=== PATIENT | female | born 1995 | race Caucasian/White ===

== ENCOUNTER 2017-04-11 23:52 | Emergency (ER) | payer OTHER, MEDICAID, SELFPAY ==
[2017-04-11 23:52] VITALS: BP 136/96; PULSE 129; RESP 20; TEMP 37; O2SAT 100; BMI 19.1
--- NOTE | 2017-04-12 00:03 | RAD_ITS ---
STUDY: X-RAY CHEST REASON FOR EXAM: Female, 22 years old. Cough for one and half weeks. TECHNIQUE: Single AP portable view of the chest. COMPARISON: 03/22/2016. FINDINGS: The lungs are somewhat hyperinflated. No focal infiltrate is seen. There is no demonstrated pleural abnormality. Normal size heart. Normal mediastinum and natonio. Normal visualized pulmonary arteries. Normal visualized aortic arch and descending thoracic aorta. There is mild dextroscoliosis which could be positional. Normal visualized ribs, clavicles, and shoulders. There is no demonstrated abnormality of the visualized soft tissue structures of the upper abdomen. RAD/Chest 1 View (Portable) IMPRESSION: No active pulmonary disease. Electronically Signed: Michele Montejo MD at 1:01 EST Tel , Service support ,
[2017-04-12] MEDS: DiphenhydrAMINE 50 MG/ML Syringe 12.5 MG IV (00:17)
[2017-04-12] MEDS: MethylPREDNISolone 125 MG/2 ML Vial 80 MG IV (00:17)
--- NOTE | 2017-04-12 01:51 | ED.DCSUM_ITS ---
- ER Visit Summary Date of Service: 04/12/17 Chief Complaint: Lip swelling History of Present Illness: The patient is a 22 F with lower lip swelling that has occurred over the past 3 hours. She was recently started on Tessalon Perles as well as amoxicillin for cough and congestion. She has reportedly taken amoxicillin in the past that difficulty. Father states he also put Orajel on her lower lip tonight for what was assumed to be a canker sore. She denies rash or itching. She denies any difficulty breathing or swallowing. Past history significant for asthma, cerebral palsy, and ADHD. Physical Examination: Initial vital signs are significant for heart rate of 129 , otherwise normal. Her pulse ox is 100% on room air. Patient sitting upright in bed no acute distress. Head neck examination does reveal left lower lip edema. There is no tongue edema and posterior pharynx is normal. Heart is tachycardic and regular. Lung sounds are clear with good air movement. Abdomen is soft nontender. Skin examination reveals no rash or lesions. Test Results: Portable chest was obtained for her recent cough and congestion. There is no evidence of focal infiltrate. Emergency Department Course and Treatment: Patient was treated with Benadryl, Solu-Medrol, and Pepcid. She is rechecked multiple times over the next 2 hours. Lip swelling is improved and she has not developed any tongue edema. At this time patient will stop antibiotics as I do not feel that it is needed. This is consistent with a viral illness. I am concerned she may have had a reaction to the topical Orajel as the swelling was only in the location where this was applied. Father also believes she may have bitten her lip causing swelling. We will closely observe her over the next several days to watch for any worsening. Treatment Plan: [] Disposition: Discharge Impression: Lower lip edema, improved This note was generated with xiao qu wu [employer] dictation software. It may contain incorrect words, spelling, and punctuation that were not noted in review of the chart prior to signing ED Disposition - Plan for ED Patient: Disposition: Home or Assisted Living Chief Complaint: Allergic Reaction Instructions: ED Allergic Reaction Local Other, ED URI Viral Referrals: Tamanna Alvarez MD [Primary Care Provider] - 1-2 Days if not improving
[2017-04-12 02:07] VITALS: PULSE 102; RESP 17; O2SAT 96
--- NOTE | 2017-04-12 02:08 | ED.RN ---
pt and father given written and verbal discharge instructions. pt to stop her antibiotic, pt is to follow up with primary dr. pt father verbalizes understanding of d/c instructions. pt iv d/c and site covered with 2x2 gauze dressing. pt ambulatory home with father.
== END 2017-04-12 02:00 | disposition home or self-care (01) ==
PROVIDERS: Emergency Provider Emergency Medicine; Family Provider Pediatrics; PCP Pediatrics
DX: R60.9 Edema, unspecified (principal); J45.909 Unspecified asthma, uncomplicated; G80.9 Cerebral palsy, unspecified; F90.9 Attention-deficit hyperactivity disorder, unspecified type; R05 Cough
CPT/HCPCS: 71045; 96374; 96375; 99284; A4216; J3490

== ENCOUNTER → 2017-09-18 17:14 | Outpatient (CLI) | payer OTHER, MEDICAID, SELFPAY ==
--- NOTE | 2017-09-18 17:16 | RAD_ITS ---
STUDY: X-RAY CHEST REASON FOR EXAM: Female, 22 years old. Cough TECHNIQUE: PA and lateral COMPARISON: April 12 2017 FINDINGS: The lungs are clear and expanded. There is no demonstrated pleural abnormality. Normal size heart. Normal mediastinum and antonio. Normal visualized pulmonary arteries. Normal visualized aortic arch and descending thoracic aorta. Minor dextroscoliosis of the dorsal spine.. Normal visualized ribs, clavicles, and shoulders. There is no demonstrated abnormality of the visualized soft tissue structures of the upper abdomen. No significant change since prior exam RAD/Chest PA and Lateral IMPRESSION: No acute cardiopulmonary pathology Electronically Signed: Greg Valero MD at 18:00 EDT , Service support ,
== END ==
PROVIDERS: Family Provider Pediatrics; PCP Pediatrics; Visit Provider Pediatrics
DX: R61 Generalized hyperhidrosis (principal)
CPT/HCPCS: 71046

== ENCOUNTER 2018-04-12 21:05 | Emergency (ER) | payer OTHER, MEDICARE, MEDICAID, SELFPAY ==
[2018-04-12 21:06] VITALS: BP 117/72; PULSE 150; RESP 15; TEMP 37.3; BMI 18.9
--- NOTE | 2018-04-12 21:30 | CT_ITS ---
STUDY: CT ABDOMEN AND PELVIS WITH CONTRAST REASON FOR EXAM: Female, 23 years old. Abdomen pain. Nausea and vomiting. RADIATION DOSAGE (If Supplied By Facility): CTDIvol = ( 7.97 ) mGy, DLP = ( 282.29 ) mGycm TECHNIQUE: Transaxial images were obtained from the dome of the diaphragm to the symphysis pubis without oral contrast. Isovue 300 100 IV/Oral was administered. Sagittal and coronal images were reconstructed. Individualized dose optimization techniques were used for this CT. COMPARISON: None. FINDINGS: Ill-defined patchy airspace opacities are noted in the right lower lobe, right middle lobe and left lower lobe suggesting bilateral pneumonia. The visualized portions of the heart are within normal limits. Normal liver. Normal gallbladder and extrahepatic biliary system. Normal spleen. Normal pancreas. Normal bilateral adrenal glands. Normal right kidney. Normal left kidney. Normal visualized stomach. Normal small intestine. Normal colon. The appendix is visualized and appears normal. Normal abdominal aorta. Normal inferior vena cava. Normal retroperitoneum. Normal urinary bladder. Normal abdominal wall. Normal osseous structures. CT/Abdomen/Pelvis WITH Contrast IMPRESSION: Bilateral pneumonia in the lung bases. Electronically Signed: Serafin Givens, at 0:16 EST Tel , Service support ,
[2018-04-12 21:51] LABS: Red Blood Cells-Urine 0 SEEN /hpf (0-5); White Blood Cells 0 SEEN /hpf (0-5)
[2018-04-12] MEDS: 0.9% Normal Saline 1,000 ML 1000 ML IV (21:52)
[2018-04-12 21:53] LABS: Color, Urine Yellow (Yellow); Glucose, Dipstick Normal (Normal); Ketone-Dipstick 15 mg/dl (Negative); Leukocyte Esterase-Dipstick 25 /ul (Negative); Nitrite-Dipstick Positive (Negative); Occult Blood-Urine 10 /ul (Negative); Protein-Dipstick 30 mg/dl (Negative); Urine Clarity Clear (Clear); Urine Urobilinogen 4 mg/dl (Normal)
[2018-04-12] MEDS: proMETHazine 25 MG/ML Syringe 12.5 MG IV (21:53)
[2018-04-12] MEDS: Morphine 2 MG/ML Syringe IV (21:53)
[2018-04-12 21:54] LABS: Urine Bilirubin Dipstick 1 mg/dL (Negative)
[2018-04-12 21:56] VITALS: PULSE 143; RESP 20; O2SAT 94
[2018-04-12 22:04] LABS: Bacteria RARE /hpf (None Seen); Mucous, Urine 1+ /hpf (<or=2+)
[2018-04-12 22:05] LABS: Squamous Epithelial Cells - UA 0-5 SEEN /hpf (5-10)
[2018-04-12 22:08] LABS: Absolute Lymphocyte Count 1.22 X10^3/ul (0.83-4.51); Absolute Neutrophil Count 12.5 X10^3/uL (2.0-7.7); Basophil# 0.01 X10^3/uL; Basophil% 0.1 % (0-1); Eosinophil# 0.04 X10^3/uL; Eosinophils% 0.3 % (0-5); Hematocrit 43.4 % (37-47); Hemoglobin 14.2 g/dl (12.0-15.0); Lymphocyte # 1.22 X10^3/ul (4.0); Lymphocyte % 8.3 % (19-41); Mean Corp Hgb Conc 32.7 g/gl (32-36); Mean Corpuscular Hgb 28.1 pg (27.0-32.0); Mean Corpuscular Volume 85.9 fL (81-99); Mean Platelet Vol. 9.2 fl (6.2-12.0); Monocyte# 0.95 X10^3/uL; Monocyte% 6.4 % (0-10); Neutrophil # 12.49 X10^3/uL (2.7-7.7); Neutrophil % 84.8 % (47-70); POSITIVE COUNT NO; POSITIVE DIFFERENTIAL NO; POSITIVE MORPHOLOGY NO; Platelet Count 348 K/mm3 (150-450); RBC Distribution Width CV 13.1 % (11.6-14.6); RBC Distribution Width SD 41.2 fl (35.1-43.9); Red Blood Count 5.05 M/mm3 (4.2-5.4); White Blood Count 14.7 K/mm3 (4.4-11.0)
[2018-04-12 22:21] LABS: ALB/GLOB Ratio 0.8 RATIO (0.9-2.4); AST(SGOT) 19 U/L (15-37); Alanine Aminotransfer ALT/SGPT 24 U/L (13-56); Albumin, Serum 3.4 g/dL (3.2-5.0); Alkaline Phosphatase 91 U/L (45-117); Anion Gap 13 (5-15); BUN 16 mg/dL (7-18); BUN/Creat Ratio 16.8 RATIO (10-20); Calcium,Total 8.4 mg/dL (8.5-10.1); Chloride 105 mmol/L (98-107); Creatinine, Serum 0.95 mg/dL (0.55-1.02); EST Glomerular Filtration Rate 78 mL/min (>60); Est Glom Filt Rate - Afr Amer 94 mL/min (>60); Estimated Creatinine Clearance 64.52 ml/min; Globulin 4.3 g/dL (2.2-4.2); Glucose 166 mg/dL (74-106); Potassium 3.5 mmol/L (3.5-5.1); Protein, Total 7.7 g/dL (6.4-8.2); Sodium Level 139 mmol/L (136-145)
[2018-04-12 22:25] LABS: Pregnancy, Serum, hCG Quali. NEGATIVE Negative (0-9 Nonpreg)
[2018-04-12 22:46] VITALS: PULSE 113; RESP 18; O2SAT 95
--- NOTE | 2018-04-12 23:43 | ED.VISSUMM ---
- ER Visit Summary Date of Service: 04/12/18 Chief Complaint: [Abdominal pain and vomiting.] History of Present Illness: The patient is a 23 F [presents to the emergency department with complaint of nausea and vomiting and abdominal pain since yesterday. Patient had one episode of diarrhea tonight. Mom states that she initially vomited for about 6 hours when the illness first started and then she stopped vomiting throughout the day but started vomiting and tonight. 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 Patient has been complaining of abdominal pain. She has not had any dysuria. Patient has urinated twice today. Patient also has had a cough and a runny nose for about a week.] Physical Examination: [HEENT-PERRLA, EOMI. Cranial nerves II through XII grossly intact. TMs clear. Mucous membranes dry. No adenopathy. Cardiovascular-regular and tachycardic, no murmurs auscultated Lungs-clear to auscultation, chest wall stable without crepitus or subcu emphysema Abdomen-normoactive bowel sounds, soft. Patient does have tenderness palpation over right lower quadrant with some guarding. There is no rebound, rigidity, or perineal signs. Extremities-intact ?4, normal range of motion, normal pulses, atraumatic] Test Results: [CBC with differential obtained showed a white count of 14.7, hemoglobin 14, hematocrit 43, placed 348. Chemistries unremarkable. Glucose was 166. LFTs were unremarkable. Urinalysis was unremarkable. HCG was negative. CT scan of the abdomen pelvis with IV and p.o. contrast ordered] Emergency Department Course and Treatment: [Was medicated with morphine and Zofran and ordered 2 L of normal saline.] Treatment Plan: [Care of patient turned over to evening physician awaiting CT results and final disposition] Disposition: [Pending] Impression: [Abdominal pain Gastroenteritis] This note was generated with [employer] dictation software. It may contain incorrect words, spelling, and punctuation that were not noted in review of the chart prior to signing ED Disposition - Plan for ED Patient: Referrals: Tamanna Alvarez MD [Primary Care Provider] -
--- NOTE | 2018-04-12 23:46 | ED.DCSUM_ITS ---
- ER Visit Summary Date of Service: 04/12/18 Chief Complaint: [Abdominal pain and vomiting.] History of Present Illness: The patient is a 23 F [presents to the emergency department with complaint of nausea and vomiting and abdominal pain since yesterday. Patient had one episode of diarrhea tonight. Mom states that she initially vomited for about 6 hours when the illness first started and then she stopped vomiting throughout the day but started vomiting and tonight. 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 Patient has been complaining of abdominal pain. She has not had any dysuria. Patient has urinated twice today. Patient also has had a cough and a runny nose for about a week.] Physical Examination: [HEENT-PERRLA, EOMI. Cranial nerves II through XII gross ly intact. TMs clear. Mucous membranes dry. No adenopathy. Cardiovascular-regular and tachycardic, no murmurs auscultated Lungs-clear to auscultation, chest wall stable without crepitus or subcu emphysema Abdomen-normoactive bowel sounds, soft. Patient does have tenderness palpation over right lower quadrant with some guarding. There is no rebound, rigidity, or perineal signs. Extremities-intact ?4, normal range of motion, normal pulses, atraumatic] Test Results: [CBC with differential obtained showed a white count of 14.7, hemoglobin 14, hematocrit 43, placed 348. Chemistries unremarkable. Glucose was 166. LFTs were unremarkable. Urinalysis was unremarkable. HCG was negative. CT scan of the abdomen pelvis with IV and p.o. contrast ordered] Emergency Department Course and Treatment: [Was medicated with morphine and Zofran and ordered 2 L of normal saline.] Treatment Plan: [Care of patient turned over to evening physician awaiting CT results and final disposition] Disposition: [Pending] Impression: [Abdominal pain Gastroenteritis] This note was generated with [employer] dictation software. It may contain incorrect words, spelling, and punctuation that were not noted in review of the chart prior to signing ED Disposition - Plan for ED Patient: Referrals: Tamanna Alvarez MD [Primary Care Provider] -
[2018-04-12] MEDS: 0.9% Normal Saline 1,000 ML 999 ML IV (23:49)
--- NOTE | 2018-04-13 00:27 | ED.DCSUM_ITS ---
- ER Visit Summary Date of Service: 04/13/18 Chief Complaint: [] History of Present Illness: The patient is a 23 F [] Physical Examination: [] Test Results: [] Emergency Department Course and Treatment: [] Treatment Plan: [] Disposition: [] Impression: [] This note was generated with [employer] dictation software. It may contain incorrect words, spelling, and punctuation that were not noted in review of the chart prior to signing ED Disposition - Plan for ED Patient: Instructions: ED Nausea Vomiting Prescriptions: Ondansetron [Zofran Odt] 4 mg PO Q8H PRN PRN #10 tab PRN Reason: Nausea Amox/Clavulanate Tablet [Augmentin Tablet] 875 mg PO Q12H #20 tab Referrals: Tamanna Alvarez MD [Primary Care Provider] -
[2018-04-13] MEDS: Ondansetron ODT 4 MG Tablet PO (00:36)
[2018-04-13] MEDS: Amox/Clavulanate 875 MG Tablet PO (00:36)
[2018-04-13 00:39] VITALS: BP 113/74; PULSE 125; RESP 20
== END 2018-04-13 00:40 | disposition home or self-care (01) ==
LOC: ED 22:08
PROVIDERS: Emergency Provider Emergency Medicine; Family Provider Pediatrics; PCP Pediatrics
DX: K52.9 Noninfective gastroenteritis and colitis, unspecified (principal); K21.9 Gastro-esophageal reflux disease without esophagitis; G80.9 Cerebral palsy, unspecified
CPT/HCPCS: 74177; 80053; 81001; 84703; 85025; 96361; 96374; 96375; 99285; J7030; Q9967; A4216

== ENCOUNTER → 2018-06-23 16:00 | Outpatient (CLI) | payer OTHER, MEDICARE, MEDICAID, SELFPAY ==
--- NOTE | 2018-06-23 16:11 | RAD_ITS ---
STUDY: X-RAY CHEST REASON FOR EXAM: Female, 23 years old. History of pneumonia. TECHNIQUE: PA and lateral views of the chest. COMPARISON: Comparison is made with prior study September 18, 2017. FINDINGS: The lungs are clear and expanded. There is no demonstrated pleural abnormality. Normal size heart. Normal mediastinum and antonio. Normal visualized pulmonary arteries. Normal visualized aortic arch and descending thoracic aorta. Normal visualized thoracic spine. Normal visualized ribs, clavicles, and shoulders. There is no demonstrated abnormality of the visualized soft tissue structures of the upper abdomen. RAD/Chest PA and Lateral IMPRESSION: Normal x-ray examination of the chest. Electronically Signed: Dewayne Maria, at 12:57 EDT , Service support ,
== END ==
PROVIDERS: Family Provider Pediatrics; PCP Pediatrics
DX: J18.1 Lobar pneumonia, unspecified organism (principal)
CPT/HCPCS: 71046

== ENCOUNTER → 2019-02-06 13:50 | Outpatient (CLI) | payer OTHER, MEDICARE, MEDICAID, SELFPAY ==
[2019-02-06 13:47] VITALS: BMI 18.9
--- NOTE | 2019-02-06 13:52 | RAD_ITS ---
STUDY: X-RAY CHEST REASON FOR EXAM: Female, 24 years old. Cough TECHNIQUE: Frontal and lateral views of the chest COMPARISON: 06/23/2018 FINDINGS: The lungs are clear. There are no pleural effusions. There is no pneumothorax. The heart is normal in size. The visualized osseous structures are within normal limits. RAD/Chest PA and Lateral IMPRESSION: No acute thoracic pathology. Electronically Signed: Prosper Kurtz, at 14:25 EST Tel , Service support ,
== END ==
PROVIDERS: Family Provider Pediatrics; PCP Pediatrics; Referring Provider Physician Assistant Surgical; Visit Provider Physician Assistant Surgical
DX: R05 Cough (principal)
CPT/HCPCS: 71046

== ENCOUNTER 2019-03-31 18:54 | Emergency (ER) | payer OTHER, MEDICARE, MEDICAID, SELFPAY ==
[2019-02-06 13:47] VITALS: BMI 18.9
[2019-03-31 18:56] VITALS: BP 121/83; PULSE 82; RESP 16; TEMP 37; O2SAT 98; BMI 19.5
--- NOTE | 2019-03-31 19:40 | CT_ITS ---
STUDY: CT ABDOMEN AND PELVIS WITH CONTRAST REASON FOR EXAM: Female, 24 years old. RT SIDED ABD PAIN. Hx of asthma. No prev abdominal surgeries RADIATION DOSAGE (If Supplied By Facility): CTDIvol = ( 9.28 ) mGy, DLP = ( 255.68 ) mGycm TECHNIQUE: Transaxial images were obtained from the dome of the diaphragm to the symphysis pubis with oral contrast. Oral and amp; IV Gastrografin and amp; 75mL Isovue-300 was administered. Sagittal and coronal images were reconstructed. Individualized dose optimization techniques were used for this CT. COMPARISON: April 12, 2018 FINDINGS: The visualized lung bases are unremarkable. The visualized portions of the heart are within normal limits. Normal liver. Normal gallbladder and extrahepatic biliary system. Normal spleen. Normal pancreas. Normal bilateral adrenal glands. Normal right kidney. Normal left kidney. Normal visualized stomach. Normal small intestine. Normal colon. The appendix is visualized and appears normal. Normal abdominal aorta. Normal inferior vena cava. Normal retroperitoneum. Normal urinary bladder. Normal abdominal wall. Normal osseous structures. CT/Abdomen/Pelvis WITH Contrast IMPRESSION: No evidence of appendicitis, acute intestinal pathology, or acute obstructive uropathy. Electronically Signed: Bobo Almonte MD at 21:44 EST Tel , Service support ,
[2019-03-31 20:06] LABS: Absolute Lymphocyte Count 3.99 X10^3/uL (0.83-4.51); Absolute Neutrophil Count 5.6 X10^3/uL (2.0-7.7); Basophil# 0.04 X10^3/uL; Basophil% 0.4 % (0-1); Eosinophil# 0.05 X10^3/uL; Eosinophils% 0.5 % (0-5); Hematocrit 39.5 % (37-47); Hemoglobin 12.7 g/dL (12.0-15.0); Lymphocyte # 3.99 X10^3/ul (4.0); Lymphocyte % 38.1 % (19-41); Mean Corp Hgb Conc 32.2 g/dL (32-36); Mean Corpuscular Hgb 27.4 pg (27.0-32.0); Mean Corpuscular Volume 85.1 fL (81-99); Mean Platelet Vol. 9.4 fl (6.2-12.0); Monocyte# 0.83 X10^3/uL; Monocyte% 7.9 % (0-10); NRBC Flagged by Analyzer 0 % (0-5); Neutrophil # 5.55 X10^3/uL (2.7-7.7); Platelet Count 372 K/mm3 (150-450); RBC Distribution Width CV 13.4 % (11.6-14.6); RBC Distribution Width SD 41.5 fl (35.1-43.9); Red Blood Count 4.64 M/mm3 (4.2-5.4); White Blood Count 10.5 K/mm3 (4.4-11.0)
[2019-03-31 20:15] LABS: Internal QC Validated? YES +Cl - CLEAR BKGD; Pregnancy, Serum, hCG Quali. NEGATIVE Negative
[2019-03-31 20:22] LABS: ALB/GLOB Ratio 0.9 RATIO (0.9-2.4); AST(SGOT) 13 U/L (15-37); Alanine Aminotransfer ALT/SGPT 22 U/L (13-56); Albumin, Serum 3.6 g/dL (3.2-5.0); Alkaline Phosphatase 116 U/L (45-117); Anion Gap 5 (5-15); BUN 12 mg/dL (7-18); Calcium,Total 9.3 mg/dL (8.5-10.1); Chloride 107 mmol/L (98-107); Creatinine, Serum 0.86 mg/dL (0.55-1.02); EST Glomerular Filtration Rate 87 mL/min (>60); Est Glom Filt Rate - Afr Amer 105 mL/min (>60); Estimated Creatinine Clearance 72.85 ml/min; Globulin 4.1 g/dL (2.2-4.2); Glucose 89 mg/dL (74-106); Potassium 3.8 mmol/L (3.5-5.1); Protein, Total 7.7 g/dL (6.4-8.2); Sodium Level 139 mmol/L (136-145)
[2019-03-31] MEDS: 0.9% Normal Saline 1,000 ML 125 ML IV (20:25)
[2019-03-31] MEDS: Ondansetron 4 MG/2 ML Vial IV (20:26)
[2019-03-31] MEDS: Ketorolac 30 MG/ML Syringe IV (20:26)
[2019-03-31 20:42] LABS: Bacteria 0 SEEN /hpf (None Seen); Mucous, Urine 0 SEEN /hpf (<or=2+)
[2019-03-31 20:52] LABS: Color, Urine Yellow (Yellow); Glucose, Dipstick Normal (Normal); Ketone-Dipstick Negative (Negative); Leukocyte Esterase-Dipstick 25 /ul (Negative); Nitrite-Dipstick Negative (Negative); Occult Blood-Urine Negative /ul (Negative); Protein-Dipstick Negative (Negative); Urine Bilirubin Dipstick Negative (Negative); Urine Clarity Sl. Cloudy (Clear); Urine Urobilinogen Normal (Normal)
[2019-03-31 21:04] LABS: Red Blood Cells-Urine 0-5 SEEN /hpf (0-5); Squamous Epithelial Cells - UA 0-5 SEEN /hpf (5-10); White Blood Cells 0-5 SEEN /hpf (0-5)
[2019-03-31] MEDS: Dicyclomine 20 MG/2 ML Vial 10 MG IM (22:09)
--- NOTE | 2019-03-31 22:12 | ED.VISSUMM ---
- ER Visit Summary Date of Service: 03/31/19 Chief Complaint: [Abdominal pain] History of Present Illness: The patient is a 24 F [presents to the emergency department with complaint of abdominal pain that is been intermittent since February. Patient has had some chronic constipation issues and oftentimes has to use laxatives to be able to have bowel movements. She is had no fever or vomiting. Last BM was 2 days ago. Patient does have history of asthma. No abdominal surgeries. Patient has not had any urinary symptoms. Last menstrual period was about 6 weeks ago. Patient is on an oral contraceptive.] Physical Examination: [HEENT-PERRLA, EOMI. Cranial nerves II through XII grossly intact. TMs clear. Mucous membranes moist. No adenopathy. Cardiovascular-regular rate and rhythm without murmur or ectopy Lungs-clear to auscultation, chest wall stable without crepitus or subcu emphysema Abdomen-normoactive bowel sounds, soft. Patient has tenderness diffusely about the right side of the abdomen. There is guarding. There is no rebound, rigidity, or perineal signs. Extremities-intact ?4, normal range of motion, normal pulses, atraumatic] Test Results: [CBC with differential obtained showed a white count of 10.5. Chemistries unremarkable. LFTs were unremarkable. Urinalysis was normal. hCG was negative.] CT scan of the abdomen pelvis showed nothing acute and showed a normal appendix. Emergency Department Course and Treatment: [Patient initially was medicated morphine and Zofran. She continued to complain of discomfort and was given Bentyl 20 mg IM.] Treatment Plan: [Follow-up with primary care physician in 3 to 5 days] Disposition: [Discharged home in stable condition] Impression: [Abdominal pain-etiology uncertain] This note was generated with [employer] software. It may contain incorrect words, spelling, and punctuation that were not noted in review of the chart prior to signing ED Disposition - Plan for ED Patient: Referrals: Tamanna Alvarez MD [Primary Care Provider] -
--- NOTE | 2019-03-31 22:15 | ED.DEP ---
ED Disposition - Plan for ED Patient: Instructions: ABDOMINAL PAIN, Unknown Cause, (Female) Prescriptions: Dicyclomine HCl [Bentyl] 20 mg PO TIDAC #20 cap Prescription Printed Referrals: Tamanna Alvarez MD [Primary Care Provider] - 3-5 Days
[2019-03-31 22:20] VITALS: BP 101/56; PULSE 77; RESP 16; RESP 18; O2SAT 97
--- NOTE | 2019-03-31 22:22 | ED.RN ---
REVIEWED D/C INSTRUCTIONS, FOLLOW UP CARE, PRESCRIPTION, AND S/S THAT WOULD WARRANT A RETURN TO THE ED WITH PT'S MOTHER. MOTHER VERBALIZED AN UNDERSTANDING AND DENIES FURTHER QUESTIONS FOR THIS RN. PT SKIN P/W/D, RESP EVEN AND UNLABORED, PT BEHAVIOR AGE APPROPRIATE, NO DISTRESS NOTED. PT AMBULATED OUT OF ED, GAIT STEADY.
== END 2019-03-31 22:23 | disposition home or self-care (01) ==
LOC: ED 19:36
PROVIDERS: Emergency Provider Emergency Medicine; PCP Pediatrics
DX: R10.11 Right upper quadrant pain (principal); R10.31 Right lower quadrant pain; K59.09 Other constipation; J45.909 Unspecified asthma, uncomplicated
CPT/HCPCS: 74177; 80053; 81001; 84703; 85025; 96361; 96372; 96374; 96375; 99283; J7030; Q9967; A4216; J2405

== ENCOUNTER → 2019-07-17 13:19 | Outpatient (CLI) | payer OTHER, MEDICARE, MEDICAID, SELFPAY ==
--- NOTE | 2019-07-17 13:26 | CT_ITS ---
STUDY: CT ABDOMEN AND PELVIS WITH CONTRAST REASON FOR EXAM: Female, 24 years old. R SIDE ABD PAIN STARTED LAST NIGHT. VOMITING. G-TUBE REMOVED 2 YRS AGO, FUNDOPLYCATION RADIATION DOSAGE (If Supplied By Facility): CTDIvol = ( 7.64 ) mGy, DLP = ( 255.66 ) mGycm TECHNIQUE: Transaxial images were obtained from the dome of the diaphragm to the symphysis pubis with oral contrast. Oral and amp;amp; IV Gastrografin and amp;amp; 100mL Isovue-300 was administered. Sagittal and coronal images were reconstructed. Individualized dose optimization techniques were used for this CT. COMPARISON: 03/31/2019 FINDINGS: Patchy alveolar densities in the lung bases consistent with pneumonia or atelectasis. The visualized portions of the heart are within normal limits. Normal liver. Normal gallbladder and extrahepatic biliary system. Normal spleen. Normal pancreas. Normal bilateral adrenal glands. Normal right kidney. Normal left kidney. Normal visualized stomach. Normal small intestine. Normal colon. The appendix is visualized and appears normal. Normal abdominal aorta. Normal inferior vena cava. Normal retroperitoneum. Normal urinary bladder. Normal abdominal wall. Normal osseous structures. CT/Abdomen/Pelvis WITH Contrast IMPRESSION: Normal enhanced CT of the abdomen and pelvis. Bibasilar atelectasis or pneumonia. Electronically Signed: Keon Amezcua MD at 16:23 EDT Tel , Service support ,
== END ==
PROVIDERS: PCP Pediatrics; Referring Provider Pediatrics; Visit Provider Pediatrics
DX: R10.9 Unspecified abdominal pain (principal); R11.10 Vomiting, unspecified
CPT/HCPCS: 74177; Q9967

== ENCOUNTER → 2020-01-01 13:10 | Outpatient (CLI) | payer OTHER, MEDICARE, MEDICAID, SELFPAY ==
--- NOTE | 2020-01-01 14:00 | RAD_ITS ---
STUDY: X-RAY CHEST REASON FOR EXAM: Female, 24 years old. RECURRENT PNEUMONIA -- HK OF SCARRING ON LUNGS TECHNIQUE: PA and lateral views of the chest. COMPARISON: Comparison is made with prior study dated 02/06/2019. FINDINGS: Hyperinflation. Scattered calcified granulomas. The lungs are clear. There is no demonstrated pleural abnormality. Normal size heart. Normal mediastinum and antonio. Normal visualized pulmonary arteries. Normal visualized aortic arch and descending thoracic aorta. Normal visualized thoracic spine. Normal visualized ribs, clavicles, and shoulders. There is no demonstrated abnormality of the visualized soft tissue structures of the upper abdomen. RAD/Chest PA and Lateral IMPRESSION: Hyperinflation. No acute abnormality is seen. Electronically Signed: Dewayne Maria, at 15:21 EST , Service support ,
== END ==
PROVIDERS: PCP Pediatrics
DX: J18.9 Pneumonia, unspecified organism (principal)
CPT/HCPCS: 71046

== ENCOUNTER → 2020-09-30 13:43 | Outpatient (CLI) | payer OTHER, MEDICARE, MEDICAID, SELFPAY | PROVIDERS: Visit Provider Family Medicine | DX: R09.89 Other specified symptoms and signs involving the circulatory and respiratory systems (principal) | CPT/HCPCS: 87635; U0005; U0003 ==

== ENCOUNTER → 2020-10-03 16:37 | Outpatient (CLI) | payer OTHER, MEDICARE, MEDICAID, SELFPAY ==
--- NOTE | 2020-10-03 16:41 | RAD_ITS ---
STUDY: X-RAY CHEST REASON FOR EXAM: Female, 25 years old. COUGH TECHNIQUE: PA and lateral views of the chest. COMPARISON: 01/01/2020 FINDINGS: The lungs are clear and expanded. There is no demonstrated pleural abnormality. Normal size heart. Normal mediastinum and antonio. Normal visualized pulmonary arteries. Normal visualized aortic arch and descending thoracic aorta. Normal visualized thoracic spine. Normal visualized ribs, clavicles, and shoulders. There is no demonstrated abnormality of the visualized soft tissue structures of the upper abdomen. RAD/Chest PA and Lateral IMPRESSION: Normal x-ray examination of the chest. Electronically Signed: Keon Amezcua MD at 9:29 EDT Tel , Service support ,
== END ==
PROVIDERS: PCP Family Medicine; Referring Provider Family Medicine; Visit Provider Family Medicine
DX: R05 Cough (principal)
CPT/HCPCS: 71046

== ENCOUNTER → 2020-11-22 16:32 | Outpatient (CLI) | payer OTHER, MEDICARE, MEDICAID, SELFPAY ==
--- NOTE | 2020-11-22 16:35 | RAD_ITS ---
EXAM: XR ABDOMEN, 1 VIEW CLINICAL INDICATION: constipation TECHNIQUE: Frontal supine view of the abdomen/pelvis. This report was created using [employer] report generation technology. COMPARISON: None. FINDINGS: LOWER THORAX: No acute pathology. GASTROINTESTINAL TRACT: Stool throughout the colon. Non-obstructive. No bowel or stomach distention. ORGANS: Unremarkable as visualized. No organomegaly. No abnormal calcifications. BONES/JOINTS: Mild scoliosis of the lumbar spine. SOFT TISSUES: No acute pathology. RAD/Abdomen Single View IMPRESSION: Stool throughout the colon. Electronically Signed: Kevon Draper MD at 16:50 EDT , Service support ,
== END ==
PROVIDERS: PCP Family Medicine; Referring Provider Internal Medicine Gastroenterology; Visit Provider Internal Medicine Gastroenterology
DX: K59.00 Constipation, unspecified (principal)
CPT/HCPCS: 74018

== ENCOUNTER → 2020-11-23 14:48 | Outpatient (CLI) | payer OTHER, MEDICARE, MEDICAID, SELFPAY ==
--- NOTE | 2020-11-23 14:51 | CT_ITS ---
STUDY: CT ABDOMEN AND PELVIS WITH CONTRAST REASON FOR EXAM: Female, 25 years old. Constipation, suspected bowel obstruction, abd paisn RADIATION DOSAGE (If Supplied By Facility): CTDIvol = ( 5.62 ) mGy, DLP = ( 235.82 ) mGycm TECHNIQUE: Transaxial images were obtained from the dome of the diaphragm to the symphysis pubis without oral contrast. IV 60ML ISOVUE 300 was administered. Sagittal and coronal images were reconstructed. Individualized dose optimization techniques were used for this CT. COMPARISON: Comparison is made with prior study dated 07/17/2019. FINDINGS: The visualized lung bases are unremarkable. The visualized portions of the heart are within normal limits. Normal liver. Normal gallbladder and extrahepatic biliary system. Normal spleen. Normal pancreas. Normal bilateral adrenal glands. Normal right kidney. Normal left kidney. There is a small hiatal hernia. Normal small intestine. Large amount of fecal material is seen in the colon. The appendix is visualized and appears normal. Normal abdominal aorta. Normal inferior vena cava. Normal retroperitoneum. Normal urinary bladder. Normal abdominal wall. Mild dextroscoliosis. CT/Abdomen/Pelvis W IV Cont ONLY IMPRESSION: Large amount of fecal material is seen in the colon. Electronically Signed: Dewayne Maria MD at 15:28 EDT , Service support ,
== END ==
PROVIDERS: PCP Family Medicine; Referring Provider Internal Medicine Gastroenterology; Visit Provider Internal Medicine Gastroenterology
DX: K59.00 Constipation, unspecified (principal)
CPT/HCPCS: 74177; Q9967

== ENCOUNTER → 2020-11-25 16:13 | Outpatient (CLI) | payer OTHER, MEDICARE, MEDICAID, SELFPAY ==
--- NOTE | 2020-11-25 16:16 | US_ITS ---
STUDY: ABDOMINAL ULTRASOUND REASON FOR EXAM: Female, 25 years old. Right upper quadrant pain TECHNIQUE: Transabdominal ultrasound was performed with real-time and static stewart scale imaging. TECHNICAL QUALITY: Adequate. COMPARISON: None. FINDINGS: Liver: The liver measures 14.1 cm. There is normal echogenicity of the liver. The bile ducts are within normal limits. There is hepatic color flow. The direction of portal flow is hepatopetal. There is no demonstrated mass lesion. Portal vein measurement: Gallbladder: Normal distended gallbladder. The gallbladder wall measures 2 mm. There is a negative sonographic Frausto''s sign. There is no pericholecystic fluid. There are no gallstones. Common Bile Duct (C.B.D.): The common bile duct measures 4 mm. Pancreas: Normal size of the head, body and tail of the pancreas. There is normal echogenicity of the pancreas. There is no demonstrated pancreatic mass or cyst. Spleen: Normal size of the spleen. The spleen measures 9 cm. Right Kidney: Normal size of the right kidney. The right kidney measures 8.6 x 3.8 x 3.0 cm. Normal renal cortex. The right cortex measures 0.7 cm. There is no demonstrated renal mass or cyst. There is no right hydronephrosis. Left Kidney: Normal size of the left kidney. The left kidney measures 7.9 x 4.1 x 4.5 cm. Normal renal cortex. The left cortex measures 1.9 cm. There is no demonstrated renal mass or cyst. There is no left hydronephrosis. Aorta: 1.4 I.V.C.: The IVC is patent. There is no ascites. US/Abdomen Complete IMPRESSION: Normal abdominal ultrasound examination. Electronically Signed: Miguel Rubio MD at 20:54 EDT Tel , Service support ,
== END ==
PROVIDERS: PCP Family Medicine; Referring Provider Internal Medicine Gastroenterology; Visit Provider Internal Medicine Gastroenterology
DX: K81.9 Cholecystitis, unspecified (principal)
CPT/HCPCS: 76700

== ENCOUNTER 2021-04-25 15:55 | Outpatient (CLI) | payer OTHER, MEDICARE, MEDICAID, SELFPAY ==
[2021-04-25 17:58] LABS: Absolute Lymphocyte Count 2.98 X10^3/uL (0.83-4.51); Absolute Neutrophil Count 5.3 X10^3/uL (2.0-7.7); Basophil# 0.04 X10^3/uL; Basophil% 0.4 % (0-1); Eosinophil# 0.07 X10^3/uL; Eosinophils% 0.8 % (0-5); Hematocrit 42.4 % (37-47); Hemoglobin 13.4 g/dL (12.0-15.0); Lymphocyte # 2.98 X10^3/ul (0.83-4.51); Lymphocyte % 33.1 % (19-41); Mean Corp Hgb Conc 31.6 g/dL (32-36); Mean Corpuscular Hgb 26.9 pg (27.0-32.0); Mean Corpuscular Volume 85.1 fL (81-99); Mean Platelet Vol. 9.9 fl (6.2-12.0); Monocyte% 6.7 % (0-10); NRBC Flagged by Analyzer 0 % (0-5); Neutrophil # 5.29 X10^3/uL (2.7-7.7); Neutrophil % 58.8 % (47-70); Platelet Count 468 K/mm3 (150-450); RBC Distribution Width CV 14.3 % (11.6-14.6); RBC Distribution Width SD 44.1 fl (35.1-43.9); Red Blood Count 4.98 M/mm3 (4.2-5.4)
[2021-04-25 18:11] LABS: Vitamin B12 265 pg/mL (211-911); Vitamin D,25 Hydroxy 17.6 ng/mL
[2021-04-25 18:23] LABS: ALB/GLOB Ratio 0.9 RATIO (0.9-2.4); AST(SGOT) 19 U/L (15-37); Alanine Aminotransfer ALT/SGPT 27 U/L (13-56); Albumin, Serum 3.9 g/dL (3.2-5.0); Alkaline Phosphatase 111 U/L (45-117); Anion Gap 6 (5-15); BUN 11 mg/dL (7-18); BUN/Creat Ratio 11.6 RATIO (10-20); Calcium,Total 9.8 mg/dL (8.5-10.1); Chloride 106 mmol/L (98-107); Creatinine, Serum 0.95 mg/dL (0.55-1.02); EST Glomerular Filtration Rate 76 mL/min (>60); Est Glom Filt Rate - Afr Amer 92 mL/min (>60); Globulin 4.3 g/dL (2.2-4.2); Glucose 111 mg/dL (74-106); Iron 147 ug/dL (50-170); Protein, Total 8.2 g/dL (6.4-8.2); Sodium Level 137 mmol/L (136-145); Thyroid Stim Hormone (TSH) 2.98 uIU/mL (0.358-3.74)
[2021-05-11 23:01] LABS: Vitamin B1, Thiamine 134.8 nmol/L (66.5-200.0)
== END 2021-04-25 23:59 | disposition home or self-care (01) ==
LOC: MTLAB 15:57
PROVIDERS: PCP Family Medicine; Referring Provider Family Medicine; Visit Provider Family Medicine
DX: K21.9 Gastro-esophageal reflux disease without esophagitis (principal); F98.8 Other specified behavioral and emotional disorders with onset usually occurring in childhood and adolescence
CPT/HCPCS: 36415; 80053; 82306; 82607; 83540; 84425; 84443; 85025

== ENCOUNTER → 2021-07-04 | Outpatient (CLI) | payer OTHER, MEDICARE, MEDICAID, SELFPAY | END | disposition home or self-care (01) | PROVIDERS: PCP Family Medicine; Visit Provider Family Medicine | DX: J06.9 Acute upper respiratory infection, unspecified (principal) | CPT/HCPCS: 87635; U0003; U0005 ==

== ENCOUNTER → 2021-11-29 | Outpatient (CLI) | payer OTHER, MEDICARE, MEDICAID, SELFPAY ==
--- NOTE | 2021-11-29 10:50 | RAD_ITS ---
EXAM: XR THORACIC SPINE, 2 VIEWS CLINICAL INDICATION: BACK PAIN TECHNIQUE: Frontal and lateral views of the thoracic spine. This report was created using [employer] report generation technology. COMPARISON: None. FINDINGS: VERTEBRAE: Normal vertebral body heights, endplates and alignment. Preserved vertebral body height. No fracture. No spondylolisthesis. Preservation of the normal thoracic kyphosis. No significant facet arthropathy. DISC SPACES: Normal disc space heights. 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 RAD/Thoracic Spine 2 Views IMPRESSION: Normal thoracic spine radiographs. Electronically Signed: Charles Adams MD at 15:26 EDT ,
== END | disposition home or self-care (01) ==
PROVIDERS: PCP Family Medicine; Referring Provider Family Medicine; Visit Provider Family Medicine
DX: M54.6 Pain in thoracic spine (principal)
CPT/HCPCS: 72070

== ENCOUNTER 2021-12-22 15:30 | Outpatient (RCR) | payer OTHER, MEDICARE, MEDICAID, SELFPAY ==
--- NOTE | 2021-12-08 16:23 | HP.PTEVAL_ITS ---
Patient's Visit Information ROCHELLE TRINH is a 26 year old F referred to Physical Therapy by Dr. Mike Roy MD with a diagnosis of MID BACK PAIN. Date of Evaluation: 12/08/21 Physical Therapist: Adarsh Beckham, PT, Cert MDT, OCS - Visit Plan Frequency: 1-2x /Week Duration: 4 Weeks Plan: PT INTERVETIONS THORACIC ROM ,POSTURAL EX'S ,STRENGTHENING AND GYM PROGRAM WITH ASSIST BY FAMILY - Subjective This 26 y/o female presents to physical therapy with mid back pain. Patient has mid back pain many years and ~ about 1week ago was c/o more pain. Seen DR Roy did x-rays -. Patient thought more postural related and weakness of core. Patient has been intermittent Today in general not c/o pain today. Mother states aggravating factors lifting ,bending slouching playing video games . Alleviating ibuprofen ,heat .Patient other bought new mattress. Patient normally doesn't sleep well. Denies paresthesia/tingling arms legs. Patient has not been very active throughout Covid . Bowel/bladder -. Coughing/sneezing -. Patient fell last week has h/o subluxing patella. Patient symptoms affects QOL. Patient goes to self reliance. Patient has diplegia CP ,MOD cognition delay. SOCIAL: lives with mother - Objective POSTURE: mild forward posture rounded shoulders ,slight scoliosis. PALPATION: tender thoracic paraspinals. NEURO: denies paresthesia/tingling. AROM: BUE WFL. MMT: grossly 4-/5,shoulders 3+/5. THORACIC ROM: flexion min loss ,extension mod severe pain at ER ,rotation min/mod loss. CERVICAL ROM: WFL all planes pf motion - Special Tests C/S Radiculapathy - Left Upper limb tension test: Negative C/S Radiculapathy - Right Upper limb tension test: Negative C/S Radiculapathy - Left Spurlings: Negative C/S Radiculapathy - Right Spurlings: Negative C/S Radiculapathy - Left Cervical distraction: Negative C/S Radiculapathy - Right Cervical distraction: Negative C/S Radiculapathy - Left Relief test: Negative - Balance/Special Test Scores Oswestry Low Back Score: 23 - Goals Goal 1:: Patient to be I with posture for ADLs for function. Goal Time Frame: 4-6 Weeks Goal 2:: Patient to demonstrate 40% to improve function Goal Time Frame: 4-6 Weeks Goal 3:: Patient to I with HEP and gym program Goal Time Frame: 4-6 Weeks Goal 4:: Patient to improve thoracic ROM for functional activities Goal Time Frame: 4-6 Weeks - Rehabilitation Potential Physical Therapy Diagnosis: This thoracic pain due to postural deficits with decrease posture and weakness thus benefit from skilled PT Rehabilitation Potential: Fair - Anticipated Interventions Patient/Client Instruction: Educate patient on: Condition, Plan of Care For the Purpose of:: To decrease pain, To increase ROM, To improve muscle performance and motor function, To improve ability to perform ADL's, To increase tolerance to activity/condition/position, To improve ability of physical actions for home/community/work/leisure, To improve health of tissue, To decrease soft tissue restriction, To increase flexibility/ROM, To improve tolerance to ADL's Therapeutic Exercise to Include: Strength training, Postural training, Flexibilty training, Active ROM, Dynamic Lumbar Stabilization For the Purpose of:: To decrease pain, To increase ROM, To improve muscle performance and motor function, To improve ability to perform ADL's, To increase tolerance to activity/condition/position, To improve ability of physical actions for home/community/work/leisure, To improve health of tissue, To decrease soft tissue restriction, To increase flexibility/ROM, To improve tolerance to ADL's Thank you for the opportunity to evaluate your patient. For Medicare and Medicare HMO plans, please review the plan of care and approve it. It will need to be FAXED BACK to us at [phone] for Medicare purposes. For Medicare only, by signing this I certify the plan of care. Please let me know if there are questions or concerns regarding this plan of care. Physician Signature: Date:
--- NOTE | 2021-12-22 16:15 | HP.PTDCSUM ---
It has been my pleasure to treat ROCHELLE TRINH referred by Dr. Mike Roy MD, with the diagnosis of MID BACK PAIN for a total of 3 visit(s). Discharge Date: 12/22/21 Please see the following information for a summary of their discharge status. Subjective: Doing good Objective/Function: MMT: 4/5. GAIT RECIPROCAL. LUMBAR ROM: WFL Goal 1:: Patient to be I with posture for ADLs for function. Goal Progress: Goal Met Goal 2:: Patient to demonstrate 40% to improve function Goal Progress: Goal Met Goal 3:: Patient to I with HEP and gym program Goal Progress: Goal Met Goal 4:: Patient to improve thoracic ROM for functional activities Goal Progress: Goal Met Goal Progress: Goal Met Plan: D/C TO GYM If there are questions or concerns regarding this patient's physical therapy, please feel free to call me at [phone]. Thank you for the referral of this patient. Sincerely, Adarsh Beckham, PT, Cert MDT, OCS Balance/Gait/Functional tests - Balance/Special Test Scores Oswestry Low Back Score: 0
== END 2021-12-22 19:00 | disposition home or self-care (01) ==
LOC: PT 15:30
PROVIDERS: PCP Family Medicine; Referring Provider Family Medicine; Visit Provider Family Medicine
DX: M54.9 Dorsalgia, unspecified (principal)
CPT/HCPCS: 97110; 97162

== ENCOUNTER → 2022-01-02 | Outpatient (CLI) | payer OTHER, MEDICARE, MEDICAID, SELFPAY ==
--- NOTE | 2022-01-02 16:31 | RAD_ITS ---
INDICATION: TOE INJURY EXAMINATION/TECHNIQUE: X-RAY - RIGHT FOOT XR Toes Min 2 Views 5 VIEWS COMPARISON: None. FINDINGS: Limited field of view isolating second through fourth toes. SOFT TISSUES: No soft tissue swelling or gas. No radiopaque foreign body. BONES/JOINTS: No acute fracture. Flexion deformity seen in the third through fifth toes, most notably involving the third toe at the proximal interphalangeal joint. Preservation of the joint space and no degenerative bony proliferative changes. No sclerotic or destructive changes observed. RAD/Toe(s) Min 2 Views IMPRESSION: Flexion deformities as above with no fracture, degenerative joint changes or abnormal soft tissue changes. Electronically Signed: Paco Jacinto DO at 20:14 EST ,
== END | disposition home or self-care (01) ==
LOC: MTRAD 16:30
PROVIDERS: PCP Family Medicine; Referring Provider Family Medicine; Visit Provider Family Medicine
DX: S99.921A Unspecified injury of right foot, initial encounter (principal)
CPT/HCPCS: 73660

== ENCOUNTER → 2022-02-15 | Outpatient (CLI) | payer OTHER, MEDICARE, MEDICAID, SELFPAY ==
[2022-02-15 17:42] LABS: Absolute Lymphocyte Count 3.14 X10^3/uL (0.83-4.51); Absolute Neutrophil Count 4.7 X10^3/uL (2.0-7.7); Basophil# 0.03 X10^3/uL; Basophil% 0.4 % (0-1); Eosinophil# 0.06 X10^3/uL; Eosinophils% 0.7 % (0-5); Lymphocyte # 3.14 X10^3/ul (0.83-4.51); Lymphocyte % 36.9 % (19-41); Mean Corp Hgb Conc 31.8 g/dL (32-36); Mean Corpuscular Hgb 28.2 pg (27.0-32.0); Mean Corpuscular Volume 88.5 fL (81-99); Mean Platelet Vol. 9.7 fl (6.2-12.0); Monocyte# 0.59 X10^3/uL; Monocyte% 6.9 % (0-10); NRBC Flagged by Analyzer 0 % (0-5); Neutrophil # 4.68 X10^3/uL (2.7-7.7); Neutrophil % 54.9 % (47-70); Platelet Count 505 K/mm3 (150-450); RBC Distribution Width CV 12.9 % (11.6-14.6); RBC Distribution Width SD 41.4 fl (35.1-43.9); Red Blood Count 4.97 M/mm3 (4.2-5.4); White Blood Count 8.5 K/mm3 (4.4-11.0)
[2022-02-15 17:47] LABS: D-Dimer Quantitative (DVT/PE) 0.34 FEU/ug/m (0.27-0.49)
[2022-02-15 18:18] LABS: ALB/GLOB Ratio 0.9 RATIO (0.9-2.4); AST(SGOT) 16 U/L (15-37); Alanine Aminotransfer ALT/SGPT 24 U/L (13-56); Albumin, Serum 3.7 g/dL (3.2-5.0); Alkaline Phosphatase 84 U/L (45-117); Anion Gap 8 (5-15); BUN 16 mg/dL (7-18); BUN/Creat Ratio 15.7 RATIO (10-20); Calcium,Total 9.6 mg/dL (8.5-10.1); Chloride 108 mmol/L (98-107); Creatinine, Serum 1.02 mg/dL (0.55-1.02); EST Glomerular Filtration Rate 70 mL/min (>60); Est Glom Filt Rate - Afr Amer 84 mL/min (>60); Globulin 3.9 g/dL (2.2-4.2); Glucose 101 mg/dL (74-106); Potassium 4.9 mmol/L (3.5-5.1); Protein, Total 7.6 g/dL (6.4-8.2); Sodium Level 141 mmol/L (136-145); Thyroid Stim Hormone (TSH) 2.33 uIU/mL (0.358-3.74)
== END | disposition home or self-care (01) ==
PROVIDERS: PCP Family Medicine; Referring Provider Family Medicine; Visit Provider Nurse Practitioner Family
DX: R00.0 Tachycardia, unspecified (principal)
CPT/HCPCS: 36415; 80053; 83735; 84443; 85025; 85379

== ENCOUNTER → 2022-02-19 | Outpatient (CLI) | payer OTHER, MEDICARE, MEDICAID, SELFPAY ==
--- NOTE | 2022-02-19 14:11 | RAD_ITS ---
STUDY: X-RAY CHEST REASON FOR EXAM: Female, 27 years old. TACHYCARDIA TECHNIQUE: PA and lateral views of the chest. COMPARISON: 10/03/2020 FINDINGS: The lungs are clear and expanded. There is no demonstrated pleural abnormality. Normal size heart. Normal mediastinum and antonio. Normal visualized pulmonary arteries. Normal visualized aortic arch and descending thoracic aorta. Normal visualized thoracic spine. Normal visualized ribs, clavicles, and shoulders. There is no demonstrated abnormality of the visualized soft tissue structures of the upper abdomen. RAD/Chest PA and Lateral IMPRESSION: Normal x-ray examination of the chest. Electronically Signed: Dima Thakur MD at 14:21 EST ,
== END | disposition home or self-care (01) ==
PROVIDERS: PCP Family Medicine; Referring Provider Family Medicine; Visit Provider Family Medicine
DX: R00.0 Tachycardia, unspecified (principal)
CPT/HCPCS: 71046

== ENCOUNTER → 2022-08-16 | Outpatient (CLI) | payer MEDICARE, MEDICAID, SELFPAY ==
[2022-08-16 18:13] LABS: Vitamin B12 563 pg/mL (211-911)
== END | disposition home or self-care (01) ==
PROVIDERS: PCP Family Medicine; Visit Provider Family Medicine
DX: E55.9 Vitamin D deficiency, unspecified (principal); E53.8 Deficiency of other specified B group vitamins
CPT/HCPCS: 36415; 82306; 82607

== ENCOUNTER 2023-04-09 15:09 | Outpatient (CLI) | payer MEDICARE, MEDICAID, SELFPAY ==
[2023-04-09 18:07] LABS: Absolute Lymphocyte Count 3.04 X10^3/uL (0.83-4.51); Absolute Neutrophil Count 7.3 X10^3/uL (2.0-7.7); Basophil# 0.06 X10^3/uL; Basophil% 0.5 % (0-1); Eosinophil# 0.11 X10^3/uL; Hemoglobin 14.3 g/dL (12.0-15.0); Lymphocyte # 3.04 X10^3/ul (0.83-4.51); Mean Corp Hgb Conc 31.1 g/dL (32-36); Mean Corpuscular Hgb 27.3 pg (27.0-32.0); Mean Corpuscular Volume 87.8 fL (81-99); Mean Platelet Vol. 10.3 fl (6.2-12.0); Monocyte# 0.75 X10^3/uL; Monocyte% 6.6 % (0-10); NRBC Flagged by Analyzer 0 % (0-5); Neutrophil # 7.29 X10^3/uL (2.7-7.7); Neutrophil % 64.6 % (47-70); Platelet Count 468 K/mm3 (150-450); RBC Distribution Width CV 13.1 % (11.6-14.6); RBC Distribution Width SD 41.7 fl (35.1-43.9); Red Blood Count 5.24 M/mm3 (4.2-5.4); White Blood Count 11.3 K/mm3 (4.4-11.0)
[2023-04-09 18:26] LABS: Vitamin B12 505 pg/mL (211-911); Vitamin D,25 Hydroxy 43.8 ng/mL
[2023-04-09 18:27] LABS: Erythrocyte Sedimentation Rate 35 mm/hr (0-30)
[2023-04-09 18:45] LABS: ALB/GLOB Ratio 0.8 RATIO (0.9-2.4); AST(SGOT) 16 U/L (15-37); Alanine Aminotransfer ALT/SGPT 24 U/L (13-56); Albumin, Serum 3.9 g/dL (3.2-5.0); Alkaline Phosphatase 95 U/L (45-117); Anion Gap 10 (5-15); BUN 14 mg/dL (7-18); BUN/Creat Ratio 13.7 RATIO (10-20); Chloride 108 mmol/L (98-107); Creatinine, Serum 1.02 mg/dL (0.55-1.02); EST Glomerular Filtration Rate 69 mL/min (>60); Est Glom Filt Rate - Afr Amer 83 mL/min (>60); Ferritin 26 ng/mL (8-252); Globulin 4.6 g/dL (2.2-4.2); Glucose 86 mg/dL (74-106); Iron 84 ug/dL (50-170); Potassium 3.5 mmol/L (3.5-5.1); Protein, Total 8.5 g/dL (6.4-8.2); Rheumatoid Factor < 10.0 IU/mL (<15); Sodium Level 139 mmol/L (136-145)
[2023-04-12 16:09] LABS: PROEL- A/G Ratio 1.1 (0.7-1.7); PROEL- Albumin 4.2 g/dL (2.9-4.4); PROEL- Alpha-1 Globulin 0.3 g/dL (0.0-0.4); PROEL- Alpha-2 Globulin 1.2 g/dL (0.4-1.0); PROEL- Beta Globulin 1.5 g/dL (0.7-1.3); PROEL- Gamma Globulin 0.9 g/dL (0.4-1.8); PROEL- Globulin, Total 3.9 g/dL (2.2-3.9); PROEL- TOTAL PROTEIN 8.1 g/dL (6.0-8.5); PROEL-M-Spike Not Observed g/dL (Not Observed)
[2023-04-15 12:08] LABS: ANTINUCLEAR ANTIBODIES DIRECT Negative (Negative)
== END 2023-04-09 23:59 | disposition home or self-care (01) ==
LOC: MTLAB 15:11
PROVIDERS: PCP Family Medicine; Referring Provider Family Medicine; Visit Provider Family Medicine
DX: R21 Rash and other nonspecific skin eruption (principal); R53.83 Other fatigue; R77.1 Abnormality of globulin
CPT/HCPCS: 36415; 80053; 82306; 82607; 82728; 83540; 84165; 85025; 85652; 86038; 86140; 86431

== ENCOUNTER → 2023-04-15 | Outpatient (CLI) | payer MEDICARE, MEDICAID, SELFPAY ==
--- NOTE | 2023-04-15 16:06 | RAD_ITS ---
STUDY: X-RAY - ABDOMEN/PELVIS REASON FOR EXAM: Female, 28 years old. SITZ day 3 TECHNIQUE: Single AP view of the abdomen / pelvis. COMPARISON: None. FINDINGS: 23 Sitzmarks markers are noted all but one of which are noted in the left colon. There is increased stool in the left: There is increased gas in the right colon. There is an unremarkable bowel gas pattern. The visualized liver, spleen and kidneys are grossly normal in size and morphology. Normal soft tissue structures. Normal visualized osseous structures. RAD/Abdomen Single View IMPRESSION: Increased stool in sits markers as above Electronically Signed: Guillermo Stockton MD at 17:08 EST ,
--- OUTSIDE RECORDS SUMMARY | 2023-04-15 19:36 | XMS RPT_ITS | CCD ---
Author Name Unknown Address [address] [place] [address] Organization [facility] Care Team Providers Care Pants Presser Name Role Phone Tamanna York Primary Care [facility] er VASQUEZ HOBSON Referring VASQUEZ Medina Primary Care UnavailLATONYA Dunaway Attending LATONYA Cruz Attending VASQUEZ Medina Primary Care Unavailabl e REFERRED, SELF Referring Unavailable JOSSELYN PUGH Attending Unavailable TAMANNA YORK Primary Care Liza vailable Allergies Allergy Classification Reported Allergen(s) Allergy Type Date of Onset Reaction(s) Facility (6 sources) Benzocaine; Translations: [BENZOCAINE] Drug Allergy 04-15-2017 [facility] Work Phone: (5 sources) cefTRIAXone; Translations: [CEFTRIAXONE SODIUM] Drug Allergy 04-11-2017 [facility] Work Phone: (1 source) Allantoin; Translations: [ALLANTOIN] Drug Allergy 03-31-2019 [facility] Repository (1 source) Benzalkonium; Translations: [BENZALKONIUM] Drug Allergy 03-31-2019 [facility] Repository (1 source) carbamide peroxide; Translations: [CARBAMIDE PEROXIDE] Drug Allergy 03-31-2019 [facility] Repository (1 source) cefTRIAXone; Translations: [CEFTRIAXONE] Drug Allergy [facility] Repository (1 source) Methylphenidate; Translations: [METHYLPHENIDATE HCL] Drug Allergy 07-18-2011 [facility] Repository (1 source) Zinc; Translations: [ZINC] Drug Allergy 03-31-2019 [facility] Repository Medications Completed/Discontinued Medications Medication Drug Class(es) Dates Sig (Normalized) Sig (Original) albuterol 0.83 mg/ml inhalation solution (8 sources) beta2-Adrenergic Agonist Start: 07-31-2019 albuterol (PROVENTIL) 2.5 mg /3 mL (0.083 %) nebulizer solution USE 3ML (2.5MG) BY NEBULIZER EVERY FOUR HOURS NEEDED FOR ASTHMA TREATMENT PLAN 0 07/31/2019 Active Problems Problem Classification Problem Date Documented Da te Episodic/Chronic Contraceptive and procreative management (2 sources) Patient encounter status; Translations: [Encounter for other general counseling and advice on contraception] Onset: 12-25-2022 12-25-2022 Episodic Developmental disorders (6 sources) Intellectual disability; Translations: [Unspecified intellectual disabilities] Onset: 11-01-2021 11-01-2021 Chronic Other female genital disorders (1 source) Suppression of menstruation; Translations: [Other specified conditions associated with female genital organs and menstrual cycle] 12-25-2022 Episodic Other female genital disorders (1 source) Other specified conditions associated with female genital organs and menstrual cycle; Translations: [Menstrual suppression] Onset: 12-25-2022 Episodic Results Test Name Value Interpretation Reference Range Facil ity Vital Signs Date Time Vital Sign Value Performing Clinician Faci lity 12-25-2022 15:33-0500 Body weight 52.16 kg Josselyn Pugh APRN.CNM Work Phone: [facility] 12-25-2022 15:33-0500 Diastolic blood pressure 66 mm[Hg] Josselyn Pugh APRN.CNM Work Phone: [facility] 12-25-2022 15:33-0500 Systolic blood pressure 100 mm[Hg] Josselyn Pugh APRN.CNM Work Phone: [facility] Encounters Encounter Date Encounter Type Care Provider Facility Start: 12-28-2022 Refill Josselyn Pugh APRN.CNM Work Phone: OB/Gynecology Plan of Treatment Date Care Activity Detail Author Start: 07-16-2027 Urine microalbumin profile DTaP,Tdap,Td Vaccine (8 - Td or Tdap) [facility] Start: 02-11-2022 DEPRESSION ASSESSMENT DEPRESSION ASS ESSMENT [facility] Start: 11-06-2021 COVID-19 VACCINE (5 - Booster for Moderna series) COVID-19 VACCINE (5 - Booster for Moderna series) [facility] Start: 10-12-2021 Influenza vaccination INFLUENZA (#1) [facility] Start: 02-11-2021 DEPRESSION ASSESSMENT DEPRESSION ASS ESSMENT [facility] Start: 01-09-2017 PAP TESTING PAP TESTING [facility] Start: 01-09-2015 Urine microalbumin profile DTAP,TDAP,TD (1 - Tdap) [facility] Start: 01-09-2014 HEPATITIS C SCREENING HEPATITIS C SC REENING [facility] Start: 01-09-2014 HIV SCREENING HIV SCREENING [facility] Start: 01-09-2010 PEDS TO ADULT TRANSI TION ANNUAL ASSESSMENT PEDS TO ADULT TRANSITION ANNUAL ASSESSMENT [facility] Start: 2008 PEDS TO ADULT TRANSI TION INITIAL DISCUSSION PEDS TO ADULT TRANSITION INITIAL DISCUSSION [facility] Start: 01-09-2007 HPV VACCINE (1 - 2-d ose series) HPV VACCINE (1 - 2-dose series) [facility] Start: 1996 HEPATITIS B (1 of 3 - 3-dose series) HEPATITIS B (1 of 3 - 3-dose series) [facility] NEXPLANON INSERTION NEXPLANON IN SERTION Procedures Routine control counseling Ordered: 12/25/2022 [facility] Work Phone: Payers Date Payer Category Payer Medicare [id number] 2021 Unknown [id number] 2018 Medicare MEDICARE MEDICAR E A AND B [id number] 2018-Present [phone] [address] [address] [place] [address] Medicare [id number] 2017 Medicaid MEDICAID [facility] MEDICAID [id number] 2017-Present [phone] [address] [place] [address] Medicaid [id number] 2017 Medicaid [id number] 1953 Unknown [id number] 1953 Unknown [id number] Medicare [id number] Unknown [id number] Social History Date Type Detail Facility Start: 11-01-2021 Tobacco smoking stat us NJIS Never smoked tobacco [facility] Start: 11-01-2021 Tobacco use and exposure Smoke less tobacco non-user [facility] Start: 11-01-2021 End: 12-25-2022 Alcohol intake Lifetime non-drinker (finding) [facility] Start: 10-02-2019 History SDOH Alcohol Frequency 1 [facility] Start: 1995 Sex Assigned At Not on file [facility] Start: 10-02-2019 End: 12-18-2022 History of Social function [facility] Work Phone: Start: 10-02-2019 End: 12-18-2022 Alcohol Use Disorder Identification Test - Consumption [AUDIT-C] [facility] Work Phone: How often to you hav e a drink containing alcohol? Never [facility] Work Phone: Average Number of Drinks Not on file [facility] Note 12-28-2022 Telephone Encounter - Azul Eaton RN - 12/28/2022 10:00 AM EST Note Date & Type Note Facility 12-28-2022 Miscellaneous Notes Formattin g of this note is different from the original. Patient's mother called and stated they decided not to proceed with with Nexplanon and want to stay on current OCP. She is going to try the 12 week cycle with it instead of 8 weeks like they have been. Requesting refill. No need to call her back. Requested Prescriptions Pending Prescriptions Disp Refills L-Norgest and E Estradiol-E Estrad (DAYSEE) 0.15 mg-30 mcg (84)/10 mcg (7) 91 tablet 3 Sig: Take 1 tablet by mouth once daily. Azul Eaton RN documented in this encounter [facility] Progress note 12-25-2022 Note Date & Type Note Facility 12-25-2022 Note HNO ID: [id number] Author: Josselyn Pugh APRN.BRYANT Service: ? Author Type: Drug Abuse Social Worker Type: Progress Notes Filed: 12/25/2022 4:34 PM Note Text: Tereza is a 27 year old who presents for an annual gynecologic exam. Presents today with mother. Menses: 8 weeks on, 5 days off of OCP for continuous cycle. Pain with menses. Obsessive over bleeding at times. Contraception: combined hormonal contraceptives. No warning signs. Gets headache with menses but not usually any other time. 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 [employer] History Comments: Sexual Activity: Never; No partner data on record; not asked Contraception: No contraception data on record PAST MEDICAL HISTORY Diagnosis Date Acne ADHD Bronchopulmonary dysplasia Chronic GERD Severe Gerd Irregular menses Mentally challenged Migraine Pulmonary hypertension (HCC) PAST SURGICAL HISTORY Procedure Laterality Date ENDOSCOPY UPPER-EGD/M24 With Biopsy EYE SURGERY HX Bilateral Age 5 F INSERTION/CHANGE TUBE GASTROSTOMY 1996 F REMOVAL GASTROSTOMY TUBE 07/22/2017 TONSILLECTOMY AND ADENOIDECTOMY Age 7 FAMILY HISTORY Problem Relation Age of Onset Breast Cancer Paternal Grandmother Diabetes Mother Type 2 Diabetes Maternal Grandmother Type 2 No Known Problems Father SOCIAL HISTORY Social History Tobacco Use Smoking status: Never Smokeless tobacco: Never Vaping Use Vaping Use: Never used Substance Use Topics Alcohol use: Never Drug use: Never REVIEW OF SYSTEMS Abdomen: No abdominal pain, nausea, vomiting, diarrhea, or constipation. No bloating, early satiety, indigestion, or increased flatulence. Bladder: No dysuria, gross hematuria, urinary frequency, urinary urgency, or incontinence. Breast: No breast lumps, nipple d/c, overlying skin changes, redness or skin retraction. Allergies and current medication updated:Yes EXAM: BP 100/66 Wt 115 lb (52.2kg) LMP 12/22/2022 GENERAL: pleasant, female in no apparent distress HEENT: Normocephalic, atraumatic, mucus membranes moist, and no lesions NECK: Supple and full range of motion DERMATOLOGY: Normal and without lesions BREAST: Deferred, patient declines CHEST: Clear to auscultation, Normal inspiratory effort, Regular rate and rhythm, and No murmurs, clicks, rubs or gallops ABDOMEN: soft, non-tender, and no masses PELVIC: deferred BIMANUAL: deferred RECTOVAGINAL: deferred. NEURO: alert and oriented x3,exam grossly non-focal EXTREMITIES: normal ASSESSMENT/PLAN: 1. Encounter for gynecological examination (general) (routine) with abnormal findings - ICD9: V72.31, ICD10: Z01.411 (primary diagnosis) - Completed pelvic and breast exam - Encouraged monthly BSE - Follow up for annual exam in one year. 2. control counseling - ICD9: V25.09, ICD10: Z30.09 - NEXPLANON INSERTION 3. Menstrual suppression - ICD9: 626.8, ICD10: N94.89 4. Intellectual disability - ICD9: 319, ICD10: F7 1) Health maintenance: Pap smear not completed due to patient's intellectual disability. Here with mother. Patient not able to tolerate pelvic exam. She declines at this time and will defer to future visit. Patient is currently not sexually active. 2) Contraception: Nexplanon. Contraceptive options reviewed and information provided. Discussed could try Nexplanon and see if this helps with oligo or amenorrhea but not a guarantee. Option for OR for IUD insertion and pap smear, declines at this time. Would like to proceed with Nexplanon placement. R/b/a and insertion discussed, handout given. 3) STD screening: Declined STD check. 4) Follow up one year or sooner as needed Josselyn Pugh APRN.CNM [facility] History of Present illness Narrative 12-25-2022 Josselyn Pugh APRN.CNM - 12/25/2022 3:26 PM EST Note Date & Type Note Facility 12-25-2022 History of Presen t illness Narrative Tereza is a 27 year old who presents for an annual gynecologic exam. Presents today with mother. Menses: 8 weeks on, 5 days off of OCP for continuous cycle. Pain with menses. Obsessive over bleeding at times. Contraception: combined hormonal contraceptives. No warning signs. Gets headache with menses but not usually any other time. 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 [employer] History Comments: Sexual Activity: Never; No partner data on record; not asked Contraception: No contraception data on record PAST MEDICAL HISTORY Diagnosis Date Acne ADHD Bronchopulmonary dysplasia Chronic GERD Severe Gerd Irregular menses Mentally challenged Migraine Pulmonary hypertension (HCC) PAST SURGICAL HISTORY Procedure Laterality Date ENDOSCOPY UPPER-EGD/M24 With Biopsy EYE SURGERY HX Bilateral Age 5 F INSERTION/CHANGE TUBE GASTROSTOMY 1996 F REMOVAL GASTROSTOMY TUBE 07/22/2017 TONSILLECTOMY & ADENOIDECTOMY <AGE 13 Age 7 FAMILY HISTORY Problem Relation Age of Onset Breast Cancer Paternal Grandmother Diabetes Mother Type 2 Diabetes Maternal Grandmother Type 2 No Known Problems Father SOCIAL HISTORY Social History Tobacco Use Smoking status: Never Smokeless tobacco: Never Vaping Use Vaping Use: Never used Substance Use Topics Alcohol use: Never Drug use: Never REVIEW OF SYSTEMS Abdomen: No abdominal pain, nausea, vomiting, diarrhea, or constipation. No bloating, early satiety, indigestion, or increased flatulence. Bladder: No dysuria, gross hematuria, urinary frequency, urinary urgency, or incontinence. Breast: No breast lumps, nipple d/c, overlying skin changes, redness or skin retraction. Allergies and current medication updated:Yes EXAM: BP 100/66 Wt 115 lb (52.2kg) LMP 12/22/2022 GENERAL: pleasant, female in no apparent distress HEENT: Normocephalic, atraumatic, mucus membranes moist, and no lesions NECK: Supple and full range of motion DERMATOLOGY: Normal and without lesions BREAST: Deferred, patient declines CHEST: Clear to auscultation, Normal inspiratory effort, Regular rate and rhythm, and No murmurs, clicks, rubs or gallops ABDOMEN: soft, non-tender, and no masses PELVIC: deferred BIMANUAL: deferred RECTOVAGINAL: deferred. NEURO: alert and oriented x3,exam grossly non-focal EXTREMITIES: normal ASSESSMENT/PLAN: 1. Encounter for gynecological examination (general) (routine) with abnormal findings - ICD9: V72.31, ICD10: Z01.411 (primary diagnosis) - Completed pelvic and breast exam - Encouraged monthly BSE - Follow up for annual exam in one year. 2. control counseling - ICD9: V25.09, ICD10: Z30.09 - NEXPLANON INSERTION 3. Menstrual suppression - ICD9: 626.8, ICD10: N94.89 4. Intellectual disability - ICD9: 319, ICD10: F7 1) Health maintenance: Pap smear not completed due to patient's intellectual disability. Here with mother. Patient not able to tolerate pelvic exam. She declines at this time and will defer to future visit. Patient is currently not sexually active. 2) Contraception: Nexplanon. Contraceptive options reviewed and information provided. Discussed could try Nexplanon and see if this helps with oligo or amenorrhea but not a guarantee. Option for OR for IUD insertion and pap smear, declines at this time. Would like to proceed with Nexplanon placement. R/b/a and insertion discussed, handout given. 3) STD screening: Declined STD check. 4) Follow up one year or sooner as needed Josselyn Pugh APRN.CNM documented in this encounter [facility] Note 03-09-2022 Telephone Encounter - Ila Fischer LPN - 03/09/2022 8:41 AM ESTTelephone Encounter - Ila Fischer LPN - 03/08/2022 3:09 PM EST Note Date & Type Note Facility 03-09-2022 Miscellaneous Notes Formattin g of this note might be different from the original. Received approval for medication. Pt notified and will check with pharmacy later today. Ila Fischer LPN' Form completed and faxed to pt's insurance. Will await further instructions from insurance. Ila Fischer LPN Paper PA completed and placed on providers desk for signature. Ila Fischer LPN Received notice from pt's insurance provider stating that her Rx for Daysee is no longer on the list of covered medications. I contacted pt's pharmacy carrier as there were no alternatives listed. PA form to be faxed to office to be completed. Ila Fischer LPN documented in this encounter [facility] Note 01-22-2022 Telephone Encounter - Adeola Browning RN - 01/22/2022 10:30 AM EST Note Date & Type Note Facility 01-22-2022 Miscellaneous Notes Formattin g of this note is different from the original. Requested Prescriptions Pending Prescriptions Disp Refills DAYSEE 0.15 mg-30 mcg (84)/10 mcg (7) [Pharmacy Med Name: Daysee 0.15-0.03 &0.0MG TABS] 91 tablet 3 Sig: TAKE 1 TABLET BY MOUTH DAILY Last annual exam: 11/01/21 Please approve the above prescription(s) to electronically send to pharmacy. Adeola Browning RN documented [facility] Date & Type Note Facility documented in this encounter [facility] Reason for referral (narrative) Outpatient Procedure (Routine) - Pending Review Note Date & Type Note Facility Referral ID Status Reason Start Date Expiration Date Visits Requested Visits Authorized [id number] Pending Review Auto-Generat ed Referral 3 12/25/2023 1 1 [facility] Summary Purpose Family History No Family History Records FoundNo Family History Records Found Advance Directives No Advanced Directives Records FoundNo Advanced Directives Records Found Additional Source Comments Source Comments (unrecognize d section and content) In the event this informatio n is protected by the Federal Confidentiality of Alcohol and Drug Abuse Patient Records regulations: The Federal rules restrict any use of the information to criminally investigate or prosecute any alcohol or drug abuse patient.[facility] the event this information is protected by the Federal Confidentiality of Alcohol and Drug Abuse Patient Records regulations: The Federal rules restrict any use of the information to criminally investigate or prosecute any alcohol or drug abuse patient.[facility] the event this information is protected by the Federal Confidentiality of Alcohol and Drug Abuse Patient Records regulations: The Federal rules restrict any use of the information to criminally investigate or prosecute any alcohol or drug abuse patient.[facility] the event this information is protected by the Federal Confidentiality of Alcohol and Drug Abuse Patient Records regulations: The Federal rules restrict any use of the information to criminally investigate or prosecute any alcohol or drug abuse patient.[facility] Reason for Visit (unrecogniz ed section and content) Reason Comments Medication Problem Reason Comments Yearly Exam Care Teams (unrecognized sec tion and content) Pants Presser Relationship Specialty Start Date End Date Tamanna York PCP - General Pediatrics 03/02/15 Pants Presser Relationship Specialty Start Date End Date Tamanna York PCP - General Pediatrics 03/02/15 Pants Presser Relationship Specialty Start Date End Date Tamanna York PCP - General Pediatrics 03/02/15 INFORMATION SOURCE (unrecogn ized section and content) DATE CREATED AUTHOR AUTHOR'S ORGANIZ ATION 12/31/2022 [facility] FOR RECORDS PERTAINING TO PATIENTS WHO ARE OR HAVE BEEN ENROLLED IN A CHEMICAL DEPENDENCY/SUBSTANCEABUSE PROGRAM, SOME INFORMATION MAY BE OMITTED. This clinical summary was aggregated from multiple sources. Caution should be exercised in using it in the provision of clinical care. This summary normalizes information from multiple sources, and as a consequence, information in this document may materially change the coding, format and clinical context of patient data. In addition, data may be omitted in some cases. CLINICAL DECISIONS SHOULD BE BASED ON THE PRIMARY CLINICAL RECORDS. [facility] [email or web address] [facility]. provides no warranty or guarantee of the accuracy or completeness of information in this document.
== END | disposition home or self-care (01) ==
LOC: RAD 15:48
PROVIDERS: PCP Family Medicine; Referring Provider Internal Medicine Gastroenterology; Visit Provider Internal Medicine Gastroenterology
DX: K58.1 Irritable bowel syndrome with constipation (principal)
CPT/HCPCS: 74018

== ENCOUNTER → 2023-04-17 | Outpatient (CLI) | payer MEDICARE, MEDICAID, SELFPAY ==
--- NOTE | 2023-04-17 14:25 | RAD_ITS ---
INDICATION: SITZ day 5 EXAMINATION/TECHNIQUE: X-RAY - XR Abdomen 1 View COMPARISON: Abdominal x-ray 04/15/2023. FINDINGS: 23 Sitzmarks markers noted, most of which are in the descending colon to rectum, more distal compared to the prior, with a single marker likely in the mid transverse colon. The bowel gas pattern is nonobstructive. Prominent segment of bowel in the right lower abdomen again noted which may be redundant sigmoid colon or transverse colon. Mild amount of stool decreased compared to prior. RAD/Abdomen Single View IMPRESSION: Sitz markers predominantly in the left colon to the rectum. Electronically Signed: Cari Tejeda MD at 8:10 EST ,
--- OUTSIDE RECORDS SUMMARY | 2023-04-17 19:18 | XMS RPT_ITS | CCD ---
Author Name Unknown Address [address] [place] [address] Organization [facility] Care Team Providers Care Research Tech Name Role Phone Tamanna York Primary Care [facility] er VASQUEZ HOBSON Referring VASQUEZ Medina Primary Care UnavailLATONYA Dunaway Attending LATONYA Cruz Attending VASQUEZ Medina Primary Care Unavailabl e REFERRED, SELF Referring Unavailable JOSSELYN PUGH Attending Unavailable TAMANNA YORK Primary Care Liza vailable Allergies Allergy Classification Reported Allergen(s) Allergy Type Date of Onset Reaction(s) Facility (6 sources) Benzocaine; Translations: [BENZOCAINE] Drug Allergy 04-15-2017 [facility] Work Phone: (5 sources) cefTRIAXone; Translations: [CEFTRIAXONE SODIUM] Drug Allergy 04-11-2017 [facility] Work Phone: (1 source) Allantoin; Translations: [ALLANTOIN] Drug Allergy 03-31-2019 [facility] Repository (1 source) Benzalkonium; Translations: [BENZALKONIUM] Drug Allergy 03-31-2019 [facility] Repository (1 source) carbamide peroxide; Translations: [CARBAMIDE PEROXIDE] Drug Allergy 03-31-2019 [facility] Repository (1 source) cefTRIAXone; Translations: [CEFTRIAXONE] Drug Allergy [facility] Repository (1 source) Methylphenidate; Translations: [METHYLPHENIDATE HCL] Drug Allergy 07-18-2011 [facility] Repository (1 source) Zinc; Translations: [ZINC] Drug Allergy 03-31-2019 [facility] Repository Medications Completed/Discontinued Medications Medication Drug Class(es) [...] lity 12-25-2022 15:33-0500 Body weight 52.16 kg Josselny Pugh APRN.CNM Work Phone: [facility] 12-25-2022 15:33-0500 Diastolic blood pressure 66 mm[Hg] Josselyn Pugh APRN.CNM Work Phone: [facility] 12-25-2022 15:33-0500 Systolic blood pressure 100 mm[Hg] Josselyn Pugh APRN.CNM Work Phone: [facility] Encounters Encounter Date Encounter Type Care Provider Facility Start: 12-28-2022 Refill Josselyn Pugh APRN.CNM Work Phone: OB/Gynecology Plan of Treatment Date Care Activity Detail Author Start: 07-16-2027 Urine microalbumin profile DTaP,Tdap,Td Vaccine (8 - Td or Tdap) [facility] Start: 02-11-2022 DEPRESSION ASSESSMENT DEPRESSION ASS ESSMENT [facility] Start: 11-06-2021 COVID-19 VACCINE (5 - Booster for Moderna series) COVID-19 VACCINE (5 - Booster for Moderna series) [facility] Start: 10-12-2021 Influenza vaccination INFLUENZA (#1) [facility] Start: 02-11-2021 DEPRESSION ASSESSMENT DEPRESSION ASS ESSMENT [facility] Start: 01-09-2017 PAP TESTING PAP TESTING [facility] Start: 01-09-2015 Urine microalbumin profile DTAP,TDAP,TD (1 - Tdap) [facility] Start: 01-09-2014 HEPATITIS C SCREENING HEPATITIS C SC REENING [facility] Start: 01-09-2014 HIV SCREENING HIV SCREENING [facility] Start: 01-09-2010 PEDS TO ADULT TRANSI TION ANNUAL ASSESSMENT PEDS TO ADULT TRANSITION ANNUAL ASSESSMENT [facility] Start: 2008 PEDS TO ADULT TRANSI TION INITIAL DISCUSSION PEDS TO ADULT TRANSITION INITIAL DISCUSSION [facility] Start: 01-09-2007 HPV VACCINE (1 - 2-d ose series) HPV VACCINE (1 - 2-dose series) [facility] Start: 1996 HEPATITIS B (1 of 3 - 3-dose series) HEPATITIS B (1 of 3 - 3-dose series) [facility] NEXPLANON INSERTION NEXPLANON IN SERTION Procedures Routine control counseling Ordered: 12/25/2022 [facility] Work Phone: Payers Date Payer Category Payer Medicare [id number] 2021 Unknown [id number] 2018 Medicare MEDICARE MEDICAR E A AND B [id number] 2018-Present [phone] [address] [address] [place] [address] Medicare [id number] 2017 Medicaid MEDICAID [facility] MEDICAID [id number] 2017-Present [phone] [address] [place] [address] Medicaid [id number] 2017 Medicaid [id number] 1954 Unknown [id number] 1953 Unknown [id number] Medicare [id number] Unknown [id number] Social History Date Type Detail Facility Start: 11-01-2021 Tobacco smoking stat us TNIS Never smoked tobacco [facility] Start: 11-01-2021 Tobacco use and exposure Smoke less tobacco non-user [facility] Start: 11-01-2021 End: 12-25-2022 Alcohol intake Lifetime non-drinker (finding) [facility] Start: 10-02-2019 History SDOH Alcohol Frequency 1 [facility] Start: 1995 Sex Assigned At Not on file [facility] Start: 10-02-2019 End: 12-18-2022 History of Social function [facility] Work Phone: Start: 10-02-2019 End: 12-18-2022 Alcohol Use Disorder Identification Test - Consumption [AUDIT-C] [facility] Work Phone: How often to you hav e a drink containing alcohol? Never [facility] Work Phone: Average Number of Drinks Not on file [facility] Note 12-28-2022 Telephone Encounter - Azul [...] Azul Eaton RN documented in this encounter [facility] Progress note 12-25-2022 Note Date & Type Note Facility 12-25-2022 Note HNO ID: [id number] Author: Josselyn Pugh APRN.BRYANT Service: ? Author Type: Head Of Business Development Type: Progress Notes Filed: 12/25/2022 4:34 PM [...] IAB0 Ectopic0 Multiple0 Live Births0 Director Of Kids History LMP: 12/22/2022 (Exact Date), Having periods Age at Menarche: Age at First : Age at Menopause: Director Of Kids History Comments: Sexual Activity: Never; No partner [...] or sooner as needed Josselyn Pugh APRN.CNM [facility] History of Present illness Narrative 12-25-2022 [...] IAB0 Ectopic0 Multiple0 Live Births0 Director Of Kids History LMP: 12/22/2022 (Exact Date), Having periods Age at Menarche: Age at First : Age at Menopause: Director Of Kids History Comments: Sexual Activity: Never; No partner [...] Josselyn Pugh APRN.CNM documented in this encounter [facility] Note 03-09-2022 Telephone Encounter - Ila [...] Ila Fischer LPN documented in this encounter [facility] Note 01-22-2022 Telephone Encounter - Adeola [...] Adeola Browning RN [facility] Note Date & Type Note Facility documented in this encounter [facility] Reason for referral (narrative) Outpatient Procedure (Routine) - Pending Review Note Date & Type Note Facility Referral ID Status Reason Start Date Expiration Date Visits Requested Visits Authorized [id number] Pending Review Auto-Generat ed Referral 3 12/25/2023 1 1 [facility] Summary Purpose Family History No Family [...] or prosecute any alcohol or drug abuse patient.[facility] the event this information is protected by the Federal Confidentiality of Alcohol and Drug Abuse Patient Records regulations: The Federal rules restrict any use of the information to criminally investigate or prosecute any alcohol or drug abuse patient.[facility] the event this information is protected by the Federal Confidentiality of Alcohol and Drug Abuse Patient Records regulations: The Federal rules restrict any use of the information to criminally investigate or prosecute any alcohol or drug abuse patient.[facility] the event this information is protected by the Federal Confidentiality of Alcohol and Drug Abuse Patient Records regulations: The Federal rules restrict any use of the information to criminally investigate or prosecute any alcohol or drug abuse patient.[facility] Reason for Visit (unrecogniz ed section and content) Reason Comments Medication Problem Reason Comments Yearly Exam Care Teams (unrecognized sec tion and content) Research Tech Relationship Specialty Start Date End Date Tamanna York PCP - General Pediatrics 03/02/15 Research Tech Relationship Specialty Start Date End Date Tamanna York PCP - General Pediatrics 03/02/15 Research Tech Relationship Specialty Start Date End Date Tamanna York PCP - General Pediatrics 03/02/15 INFORMATION SOURCE (unrecogn ized section and content) DATE CREATED AUTHOR AUTHOR'S ORGANIZ ATION 12/31/2022 [facility] FOR RECORDS PERTAINING TO PATIENTS WHO [...] BE BASED ON THE PRIMARY CLINICAL RECORDS. [facility]. provides no warranty or guarantee of the accuracy or completeness of information in this document.
== END | disposition home or self-care (01) ==
LOC: RAD 14:17
PROVIDERS: PCP Family Medicine; Referring Provider Internal Medicine Gastroenterology; Visit Provider Internal Medicine Gastroenterology
DX: K59.00 Constipation, unspecified (principal)
CPT/HCPCS: 74018

== ENCOUNTER → 2023-04-23 | Outpatient (CLI) | payer MEDICARE, MEDICAID, SELFPAY ==
--- NOTE | 2023-04-23 11:36 | NM_ITS ---
CLINICAL: 28-year-old female with history of clinical gastroparesis. SEMI-SOLID PHASE 99m Tc SULFUR COLLOID GASTRIC EMPTYING STUDY COMPARISON: None available FINDINGS: The patient was administered 1.1 mCi of 99m Tc sulfur colloid mixed with oatmeal and consumed per os. Image acquisitions in the anterior -posterior projections were obtained for 60 minutes. There is prompt visualization of the stomach. There is no gastroesophageal reflux identified. First order kinetics are maintained throughout the duration of the acquisitions. The T ? linear fit was calculated to be 172.32 minutes, (Normal: 12-56 minutes). NM/Gastric Emptying Study IMPRESSION: 1. ABNORMAL 99m Tc sulfur colloid semi-solid phase (oatmeal) gastric emptying imaging examination. A. There is delayed semi-solid phase gastric emptying compared to normal controls with maintained first order kinetics throughout all components of the examination. (Edin et al, J Nucl Med Tech 38: 186, 2010). Electronically Signed: Keon Bryant DO at 8:57 EDT ,
--- OUTSIDE RECORDS SUMMARY | 2023-04-24 00:37 | XMS RPT_ITS | CCD ---
Author Name Unknown Address [address] [place] [address] Organization [facility] Care Team Providers Care Slot Supervisor Name Role Phone Tamanna York Primary Care [facility] er VASQUEZ HOBSON Referring VASQUEZ Medina Primary Care UnavailLATONYA Dunaway Attending LATONYA Cruz Attending VASQUEZ Medina Primary Care Unavailabl e REFERRED, SELF Referring Unavailable JOSSELYN PUGH Attending Unavailable TAMANNA YORK Primary Care Liza vailable Allergies Allergy Classification Reported Allergen(s) Allergy Type Date of Onset Reaction(s) Facility (6 sources) Benzocaine; Translations: [BENZOCAINE] Drug Allergy 04-15-2017 [facility] Work Phone: (5 sources) cefTRIAXone; Translations: [CEFTRIAXONE SODIUM] Drug Allergy 04-11-2017 [facility] Work Phone: (1 source) Allantoin; Translations: [ALLANTOIN] Drug Allergy 03-31-2019 [facility] Repository (1 source) Benzalkonium; Translations: [BENZALKONIUM] Drug Allergy 03-31-2019 [facility] Repository (1 source) carbamide peroxide; Translations: [CARBAMIDE PEROXIDE] Drug Allergy 03-31-2019 [facility] Repository (1 source) cefTRIAXone; Translations: [CEFTRIAXONE] Drug Allergy [facility] Repository (1 source) Methylphenidate; Translations: [METHYLPHENIDATE HCL] Drug Allergy 07-18-2011 [facility] Repository (1 source) Zinc; Translations: [ZINC] Drug Allergy 03-31-2019 [facility] Repository Medications Completed/Discontinued Medications Medication Drug Class(es) [...] 52.16 kg Josselyn Pugh APRN.CNM Work Phone: [facility] 12-25-2022 15:33-0500 Diastolic blood pressure 66 mm[Hg] Josselyn Pugh APRN.CNM Work Phone: [facility] 12-25-2022 15:33-0500 Systolic blood pressure 100 mm[Hg] Josselyn Pugh APRN.CNM Work Phone: [facility] Encounters Encounter Date Encounter Type Care Provider Facility Start: 12-28-2022 Refill Josselyn Pugh APRN.CNM Work Phone: OB/Gynecology Plan of Treatment Date Care Activity Detail Author Start: 07-16-2027 Urine microalbumin profile DTaP,Tdap,Td Vaccine (8 - Td or Tdap) [facility] Start: 02-11-2022 DEPRESSION ASSESSMENT DEPRESSION ASS ESSMENT [facility] Start: 11-06-2021 COVID-19 VACCINE (5 - Booster for Moderna series) COVID-19 VACCINE (5 - Booster for Moderna series) [facility] Start: 10-12-2021 Influenza vaccination INFLUENZA (#1) [facility] Start: 02-11-2021 DEPRESSION ASSESSMENT DEPRESSION ASS ESSMENT [facility] Start: 01-09-2017 PAP TESTING PAP TESTING [facility] Start: 01-09-2015 Urine microalbumin profile DTAP,TDAP,TD (1 - Tdap) [facility] Start: 01-09-2014 HEPATITIS C SCREENING HEPATITIS C SC REENING [facility] Start: 01-09-2014 HIV SCREENING HIV SCREENING [facility] Start: 01-09-2010 PEDS TO ADULT TRANSI TION ANNUAL ASSESSMENT PEDS TO ADULT TRANSITION ANNUAL ASSESSMENT [facility] Start: 2008 PEDS TO ADULT TRANSI TION INITIAL DISCUSSION PEDS TO ADULT TRANSITION INITIAL DISCUSSION [facility] Start: 01-09-2007 HPV VACCINE (1 - 2-d ose series) HPV VACCINE (1 - 2-dose series) [facility] Start: 1996 HEPATITIS B (1 of 3 - 3-dose series) HEPATITIS B (1 of 3 - 3-dose series) [facility] NEXPLANON INSERTION NEXPLANON IN SERTION Procedures Routine control counseling Ordered: 12/25/2022 [facility] Work Phone: Payers Date Payer Category Payer Medicare [id number] 2021 Unknown [id number] 2018 Medicare MEDICARE MEDICAR E A AND B [id number] 2018-Present [phone] [address] [address] [place] [address] Medicare [id number] [facility] MEDICAID [id number] 2017-Present [phone] [address] [place] [address] Medicaid [id number] 2017 Medicaid [id number] 1953 Unknown [id number] 1954 Unknown [id number] Medicare [id number] Unknown [id number] Social History Date Type Detail Facility Start: 11-01-2021 Tobacco smoking stat us MIIS Never smoked tobacco [facility] Start: 11-01-2021 Tobacco use and exposure Smoke less tobacco non-user [facility] Start: 11-01-2021 End: 12-25-2022 Alcohol intake Lifetime non-drinker (finding) [facility] Start: 10-02-2019 History SDOH Alcohol Frequency 1 [facility] Start: 1995 Sex Assigned At Not on file [facility] Start: 10-02-2019 End: 12-18-2022 History of Social function [facility] Work Phone: Start: 10-02-2019 End: 12-18-2022 Alcohol Use Disorder Identification Test - Consumption [AUDIT-C] [facility] Work Phone: How often to you hav e a drink containing alcohol? Never [facility] Work Phone: Average Number of Drinks Not on file [facility] Note 12-28-2022 Telephone Encounter - Azul [...] Azul Eaton RN documented in this encounter [facility] Progress note 12-25-2022 Note Date & Type Note Facility 12-25-2022 Note HNO ID: [id number] Author: Josselyn Pugh APRN.BRYANT Service: ? Author Type: Strategy Planning Consultant Type: Progress Notes Filed: 12/25/2022 4:34 PM [...] L0 SAB0 IAB0 Ectopic0 Multiple0 Live Births0 Transactional Paralegal History LMP: 12/22/2022 (Exact Date), Having periods Age at Menarche: Age at First : Age at Menopause: Transactional Paralegal History Comments: Sexual Activity: Never; No partner [...] or sooner as needed Josselyn Pugh APRN.CNM [facility] History of Present illness Narrative 12-25-2022 Josselyn [...] L0 SAB0 IAB0 Ectopic0 Multiple0 Live Births0 Transactional Paralegal History LMP: 12/22/2022 (Exact Date), Having periods Age at Menarche: Age at First : Age at Menopause: Transactional Paralegal History Comments: Sexual Activity: Never; No partner [...] Josselyn Pugh APRN.CNM documented in this encounter [facility] Note 03-09-2022 Telephone Encounter - Ila [...] Ila Fischer LPN documented in this encounter [facility] Note 01-22-2022 Telephone Encounter - Adeola [...] Adeola Browning RN [facility] Note Date & Type Note Facility documented in this encounter [facility] Reason for referral (narrative) Outpatient Procedure (Routine) - Pending Review Note Date & Type Note Facility Referral ID Status Reason Start Date Expiration Date Visits Requested Visits Authorized [id number] Pending Review Auto-Generat ed Referral 3 12/25/2023 1 1 [facility] Summary Purpose Family History No Family [...] or prosecute any alcohol or drug abuse patient.[facility] the event this information is protected by the Federal Confidentiality of Alcohol and Drug Abuse Patient Records regulations: The Federal rules restrict any use of the information to criminally investigate or prosecute any alcohol or drug abuse patient.[facility] the event this information is protected by the Federal Confidentiality of Alcohol and Drug Abuse Patient Records regulations: The Federal rules restrict any use of the information to criminally investigate or prosecute any alcohol or drug abuse patient.[facility] the event this information is protected by the Federal Confidentiality of Alcohol and Drug Abuse Patient Records regulations: The Federal rules restrict any use of the information to criminally investigate or prosecute any alcohol or drug abuse patient.[facility] Reason for Visit (unrecogniz ed section and content) Reason Comments Medication Problem Reason Comments Yearly Exam Care Teams (unrecognized sec tion and content) Slot Supervisor Relationship Specialty Start Date End Date Tamanna York PCP - General Pediatrics 03/02/15 Slot Supervisor Relationship Specialty Start Date End Date Tamanna York PCP - General Pediatrics 03/02/15 Slot Supervisor Relationship Specialty Start Date End Date Tamanna York PCP - General Pediatrics 03/02/15 INFORMATION SOURCE (unrecogn ized section and content) DATE CREATED AUTHOR AUTHOR'S ORGANIZ ATION 12/31/2022 [facility] FOR RECORDS PERTAINING TO PATIENTS WHO ARE [...] BE BASED ON THE PRIMARY CLINICAL RECORDS. [facility]. provides no warranty or guarantee of the accuracy or completeness of information in this document.
== END | disposition home or self-care (01) ==
LOC: NM 11:36
PROVIDERS: PCP Family Medicine; Referring Provider Internal Medicine Gastroenterology; Visit Provider Internal Medicine Gastroenterology
DX: K59.00 Constipation, unspecified (principal)
CPT/HCPCS: 78264; A9541

== ENCOUNTER → 2023-05-14 | Outpatient (CLI) | payer MEDICARE, MEDICAID, SELFPAY ==
--- NOTE | 2023-05-14 09:26 | NM_ITS ---
CLINICAL: 28-year-old female with history of clinical gastroparesis. SOLID PHASE 99m Tc SULFUR COLLOID GASTRIC EMPTYING STUDY COMPARISON: Semisolid gastric emptying examination dated 04/23/2023 FINDINGS: The patient was administered 1.2 mCi of 99m Tc sulfur colloid mixed with egg and consumed per os. Image acquisitions in the anterior-posterior projections were obtained for 238 minutes following meal consumption. There is prompt visualization of the stomach. There is no gastroesophageal reflux identified. First order kinetics are maintained throughout the duration of the acquisitions. The T ? linear fit was calculated to be 108.69 minutes, (Normal 65-110 minutes). 92 % emptying and 8.0 % retention are defined at 4 hours post meal ingestion. NM/Gastric Emptying Study - 4 HR IMPRESSION: 1. NORMAL 99m Tc sulfur colloid solid phase gastric emptying imaging examination. A. There is normal solid phase gastric emptying compared to normal controls with maintained first order kinetics throughout all components of the examination. (Nii et al, Gastroenterology 77: 75, 1979 Candace et al, Semin Nucl Med 12: 116, 1981 Good et al, SNM Procedure Guidelines Adult Solid Meal Gastric Emptying Study 3.0 [email or web address]). B. Less than 10% retention of the initial gastric contents at 4 hours post dose is consistent with normal solid phase gastric emptying which correlates with the results of the T ? emptying calculation. (Ana et al, J Nucl Med 48: 568, 2007). C. Compared to the semisolid phase emptying study dated 04/23/2023, there is current normal solid phase gastric emptying as defined above. Electronically Signed: Keon Bryant DO at 22:57 EDT ,
== END | disposition home or self-care (01) ==
LOC: NM 09:24
PROVIDERS: PCP Family Medicine; Referring Provider Internal Medicine Gastroenterology; Visit Provider Internal Medicine Gastroenterology
DX: K31.84 Gastroparesis (principal)
CPT/HCPCS: 78264; A9541

== ENCOUNTER → 2024-04-14 | Outpatient (CLI) | payer MEDICARE, MEDICAID, SELFPAY ==
[2024-04-14 14:53] LABS: Erythrocyte Sedimentation Rate 7 mm/hr (0-30)
[2024-04-14 19:26] LABS: ALB/GLOB Ratio 1.2 RATIO (0.9-2.4); AST(SGOT) 19 U/L (<=31); Alanine Aminotransfer ALT/SGPT 23 U/L (<=34); Albumin, Serum 4.3 g/dL (3.5-5.0); Alkaline Phosphatase 106 U/L (35-104); Anion Gap 15 (5-15); BUN 12 mg/dL (4-19); BUN/Creat Ratio 12.9 RATIO (10-20); Calcium,Total 10.3 mg/dL (7.6-11.0); Carbon Dioxide 22.5 mmol/L (21.0-32.0); Chloride 102 mmol/L (98-108); Creatinine, Serum 0.93 mg/dL (0.70-1.20); EST Glomerular Filtration Rate 86 (>60); Globulin 3.7 g/dL (2.2-4.2); Glucose 110 mg/dL (70-99); Potassium 5.5 mmol/L (3.3-5.1); Sodium Level 139 mmol/L (133-145); Total Bilirubin 0.62 mg/dL (0.00-1.30)
[2024-04-14 21:36] LABS: Amylase 70 U/L (28-100); Lipase 35 U/L (13-75)
== END | disposition home or self-care (01) ==
LOC: LAB 14:13
PROVIDERS: PCP Family Medicine; Referring Provider Internal Medicine Gastroenterology; Visit Provider Internal Medicine Gastroenterology
DX: R10.11 Right upper quadrant pain (principal)
CPT/HCPCS: 36415; 80053; 82150; 83690; 85652; 86140

== ENCOUNTER → 2024-04-23 | Outpatient (CLI) | payer MEDICARE, MEDICAID, SELFPAY ==
--- NOTE | 2024-04-23 07:47 | US_ITS ---
PROCEDURE: ABDOMEN LIMITED REASON FOR EXAM: RUQ PAIN COMPARISON: None FINDINGS: Liver: Diffusely echogenic suggesting fatty infiltration. Gallbladder: No stones, sludge, wall thickening or tenderness. Common bile duct: Normal measuring 3.6 cm Pancreas: Visualized portions are sonographically unremarkable. Visualized portions of the right kidney are unremarkable. No right upper quadrant ascites. US/Abdomen Limited IMPRESSION: Features suggesting hepatic steatosis. No gallstones or biliary duct dilatatio n Reading Location: [id number]
== END | disposition home or self-care (01) ==
LOC: US 07:46
PROVIDERS: PCP Family Medicine; Referring Provider Internal Medicine Gastroenterology; Visit Provider Internal Medicine Gastroenterology
DX: R10.11 Right upper quadrant pain (principal)
CPT/HCPCS: 76705

== ENCOUNTER → 2024-05-20 | Outpatient (CLI) | payer MEDICARE, MEDICAID, SELFPAY ==
--- NOTE | 2024-05-20 11:45 | NM_ITS ---
PROCEDURE: HEPATOBILLIARY IMG W/PHARM INT 05/20/2024 REASON FOR EXAM: RUQ PAIN TECHNIQUE: Planar imaging of the abdomen was performed. 10 mcg Kinevac intravenously approximately 60 minutes after the radiopharmaceutical with additional anterior imaging and a region of interest drawn around the gallbladder to calculate a time-activity curve. RADIOPHARMACEUTICAL: 5.7 mCi of 99m Technetium Mebrofenin intravenously COMPARISON: Ultrasound abdomen limited dated 04/23/2024. FINDINGS: Prompt uptake of the radiopharmaceutical by the hepatocytes. Rapid appearance of activity in the small bowel.. Normal gallbladder visualization with the gallbladder identified within 30 minutes. Gallbladder Ejection Fraction: 46 % (Normal is >35%) NM/Hepatobilliary Img w/Pharm Int IMPRESSION: Gallbladder ejection fraction is 46% at 27 minutes post stimulation. Reading Location: [place] [id number]
== END | disposition home or self-care (01) ==
LOC: NM 11:45
PROVIDERS: PCP Family Medicine; Referring Provider Internal Medicine Gastroenterology; Visit Provider Internal Medicine Gastroenterology
DX: R10.11 Right upper quadrant pain (principal)
CPT/HCPCS: 78227; A9537; J2805

== ENCOUNTER 2024-06-30 12:57 | Emergency (ER) | payer MEDICARE, MEDICAID, SELFPAY ==
[2024-06-30 12:58] VITALS: BP 136/73; PULSE 98; RESP 16; TEMP 36.4; O2SAT 95; BMI 22.6
--- NOTE | 2024-06-30 13:31 | EKG12_ITS ---
Test Reason : CP Blood Pressure : */* mmHG Vent. Rate : 94 BPM Atrial Rate : 94 BPM P-R Int : 132 ms QRS Dur : 66 ms QT Int : 338 ms P-R-T Axes : 58 81 12 degrees QTcB Int : 422 ms Normal sinus rhythm Nonspecific T wave abnormality Abnormal ECG Confirmed by CANDIS BECKER, SHEKHAR ([id number]), editor magazine CASSIE BARBOZA ([id number]) on 07/01/2024 10:35:00 AM Referred By: KALEIGH/MAYANK Confirmed By: SHEKHAR CHIRINOS MD
--- NOTE | 2024-06-30 14:10 | ED.VIS.CHEST ---
HPI History of Present Illness Chief Complaint: Chest Pain Informant: patient and parent Narrative Narrative: Patient is a 29-year-old female with history of GERD, cerebral palsy, cognitive developmental delay and remote history of PEG tube as well as Elizabeth fundoplication presenting with chest pain. She states she woke up with it this morning. It is in the center of her chest. Worse with movement and deep breathing. Feels mildly short of breath with it. Denies use one of her legs. Has some mild nausea but no vomiting. Took ibuprofen at 1230 this morning with some help with the pain. Denies any history of DVT or PE. Is on control. Denies any swelling of her legs. Was with her father no she has had pain like this before but they have never been able to figure out what the cause of it. Did eat lunch and does not report any change or symptoms with eating. No other complaints or concerns reported at this time. Chart review shows the patient has a HIDA scan on which showed gallbladder ejection fraction 46% at 27 minutes post stimulation. PFSH PFS Medical History Constipation GERD (gastroesophageal reflux disease) Cerebral palsy Cognitive developmental delay g tube removal g tube thalfundoplication Asthma Headache Seasonal allergies SOB (shortness of breath) Lung disease Home Medications ?Medication ?Instructions ?Recorded ?Last Taken ?Type L norgest/E estradiol-E estrad 1 ea PO DAILY 03/22/16 06/30/24 History 0.15 mg-30 mcg (84)/10 mcg(7) tabs,3mos albuterol sulfate 90 mcg/actuation 1 - 2 puff inhalation Q6H PRN Sob 03/22/16 Unknown History aerosol inhaler &/Or Wheezing cetirizine 10 mg tablet 10 mg PO DAILY 03/22/16 06/30/24 History fluticasone propionate 110 1 puff inhalation BID 03/22/16 06/30/24 History mcg/actuation HFA aerosol inhaler fluticasone propionate 50 1 spray NASAL BID 03/22/16 06/30/24 History mcg/actuation nasal spray,suspension ibuprofen 200 mg tablet 200 mg PO Q6H PRN Fever 03/22/16 Unknown History sumatriptan 20 mg/actuation nasal 20 mg NS DAILY PRN MIGRAINES 03/22/16 Unknown History spray amitriptyline 25 mg tablet 25 mg PO QHS 04/04/22 06/29/24 History cyanocobalamin (vitamin B-12) 1,000 mcg PO DAILY 04/04/22 06/30/24 History 1,000 mcg tablet,extended release ivermectin 1 % topical cream 1 applic topical DAILY PRN FACE 04/04/22 Unknown History ketoconazole 2 % shampoo 1 applic topical DAILY PRN SCALP 04/04/22 Unknown History IRRITATION ketoconazole 2 % topical cream 1 applic topical DAILY PRN skin 04/04/22 Unknown History irritation metronidazole 0.75 % topical cream 1 applic topical DAILY PRN skin 04/04/22 Unknown History irritation linaclotide 145 mcg capsule 145 mcg PO BID #60 caps 04/14/24 06/30/24 Rx (Linzess) Lactobacillus rhamnosus GG 10 1 cap PO DAILY 06/30/24 06/30/24 History billion cell capsule (Culturelle) cholecalciferol (vitamin D3) 50 50 mcg PO DAILY 06/30/24 06/30/24 History mcg (2,000 unit) tablet (D3 DOTS) methylphenidate HCl 30 mg biphasic 30 mg PO DAILY 06/30/24 06/30/24 History 30-70 capsule,extended release sennosides 15 mg tablet (Laxative 15 mg PO DAILY 06/30/24 06/30/24 History (sennosides)) Allergy/AdvReac Type Severity Reaction Status Date / Time allantoin (From Orajel) Allergy Swelling Verified 06/30/24 12:58 benzalkonium chloride (From Allergy Swelling Verified 06/30/24 12:58 Orajel) benzocaine (From Orajel) Allergy Swelling Verified 06/30/24 12:58 carbamide peroxide (From Allergy Swelling Verified 06/30/24 12:58 Orajel) ceftriaxone (From Rocephin) Allergy Rash Verified 06/30/24 12:58 zinc chloride (From Orajel) Allergy Swelling Verified 06/30/24 12:58 methylphenidate (From AdvReac Unknown Verified 06/30/24 12:58 Ritalin) Family History Mother Asthma Hypertension CAD (coronary artery disease) Myocardial infarction A-fib Surgical History H/O eye surgery Hx of tonsillectomy Social History Smoking Status: Unknown if ever smoked alcohol intake: never ROS ROS ED Constitutional Constitutional ED: Denies chills or fever(s) ENT ENT ED: Denies sore throat Cardiovascular Cardiovascular: Reports as per HPI and chest pain Respiratory/Chest Respiratory/Chest: Reports dyspnea; Denies cough or sputum Gastrointestinal Gastrointestinal: Denies abdominal pain, nausea or vomiting Musculoskeletal Musculoskeletal: Denies arthralgias or myalgias Integumentary Denies rash Neurologic Neurologic: Denies weakness Psychiatric Psychiatric: Reports anxiety Hematologic/Lymphatic Hematologic/Lymphatic: Denies easy bleeding or easy bruising EXAM Physical Exam Const Vital Signs: 06/30/24 12:58 06/30/24 14:15 06/30/24 14:35 Temperature 97.6 F L Temperature Source Temporal Pulse Rate 98 74 Respiratory Rate 16 14 Respiratory Effort Blood Pressure 136/73 H 97/82 H Blood Pressure Mean 94 87 Pulse Ox 95 97 Oxygen Delivery Method Room Air Room Air Room Air 06/30/24 14:36 06/30/24 15:00 Temperature Temperature Source Pulse Rate 72 Respiratory Rate 14 Respiratory Effort Normal Non-Labored Blood Pressure 104/83 H Blood Pressure Mean 90 Pulse Ox 97 Oxygen Delivery Method Room Air Positive well nourished and well developed General Appearance ED: well developed and NAD HEENT Reports moist mucous membranes Eyes PERRL Neck supple and no JVD Chest Wall inspection of chest normal Chest Narrative: Significant tenderness palpation along the sternum. No chest wall crepitus present. No overlying rash or skin changes. Resp normal respiratory effort and clear to auscultation bilaterally Cardio regular rate, regular rhythm and no murmurs GI normal to inspection, nondistended, normoactive bowel sounds, soft to palpation and non-tender GI Narrative: Specifically no pain in the right upper quadrant. Extremity normal to inspection Neuro oriented x3 Sensorium / Orientation: awake Motor Exam: Negative for general weakness Psych Mood & Affect: anxious Skin no rashes or lesions noted and no wounds Heart Score History: Slightly/Non-Suspicious ECG: Normal Age: </= 45 years Risk Factors: No Risk Factors Troponin: </= Normal Limit Score: 0 MDM MDM MDM Narrative Medical decision making narrative: Patient evaluated for chest pain that started this morning. Patient is anxious intermittently moans out with her pain. Vital signs are however are normal. Differential includes pneumothorax, PE (she is on control but otherwise low risk per Wells criteria), muscle skeletal pain, pericarditis/endocarditis. Low suspicion for ACS given patient's age and risk factors. She also possible to be referred GI pain. Patient is given Tylenol and Lidoderm patch in the ER for symptom control. Repeat evaluation patient seems more comfortable. Hemodynamically stable emergency room. Cardiac workup largely normal. D-dimer normal. Suspect the pain is muscle skeletal. Chest x-ray 2 views reviewed by myself as well as radiology does not show any acute process. Lab Data Attestation: I reviewed the patient's lab results. Labs: Laboratory Results - last 24 hr 06/30/24 14:12 WBC 8.1 RBC 4.61 Hgb 12.7 Hct 39.6 MCV 85.9 MCH 27.5 MCHC 32.1 RDW Std Deviation 39.5 RDW Coeff of Vanna 12.6 Plt Count 412 MPV 9.3 Immature Gran % (Auto) 0.200 Neut % (Auto) 55.4 Lymph % (Auto) 36.3 [place] % (Auto) 6.7 Eos % (Auto) 0.9 Baso % (Auto) 0.5 Absolute Neuts (auto) 4.5 Absolute Lymphs (auto) 2.94 Nucleated RBC % 0 D-Dimer Quant (PE/DVT) 0.27 Sodium 137 Potassium 4.0 Chloride 103 Carbon Dioxide 23.2 Anion Gap 12 BUN 14 Creatinine 0.82 Estim Creat Clear Calc 73.37 Est GFR (MDRD) Non-Af 100 BUN/Creatinine Ratio 16.6 Glucose 144 H Calcium 9.6 Total Bilirubin 0.51 AST 19 ALT 9 Alkaline Phosphatase 95 Troponin T High Sens < 6 Total Protein 6.9 Albumin 3.9 Globulin 3.0 Albumin/Globulin Ratio 1.3 Lipase 41 Rhythm Strip Rhythm Strip: Sinus Rhythm Rate: 97 Ectopy: None EKG Initial EKG: Attestation: I personally reviewed and interpreted this EKG as follows: Interpretation: Sinus Rhythm Comments: Normal sinus rhythm at a rate of 94 bpm Normal axis Normal intervals Normal ST segments Nonspecific T wave abnormalities No change made to prior EKG on 03/22/2016 Discharge Plan Triage Chief Complaint: Chest Pain ED Provider: Michell Foster Dx/Rx/DC Orders Clinical Impression: Anterior chest wall pain Instructions: ED Chest Wall Strain Prescriptions: No Action cyanocobalamin (vitamin B-12) 1,000 mcg tablet extended release 1,000 mcg PO DAILY ketoconazole 2 % cream 1 applic topical DAILY PRN (Reason: skin irritation) ketoconazole 2 % shampoo 1 applic topical DAILY PRN (Reason: SCALP IRRITATION) metronidazole 0.75 % cream 1 applic topical DAILY PRN (Reason: skin irritation) ivermectin 1 % cream 1 applic topical DAILY PRN (Reason: FACE) amitriptyline 25 mg tablet 25 mg PO QHS cetirizine 10 MG tablet 10 mg PO DAILY ibuprofen 200 MG tablet 200 mg PO Q6H PRN (Reason: Fever) albuterol sulfate 1 PUFF inhaler 1 - 2 puff inhalation Q6H PRN (Reason: Sob &/Or Wheezing) sumatriptan 20 MG spray,non-aerosol 20 mg NS DAILY PRN (Reason: MIGRAINES) fluticasone propionate 1 SPRAY spray,suspension 1 spray NASAL BID fluticasone propionate 1 INHALER inhaler 1 puff inhalation BID L norgest/e.estradiol-e.estrad 1 EACH tablets,dose pack,3 month 1 ea PO DAILY Culturelle 10 billion cell capsule 1 cap PO DAILY methylphenidate HCl 30 mg capsule, ER biphasic 30-70 30 mg PO DAILY cholecalciferol (vitamin D3) [D3 DOTS] 50 mcg (2,000 unit) tablet 50 mcg PO DAILY Laxative (sennosides) 15 mg tablet 15 mg PO DAILY Linzess 145 mcg capsule 145 mcg PO BID Qty: 60 0RF Primary Care Provider: Álvaro Roy Referrals: Álvaro Roy MD [Primary Care Provider] - Print Language: Lithuanian Disposition Disposition: Home, Self Care
[2024-06-30] MEDS: Lidocaine 5% Patch 1 PATCH TOPICAL (14:23)
[2024-06-30] MEDS: Acetaminophen 325 MG Tablet 650 MG PO (14:23)
[2024-06-30 14:30] LABS: Absolute Lymphocyte Count 2.94 X10^3/uL (0.83-4.51); Absolute Neutrophil Count 4.5 X10^3/uL (2.0-7.7); Basophil# 0.04 X10^3/uL; Basophil% 0.5 % (0-1); Eosinophil# 0.07 X10^3/uL; Eosinophils% 0.9 % (0-5); Hematocrit 39.6 % (37-47); Hemoglobin 12.7 g/dL (12.0-15.0); Lymphocyte # 2.94 X10^3/ul (0.83-4.51); Lymphocyte % 36.3 % (19-41); Mean Corp Hgb Conc 32.1 g/dL (32-36); Mean Corpuscular Hgb 27.5 pg (27.0-32.0); Mean Corpuscular Volume 85.9 fL (81-99); Mean Platelet Vol. 9.3 fl (6.2-12.0); Monocyte# 0.54 X10^3/uL; Monocyte% 6.7 % (0-10); NRBC Flagged by Analyzer 0 % (0-5); Neutrophil # 4.49 X10^3/uL (2.7-7.7); Neutrophil % 55.4 % (47-70); Platelet Count 412 K/mm3 (150-450); RBC Distribution Width CV 12.6 % (11.6-14.6); RBC Distribution Width SD 39.5 fl (35.1-43.9); Red Blood Count 4.61 M/mm3 (4.2-5.4); White Blood Count 8.1 K/mm3 (4.4-11.0)
[2024-06-30 14:35] VITALS: BP 97/82; PULSE 74; RESP 14; O2SAT 97
[2024-06-30 14:39] LABS: D-Dimer Quantitative (DVT/PE) 0.27 FEU/ug/m (0.27-0.49)
[2024-06-30 14:48] LABS: ALB/GLOB Ratio 1.3 RATIO (0.9-2.4); AST(SGOT) 19 U/L (<=31); Alanine Aminotransfer ALT/SGPT 9 U/L (<=34); Albumin, Serum 3.9 g/dL (3.5-5.0); Alkaline Phosphatase 95 U/L (35-104); Anion Gap 12 (5-15); BUN 14 mg/dL (4-19); BUN/Creat Ratio 16.6 RATIO (10-20); Calcium,Total 9.6 mg/dL (7.6-11.0); Carbon Dioxide 23.2 mmol/L (21.0-32.0); Chloride 103 mmol/L (98-108); Creatinine, Serum 0.82 mg/dL (0.70-1.20); EST Glomerular Filtration Rate 100 (>60); Estimated Creatinine Clearance 73.37 ml/min (50-250); Glucose 144 mg/dL (70-99); Lipase 41 U/L (13-75); Protein, Total 6.9 g/dL (5.9-8.4); Sodium Level 137 mmol/L (133-145); Total Bilirubin 0.51 mg/dL (0.00-1.30); Troponin T High Sensitivity < 6 ng/L (<=14)
[2024-06-30 15:00] VITALS: BP 104/83; PULSE 72; RESP 14; O2SAT 97
--- NOTE | 2024-06-30 15:35 | RAD_ITS ---
EXAM: XR Chest, 2 Views CLINICAL INDICATION: CHEST PAIN TECHNIQUE: Frontal and lateral views of the chest. COMPARISON: No relevant prior studies available. FINDINGS: LUNGS AND PLEURAL SPACES: Unremarkable. No consolidation. No pneumothorax. HEART: Unremarkable. No cardiomegaly. MEDIASTINUM: Unremarkable. Normal mediastinal contour. BONES/JOINTS: Unremarkable. No acute fracture. RAD/Chest PA and Lateral IMPRESSION: No acute cardiopulmonary process. Reading Location: [facility]
[2024-06-30 15:59] VITALS: BP 117/79; PULSE 78; RESP 18; TEMP 36.6; O2SAT 98
== END 2024-06-30 16:00 | disposition home or self-care (01) ==
PROVIDERS: Emergency Provider Emergency Medicine; PCP Family Medicine; Visit Provider Emergency Medicine
DX: R07.89 Other chest pain (principal); G80.9 Cerebral palsy, unspecified; R11.0 Nausea; R06.00 Dyspnea, unspecified; K21.9 Gastro-esophageal reflux disease without esophagitis; F09 Unspecified mental disorder due to known physiological condition
CPT/HCPCS: 71046; 80048; 80053; 83690; 84484; 85025; 85379; 93005; 99284; A4216

== ENCOUNTER → 2024-09-29 | Outpatient (CLI) | payer MEDICARE, MEDICAID, SELFPAY ==
[2024-09-29 18:14] LABS: Hematocrit 44.3 % (37-47); Hemoglobin 13.9 g/dL (12.0-15.0); Immature Granulocytes Count 0.020 X10^3/uL (0.0-0.0); Mean Corp Hgb Conc 31.4 g/dL (32-36); Mean Corpuscular Volume 85.4 fL (81-99); Mean Platelet Vol. 9.5 fl (6.2-12.0); NRBC Flagged by Analyzer 0 % (0-5); Platelet Count 420 K/mm3 (150-450); RBC Distribution Width CV 12.7 % (11.6-14.6); RBC Distribution Width SD 39.5 fl (35.1-43.9); Red Blood Count 5.19 M/mm3 (4.2-5.4); White Blood Count 10.9 K/mm3 (4.4-11.0)
[2024-09-29 19:43] LABS: Anion Gap 15 (5-15); BUN 15 mg/dL (4-19); BUN/Creat Ratio 19.5 RATIO (10-20); Calcium,Total 10.2 mg/dL (7.6-11.0); Carbon Dioxide 23.7 mmol/L (21.0-32.0); Chloride 101 mmol/L (98-108); Glucose 98 mg/dL (70-99); Potassium 4.7 mmol/L (3.3-5.1)
[2024-09-29 20:32] LABS: Vitamin D,25 Hydroxy 69.4 ng/mL (30-100)
== END | disposition home or self-care (01) ==
LOC: MFPLAB 15:30
PROVIDERS: PCP Family Medicine; Referring Provider Family Medicine; Visit Provider Family Medicine
DX: Z01.818 Encounter for other preprocedural examination (principal); Z13.1 Encounter for screening for diabetes mellitus; E55.9 Vitamin D deficiency, unspecified
CPT/HCPCS: 36415; 80048; 82306; 83036; 85025

== ENCOUNTER → 2024-10-08 | Outpatient (CLI) | payer MEDICARE, MEDICAID, SELFPAY | END | disposition home or self-care (01) | LOC: MFPLAB 16:02 | PROVIDERS: PCP Family Medicine; Referring Provider Family Medicine; Visit Provider Family Medicine | DX: R30.0 Dysuria (principal) | CPT/HCPCS: 87077; 87086; 87088 ==

== ENCOUNTER 2024-10-16 08:13 | Day surgery (SDC) | payer MEDICARE, MEDICAID, SELFPAY ==
--- NOTE | 2024-10-09 08:38 | PAT.ANESEVAL ---
Pre-Assessment Diagnosis/Proposed Procedure Planned Operative Procedure(s): TBD Anesthesia History Anesthesia History - acid pumper: Anesthesia History - acid pumper Hx Hospitalization No 10/09/24 08:14 Any Problems With Anesthesia No 10/09/24 08:14 Cholinesterase deficiency No 10/09/24 08:14 You/Your Family Experience No 10/09/24 08:14 fever (hyperthermia) with Relationship Recent Exposure to Contagious Disease Does patient have nerve No 10/09/24 08:14 stimulator Patient instructed to have device shut off --Does patient have Pacemaker or ICD? When Was Last Pacemaker Check QUESTION #4 FULL TEXT: You/Your Family Experience fever (hyperthermia) with Anesthesia Last Oral Intake Last Oral intake: Last Oral Intake NPO since Meds taken in AM with sips of water? Meds patient instructed to take am of surgery PONV PONV - acid pumper: PONV - acid pumper Female Yes 10/09/24 08:14 HX of Motion Sickness No 10/09/24 08:14 HX of N/V After Surgery No 10/09/24 08:14 Non-Smoker Yes 10/09/24 08:14 Duration of Surgery greater Yes 10/09/24 08:14 than 60 minutes Number of Risk Factors 3 10/09/24 08:14 PONV Score Moderate Risk 10/09/24 08:14 Height & Weight Height & Weight: Anesthesia: Height & Weight Height 5 ft 10/01/24 15:48 Respiratory Assessment Respiratory Assessment - acid pumper: Respiratory Tract Infection Hx - acid pumper Hx Respiratory Tract Infection No 10/09/24 08:14 STOP Sleep Apnea STOP Sleep Apnea - acid pumper: STOP Sleep Apnea - acid pumper Hx Hypertension No 10/09/24 08:14 Hx Sleep Apnea No 10/09/24 08:14 CPAP BIPAP Do you snore loudly (louder No 10/09/24 08:14 than talking or can be heard Do you often feel tired/ No 10/09/24 08:14 fatigued/ sleepy during daytime? Has anyone observed you stop No 10/09/24 08:14 breathing during sleep? STOP Results Negative 10/09/24 08:14 QUESTION #5 FULL TEXT : Do you snore loudly (louder than talking or can be heard through closed doors)? 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 confused, unrespo /Reproduction History /Reproductive History - acid pumper: /Reproductive Hx- acid pumper Hx Now No 10/09/24 08:14 Gestational Age (in weeks): EDC: Hx Hx Para Hx Section SAB No 10/09/24 08:14 [facility] Medical History (Updated 10/09/24 @ 08:23 by Paige Echeverria) Teeth grinding Wears glasses Anxiety Diabetes Back pain Migraine headache Difficulty swallowing Constipation Non-smoker GERD (gastroesophageal reflux disease) Cerebral palsy Cognitive developmental delay g tube removal g tube thalfundoplication Asthma Home Medications ?Medication ?Instructions ?Recorded ?Last Taken ?Type albuterol sulfate 90 mcg/actuation 1 - 2 puff inhalation Q6H PRN Sob 03/22/16 Unknown History aerosol inhaler &/Or Wheezing cetirizine 10 mg tablet 10 mg PO DAILY 03/22/16 06/30/24 History fluticasone propionate 110 1 puff inhalation BID 03/22/16 06/30/24 History mcg/actuation HFA aerosol inhaler fluticasone propionate 50 1 spray NASAL BID 03/22/16 06/30/24 History mcg/actuation nasal spray,suspension ibuprofen 200 mg tablet 200 mg PO Q6H PRN Fever 03/22/16 Unknown History sumatriptan 20 mg/actuation nasal 20 mg NS DAILY PRN MIGRAINES 03/22/16 Unknown History spray amitriptyline 25 mg tablet 25 mg PO QHS 04/04/22 06/29/24 History cyanocobalamin (vitamin B-12) 1,000 mcg PO DAILY 04/04/22 06/30/24 History 1,000 mcg tablet,extended release ivermectin 1 % topical cream 1 applic topical DAILY PRN FACE 04/04/22 Unknown History ketoconazole 2 % shampoo 1 applic topical DAILY PRN SCALP 04/04/22 Unknown History IRRITATION ketoconazole 2 % topical cream 1 applic topical DAILY PRN skin 04/04/22 Unknown History irritation metronidazole 0.75 % topical cream 1 applic topical DAILY PRN skin 04/04/22 Unknown History irritation Lactobacillus rhamnosus GG 10 1 cap PO DAILY 06/30/24 06/30/24 History billion cell capsule (Culturelle) cholecalciferol (vitamin D3) 50 50 mcg PO DAILY 06/30/24 06/30/24 History mcg (2,000 unit) tablet (D3 DOTS) methylphenidate HCl 30 mg biphasic 30 mg PO DAILY 06/30/24 06/30/24 History 30-70 capsule,extended release polyethylene glycol 3350 17 17 g PO BID #850 grams 10/01/24 Unknown Rx gram/dose oral powder (Miralax) sennosides 25 mg tablet (Ex-Lax 25 mg PO QDAY 10/01/24 Unknown History Maximum Strength) albuterol sulfate 2.5 mg/3 mL 2.5 mg inhalation Q6H PRN 10/09/24 Unknown History (0.083 %) solution for nebulization shortness of breath or wheezing Allergy/AdvReac Type Severity Reaction Status Date / Time allantoin (From Orajel) Allergy Swelling Verified 10/09/24 08:11 benzalkonium chloride (From Allergy Swelling Verified 10/09/24 08:11 Orajel) benzocaine (From Orajel) Allergy Swelling Verified 10/09/24 08:11 carbamide peroxide (From Allergy Swelling Verified 10/09/24 08:11 Orajel) ceftriaxone (From Rocephin) Allergy Rash Verified 10/09/24 08:11 zinc chloride (From Orajel) Allergy Swelling Verified 10/09/24 08:11 methylphenidate (From AdvReac Unknown Verified 08/29/25 08:11 Ritalin) Family History Mother Asthma Hypertension CAD (coronary artery disease) Myocardial infarction A-fib Surgical History H/O eye surgery Hx of tonsillectomy Social History Smoking Status: Unknown if ever smoked alcohol intake: never Recommendation Anesthesia Recommendation Anesthesia recommendation: OPTIMIZED for anesthesia
[2024-10-16] VITALS (10 sets, daily range): BP systolic 99–114; BP diastolic 59–77; PULSE 74–97; RESP 16–18; TEMP 36.1–36.6; O2SAT 100; BMI 22.4
[2024-10-16] MEDS: Lactated Ringers 1,000 ML 15 ML IV (09:02)
--- NOTE | 2024-10-16 09:20 | PCM.PRE.AN2 ---
ASA Classification* ASA Classification ASA Classification: 3 Assessment & Plan Anesthesia* Anesthesia Assessment Anesthesia Assessment: Discussed sedation and/or anesthesia options, risks, benefits, and alternatives with patient/parents/legal guardian/POA. Questions invited. The patient/parents/legal guardian/POA seems to understand and agrees to proceed with anesthesia plan. Reviewed the physical assessment, medical history, allergy history and patient home medications list prior to surgery/procedure/anesthetic and documented any changes. Performed airway and anesthesia risk assessments. Anesthesia Type Anesthesia Type: General and Block Anesthesia Focused Assessment* Temperature: 97.2 F Pulse Rate: 97 Blood Pressure: 108/69 Respiratory Rate: 18 Pulse Ox: 100 Airway Assessment Mouth opens: >3 cm Mallampati Score: II Labs Anesthesia Preop lab: CBC WBC 10.9 K/mm3 (4.4-11.0) 09/29/24 15:09/29/24 RBC 5.19 M/mm3 (4.2-5.4) 09/29/24 15:30 09/29/24 Hgb 13.9 g/dL (12.0-15.0) 09/29/24 15:30 09/29/24 Hct 44.3 % (37-47) 09/29/24 15:30 09/29/24 Plt Count 420 K/mm3 (150-450) 09/29/24 15:30 09/29/24 CHEMISTRY Potassium 4.7 mmol/L (3.3-5.1) 09/29/24 15:30 09/29/24 Sodium 139 mmol/L (133-145) 09/29/24 15:30 09/29/24 Magnesium 2.0 mg/dL (1.6-2.6) 02/15/22 15:18 02/15/22 BUN 15 mg/dL (4-19) 09/29/24 15:30 09/29/24 Creatinine 0.79 mg/dL (0.70-1.20) 09/29/24 15:30 09/29/24 Glucose 98 mg/dL (70-99) 09/29/24 15:30 09/29/24 TSH 2.33 uIU/mL (0.358-3.74) 02/15/22 15:18 02/15/22 COAG Pre-Assessment Diagnosis/Proposed Procedure Planned Operative Procedure(s): TBD Anesthesia History Anesthesia History - recovery coach: Anesthesia History - recovery coach Hx Hospitalization No 10/09/24 08:14 Any Problems With Anesthesia No 10/09/24 08:14 Cholinesterase deficiency No 10/09/24 08:14 You/Your Family Experience No 10/09/24 08:14 fever (hyperthermia) with Relationship Recent Exposure to Contagious No 10/16/24 08:39 Disease Does patient have nerve No 10/09/24 08:14 stimulator Patient instructed to have device shut off --Does patient have Pacemaker No 10/16/24 08:39 or ICD? When Was Last Pacemaker Check QUESTION #4 FULL TEXT: You/Your Family Experience fever (hyperthermia) with Anesthesia Last Oral Intake Last Oral intake: Last Oral Intake NPO since 17:00 10/16/24 08:39 Meds taken in AM with sips of water? Meds patient instructed to take am of surgery PONV PONV - recovery coach: PONV - recovery coach Female Yes 10/09/24 08:14 HX of Motion Sickness No 10/09/24 08:14 HX of N/V After Surgery No 10/09/24 08:14 Non-Smoker Yes 10/09/24 08:14 Duration of Surgery greater Yes 10/09/24 08:14 than 60 minutes Number of Risk Factors 3 10/09/24 08:14 PONV Score Moderate Risk 10/09/24 08:14 Height & Weight Height & Weight: Anesthesia: Height & Weight Height 5 ft 10/16/24 08:39 Weight: 52 kg 10/16/24 08:39 Body Mass Index (BMI) 22.4 10/16/24 08:39 Respiratory Assessment Respiratory Assessment - recovery coach: Respiratory Tract Infection Hx - recovery coach Hx Respiratory Tract Infection No 10/09/24 08:14 STOP Sleep Apnea STOP Sleep Apnea - recovery coach: STOP Sleep Apnea - recovery coach Hx Hypertension No 10/09/24 08:14 Hx Sleep Apnea No 10/09/24 08:14 CPAP BIPAP Do you snore loudly (louder No 10/09/24 08:14 than talking or can be heard Do you often feel tired/ No 10/09/24 08:14 fatigued/ sleepy during daytime? Has anyone observed you stop No 10/09/24 08:14 breathing during sleep? STOP Results Negative 10/09/24 08:14 QUESTION #5 FULL TEXT : Do you snore loudly (louder than talking or can be heard through closed doors)? 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 confused, unrespo /Reproduction History /Reproductive History - recovery coach: /Reproductive Hx- recovery coach Hx Now No 10/09/24 08:14 Gestational Age (in weeks): EDC: Hx Hx Para Hx Section SAB No 10/09/24 08:14 Active Medications Active Medications: Current Medications Generic Name Dose Route Start Last Admin Trade Name Freq PRN Reason Stop Dose Admin Clindamycin Phosphate 900 mg in 50 mls @ 75 mls/hr 10/16/24 09:45 Cleocin IV 10/16/24 10:24 INTRAOP ONE Lactated Ringer's 1,000 mls @ 15 mls/hr 10/16/24 08:30 10/16/24 09:02 IV 15 mls/hr .Q48H DHAVAL Administration PFSH Medical History (Updated 10/09/24 @ 08:23 by Paige Echeverria) Teeth grinding Wears glasses Anxiety Diabetes Back pain Migraine headache Difficulty swallowing Constipation Non-smoker GERD (gastroesophageal reflux disease) Cerebral palsy Cognitive developmental delay g tube removal g tube thalfundoplication Asthma Home Medications ?Medication ?Instructions ?Recorded ?Last Taken ?Type albuterol sulfate 90 mcg/actuation 1 - 2 puff inhalation Q6H PRN Sob 03/22/16 10/16/24 History aerosol inhaler &/Or Wheezing cetirizine 10 mg tablet 10 mg PO DAILY 03/22/16 10/15/24 History fluticasone propionate 110 1 puff inhalation BID 03/22/16 10/16/24 History mcg/actuation HFA aerosol inhaler fluticasone propionate 50 1 spray NASAL BID 03/22/16 10/16/24 History mcg/actuation nasal spray,suspension ibuprofen 200 mg tablet 200 mg PO Q6H PRN Fever 03/22/16 Unknown History sumatriptan 20 mg/actuation nasal 20 mg NS DAILY PRN MIGRAINES 03/22/16 Unknown History spray amitriptyline 25 mg tablet 25 mg PO QHS 04/04/22 10/15/24 History cyanocobalamin (vitamin B-12) 1,000 mcg PO DAILY 04/04/22 10/15/24 History 1,000 mcg tablet,extended release ivermectin 1 % topical cream 1 applic topical DAILY PRN FACE 04/04/22 10/15/24 History ketoconazole 2 % shampoo 1 applic topical DAILY PRN SCALP 04/04/22 Unknown History IRRITATION ketoconazole 2 % topical cream 1 applic topical DAILY PRN skin 04/04/22 Unknown History irritation metronidazole 0.75 % topical cream 1 applic topical DAILY PRN skin 04/04/22 10/16/24 History irritation Lactobacillus rhamnosus GG 10 1 cap PO DAILY 06/30/24 10/15/24 History billion cell capsule (Culturelle) cholecalciferol (vitamin D3) 50 50 mcg PO DAILY 06/30/24 10/15/24 History mcg (2,000 unit) tablet (D3 DOTS) methylphenidate HCl 30 mg biphasic 30 mg PO DAILY 06/30/24 10/15/24 History 30-70 capsule,extended release polyethylene glycol 3350 17 17 g PO BID #850 grams 10/01/24 10/15/24 Rx gram/dose oral powder (Miralax) sennosides 25 mg tablet (Ex-Lax 25 mg PO QDAY 10/01/24 10/15/24 History Maximum Strength) albuterol sulfate 2.5 mg/3 mL 2.5 mg inhalation Q6H PRN 10/09/24 Unknown History (0.083 %) solution for nebulization shortness of breath or wheezing Allergy/AdvReac Type Severity Reaction Status Date / Time allantoin (From Orajel) Allergy Swelling Verified 10/16/24 08:36 benzalkonium chloride (From Allergy Swelling Verified 10/16/24 08:36 Orajel) benzocaine (From Orajel) Allergy Swelling Verified 10/09/24 08:11 carbamide peroxide (From Allergy Swelling Verified 10/16/24 08:36 Orajel) ceftriaxone (From Rocephin) Allergy Rash Verified 10/16/24 08:36 zinc chloride (From Orajel) Allergy Swelling Verified 10/16/24 08:36 methylphenidate (From AdvReac Unknown Verified 10/16/24 08:36 Ritalin) Family History Mother Asthma Hypertension CAD (coronary artery disease) Myocardial infarction A-fib Surgical History H/O eye surgery Hx of tonsillectomy Social History Smoking Status: Unknown if ever smoked alcohol intake: never Review of Systems (Anesthesia) ROS Narrative System reviewed and no additional complaints, except as documented.
[2024-10-16] MEDS: Midazolam 2 MG/2 ML Syringe IV (09:32)
--- NOTE | 2024-10-16 09:54 | PCM.OPRPT ---
Problems Associated Problem List Diagnoses (1) Short Achilles tendon (acquired), left ankle: (2) Other hammer toe(s) (acquired), left foot: (3) Pain in left foot: Operative Report (Standard) Operative Information Date of Procedure: 10/16/24 Pre-Operative Diagnosis: 1. Short Achilles tendon, left lower extremity 2. Hammertoes, 2nd, 3rd, 4th and 5th digits, left foot 3. Pain, left foot Post-Operative Diagnosis: 1. Short Achilles tendon, left lower extremity 2. Hammertoes, 2nd, 3rd, 4th and 5th digits, left foot 3. Pain, left foot Surgery/Procedure Performed: Procedure #1: Bone marrow aspirate concentrate harvest, left lower extremity Procedure #2: Endoscopic gastroc recession, left lower extremity Procedure #3: Second digit proximal interphalangeal joint arthrodesis, left foot Procedure #4: Third digit proximal interphalangeal joint arthrodesis, left foot Procedure #5: Flexor tenotomy's, 2nd, 3rd, 4th and 5th digit, left foot Procedure #6: 2nd, 3rd, 4th and 5th metatarsophalangeal joint extensor/capsulotomies, left foot resolution agent: No Type of Anesthesia: General/Regional RN Documented Start/Stop Times: Operation Date: 10/16/24 09:45 Case Time Into Pre-Op 10/16/24 08:16 Out of Pre-Op 10/16/24 09:52 Anesthesia Start 10/16/24 09:53 Into Room 10/16/24 09:53 Procedure Start 10/16/24 10:13 Procedure End 10/16/24 12:27 Anesthesia End 10/16/24 12:34 Out of Room 10/16/24 12:34 Into Recovery 10/16/24 12:35 Out of Recovery 10/16/24 13:25 Into Phase II Recovery 10/16/24 13:27 Out of Phase II 10/16/24 14:30 Procedure Start Time: 10:13 Procedure Stop Time: 12:27 Select all DRAINS/GRAFTS/IMPLANTS that apply: None Special Medications: Per anesthesia Estimated Blood Loss: 30 cc Fluids Replaced: Per anesthesia Specimen collected: No Description of surgery: Indications For Operation: Ms. Hurst is a [age]-year-old female who was admitted to [facility] for left foot surgery. Patient is well-known to my private office and has been treated conservatively secondary to hammertoe contractures as well as tight Achilles tendon to the left lower extremity. We have exhausted all conservative treatment consisting of shoe gear modification, stretching and home physical therapy. Patient does suffer from a mild case of CP and does have some tight contracture to the posterior muscle group that has been causing pain for some time. Once we have exhausted all conservative treatment I started discussed with the parents the need for surgical intervention to help get the patient a more rectus foot so that we can brace comfortably to decrease her falls which they are all understanding of. We elected move forward with the above procedure with all risk and benefits discussed with the patient great detail. Chart reviewed and consent signed. Patient did have surgical consultation and aware of all complications. Due to contracture of the lesser digits as well as contracture of the posterior muscle group to the left lower extremity it was deemed necessary at this time to perform the above procedure to help give the patient more rectus foot so that we can brace and decrease her falls as well as decrease her constant pain. The nature of the problem, anticipated procedures, postop recovery/convalences and risk/complications include but not limited to infection, wound healing complications, digital amputation, hypertrophic scarring, numbness, tingling, chronic pain, CRPS, over and under correction, recurrence of deformity, DVT and or PE and the need for further surgery have been discussed in great detail with the patient. All questions have been answered to the patient's satisfaction. There are no guarantees given as to the outcome of the procedure. Description of Procedure: Under mild sedation, the patient was brought into the operating room and placed on the operating table in supine position. Once the patient was under general anesthesia with laryngeal mask airway, the left lower extremity was blocked by anesthesia in the PACU with a adductor and popliteal block prior to her procedure please see anesthesia notes for further detail. Next, a well-padded thigh tourniquet was applied to the left lower extremity. Next, the left lower extremity was prepped and draped in normal aseptic manner. Next, a timeout was then undertaken verifying the correct patient, extremity, visibility of preoperative markings, availability of the equipment. Procedure #1: Bone marrow aspirate concentrate harvest, left lower extremity (CPT code: 19701) Next, attention was directed to the lateral aspect of the left heel. Using a Jamshidi needle and mallet the needle was inserted into the lateral wall of the calcaneus on incident. Approximately 60 cc of bone marrow aspirate concentrate was harvested and passed the back table to be spun off for concentrate injection as well as platelet poor plasma to be used at the end of the case. Procedure #2: Endoscopic gastroc recession, left lower extremity (CPT code: 05716) Next, attention was directed to the left lower extremity. Using a 4 Esmarch, left lower extremity was exsanguinated and elevated to 60 degrees for 1 minute. Next, attention was directed to the left lower extermity. A silfverskiold test was performed on the operating table. There was evidence of a positive Silfverskiold test for gastrocnemius equinus. Next, attention was directed to the aponeurosis of the gastrocnemius muscle. A small stab incision was placed approximately 2 to 3 cm from the gastroc insertion. Using the Linch centerless grinder operator the aponeurosis was bow strong and then advanced to the lateral aspect of the left lower extremity. Once tenting of the skin was identified a small stab incision was made with a 15 blade laterally. Using the Liberty obturator and cannula, it was advanced through both incisions. Using the Linch 30 degree 4.0 mm scope there showed evidence of the aponeurosis of the gastrocnemius muscle. Using the rasp the muscle fibers/Sub Q were removed from the aponeurosis tissue. Using the Linch 30 degree 4.0 mm scope and hook and triangle blade, careful incision across the aponeurosis was made half laterally then half medially until released. After release of the aponeurosis the ankle was put through range of motion with the knee extended as well as flexed and showed to be increased past 90 in both positions. Both incisions were flushed with copious rosana of warm saline. The skin was reapproximated and closed with 3-0 nylon in simple interrupted suture technique. Procedure #3: Second digit proximal interphalangeal joint arthrodesis, left foot (CPT code: 75943?T1) Next, attention was directed to the dorsal aspect of the PIPJ of the left second digit. Using a sterile skin marker an ellipse incision was carried over the dorsal knuckle of the PIPJ. Using a #15 blade a full-thickness incision was carried down to subcutaneous tissue. The skin island was removed with pickups and 15 blade and passed the back table to be discarded. A capsulotomy of the PIPJ was performed releasing the extensor as well as the medial and lateral collateral ligaments of the PIPJ. The head of the proximal phalanx was freed and using a sagittal saw and #114 blade, the head of the proximal phalanx/osteotomy was performed and the head was removed and passed the back table to be discarded. Preparation of the base of the intermittent phalanx was performed using the end of the sagittal saw blade as well as with curette. The area was flushed with copious normal saline. The small toe tack implant was placed using the manufactures recommendation with the rep in the room which showed good apposition across the PIPJ of the second digit. Position was confirmed with large C-arm fluoroscopy as well as clinically. Kelikian push-up test showed still some contracture at the level of the long flexor as well as capsule which should be performed later on in the case. Next, the medial and lateral collateral ligaments were reapproximated using 3-0 Vicryl with simple interrupted suture technique. The extensor was reapproximated back to its original position and held in place with 3-0 Vicryl and over and over suture technique. Procedure #4: Third digit proximal interphalangeal joint arthrodesis, left foot (CPT code: 79565?T2) Next, attention was directed to the dorsal aspect of the PIPJ of the left third digit. Using a sterile skin marker an ellipse incision was carried over the dorsal knuckle of the PIPJ. Using a #15 blade a full-thickness incision was carried down to subcutaneous tissue. The skin island was removed with pickups and 15 blade and passed the back table to be discarded. A capsulotomy of the PIPJ was performed releasing the extensor as well as the medial and lateral collateral ligaments of the PIPJ. The head of the proximal phalanx was freed and using a sagittal saw and #114 blade, the head of the proximal phalanx/osteotomy was performed and the head was removed and passed the back table to be discarded. Preparation of the base of the intermittent phalanx was performed using the end of the sagittal saw blade as well as with curette. The area was flushed with copious normal saline. The small toe tack implant was placed using the manufactures recommendation with the rep in the room which showed good apposition across the PIPJ of the second digit. Position was confirmed with large C-arm fluoroscopy as well as clinically. Kelikian push-up test showed still some contracture at the level of the long flexor as well as capsule which should be performed later on in the case. Next, the medial and lateral collateral ligaments were reapproximated using 3-0 Vicryl with simple interrupted suture technique. The extensor was reapproximated back to its original position and held in place with 3-0 Vicryl and over and over suture technique. Procedure #5: Flexor tenotomy's, 2nd, 3rd, 4th and 5th digit, left foot (CPT code: 63774?T1, T2, T3, T4) Next, the lesser digit flexor tenotomy's were all performed in the same fashion using a [place] blade and handle through separate incisions. Attention was directed to the plantar aspect of the PIPJ of the 2nd, 3rd, 4th and 5th digit, using a [place] blade and handle flexor tenotomy was performed through small incisions on the plantar aspect of the lesser digits. Audible as well as clinical release was verified on the operating room table. Kelikian push-up test was performed after the tenotomy was completed on the lesser digits of 2nd, 3rd, 4th and 5th digit of the left foot, which still showed evidence of contracture at the metatarsophalangeal joints. The incisions were flushed with copious normal saline. Procedure #6: 2nd, 3rd, 4th and 5th metatarsophalangeal joint extensor/capsulotomies, left foot (CPT code: 14309?T1, T2, T3, T4) Next, the lesser metatarsophalangeal joints were all performed in the same fashion using a [place] blade and handle through separate incision attention was directed to the dorsal aspect of the metatarsal phalangeal joint of the 2nd, 3rd, 4th and 5th metatarsophalangeal joints. Each incision was performed and a audible as well as clinical release was verified on the operating room table. Kelikian push-up test was performed after the capsulotomy/extensor release and showed evidence of good rectus digits to the 2nd, 3rd, 4th and 5th digits to the left lower extremity. Next, the left thigh tourniquet was deflated and reperfusion was noted instantly to the left lower extremity. All bleeders were cauterized and ligated as necessary. Next, all flexor tenotomy incisions to the plantar aspect of the lesser digits were reapproximated and closed with 4-0 nylon in simple interrupted suture technique. Next, the extensor/capsulotomy incisions to the dorsal aspect of the lesser metatarsal phalangeal joints were reapproximated and closed with 4-0 nylon in simple interrupted suture technique. Next, attention was directed to the second digit at the level of the PIPJ, the skin was reapproximated closed with 4-0 nylon in simple interrupted suture technique. Next attention was directed to the third digit at the level of the PIPJ, the skin was reapproximated closed with 4-0 nylon in simple interrupted suture technique. Next, the left lower extremities were cleaned and patted dry. Bone marrow aspirate concentrate was injected to all incisions on the lesser digits as well as the gastroc recession area. Platelet poor plasma was sprayed across all incisions. All incisions were dressed with Betadine soaked Adaptic dry sterile dressing and a single-layer Michael compression bandage was donned followed by cam boot to left lower extremity. The patient tolerated the procedure and anesthesia well and apparent satisfactory condition and was transported to the PACU for further monitoring prior to discharge home. Vital signs stable and vascular status intact to all digits bilateral. Post Operative Plan: Weightbearing: Patient can be partial weightbearing to the heel with Cam boot for transfer only to the left lower extremity. Full weightbearing right lower extremity. Antibiotics: 900 mg clindamycin through the IV DVT Prophylaxis: 81 mg aspirin daily Ladd: None Dressing: Betadine soaked Adaptic, dry sterile dressing single-layer Michael compression bandage, cam boot X-Rays: Post-operative films taken on the operating room. Pain Medication: Oxycodone 5 mg, Flexeril 10 mg Follow-up: Patient will follow-up at her postoperative appointment which is already scheduled. Surgical Findings: 1. Evidence of improved range of motion to left lower extremity ankle after endoscopic gastroc recession. I was able to get the ankle past 90 degrees which we were unable to with conservative treatment. 2. After hammertoe correction with arthrodesis, tenotomy's, and capsulotomies and extensor tenotomy's there showed evidence of rectus digits to the left lower extremity. Complications Complications: No Admit VTE Documentation VTE Present on Admission: No VTE Mechan Device Prophylaxis: SCD's VTE Pharm Prophylaxis ordered?: Yes
[2024-10-16] MEDS: Lidocaine 1% (5 ml sdv) 5 ML Vial 6 ML IV (10:01)
--- NOTE | 2024-10-16 10:40 | RAD_ITS ---
PROCEDURE: FOOT 2 VIEWS 10/16/2024 REASON FOR EXAM: ENDOSCOPIC GASTROCNEMIUS RECESSION TECHNIQUE: Procedure Code: RADFO2 Modality: DX Procedure: FOOT 2 VIEWS Laterality: FINDINGS: Intraoperative fluoroscopy for an endoscopic gastrocnemius recession was performed. 107.0 seconds of fluoroscopic time. 0.76 mGy. See procedure report for full details. RAD/Foot 2 Views IMPRESSION: As above. Reading Location: [id number]
[2024-10-16] MEDS: Thrombin 5,000 IU Kit (PSA) 5,000 IU Vial 5000 IU TOPICAL (10:43)
[2024-10-16] MEDS: fentaNYL 100 MCG/2 ML Ampul IV (11:56)
[2024-10-16] MEDS: dexMEDEtomidine 200 MCG/2 ML ML 16 MCG IV (12:25)
--- NOTE | 2024-10-16 12:38 | PCM.POST.ANE ---
Anesthesia: Postop Eval I Current Vital Signs Temperature: 97 F Pulse Rate: 83 Blood Pressure: 113/73 Respiratory Rate: 16 Pulse Ox: 100 Assessment Airway patent: Yes Spontaneous unlabored respirations: Yes nausea: No Vomiting: No Anesthesia Complication: No Fluid Hydration Crystalloid volume administer (ml): 1,500 Total IV fluid infused: 1,500 Progress Note Anesthesia document: Postop Eval 1 completed: Yes
--- NOTE | 2024-10-16 13:23 | SUR.PHASEI ---
DR. AMIN MADE AWARE THAT THIS NURSE MISSED AN ERAS PROTOCOL. IT WAS NOT INCLUDED IN THE CONSENT NOR WAS THE ORDERS ON THE MAR. HE HAD A REGULAR ORDER SHEET AND THE ERAS SHEET WAS BELOW THAT WHICH I DID NOT SEE. HE SAID HE IS FINE WITH THIS BECAUSE PATIENT IS YOUNG.
--- NOTE | 2024-10-16 21:22 | POSTOPAN2_ITS ---
Anesthesia Postop Eval I Sum Postop Eval Completion status Anesthesia document: Postop Eval 1 completed: Yes Anesthesia Postop Eval I Summary Anesthesia Postop Eval I Summary: Anesthesia Postop Eval I: Assessment Summary Airway patent Yes 10/16/24 12:38 DOCUMENTATION [email or web address] Spontaneous unlabored Yes 10/16/24 12:38 DOCUMENTATION [email or web address] respirations Mental status nausea No 10/16/24 12:38 DOCUMENTATION [email or web address] Vomiting No 10/16/24 12:38 DOCUMENTATION [email or web address] Anesthesia Postop Eval I: Fluid Summary Crystalloid volume administer 1,500 10/16/24 12:38 DOCUMENTATION [email or web address] (ml) Colloids volume administered ( ml) Blood Product volume administered (ml) Total IV fluid infused 1,500 10/16/24 12:38 DOCUMENTATION [email or web address] Anesthesia Postop Eval I: Summary Notes Anesthesia Complication No 10/16/24 12:38 DOCUMENTATION [email or web address] Anesthesia Complication Comment: Post-operative progress note Anesthesia: Postop Eval II Evaluation Mental status: Awake and Calm Pain Level: 1 nausea: No Vomiting: No Complications Anesthesia Complication: No
--- NOTE | 2024-10-16 21:22 | PCM.POSTANE2 ---
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 Spontaneous unlabored Yes 10/16/24 12:38 OCCUPATIONAL WORK EXPERIENCE TEACHER.[email or web address] respirations Mental status nausea No 10/16/24 12:38 OCCUPATIONAL WORK EXPERIENCE TEACHER.[email or web address] Vomiting No 10/16/24 12:38 OCCUPATIONAL WORK EXPERIENCE [email or web address].[email or web address] Anesthesia Postop Eval I: Fluid Summary Crystalloid volume administer 1,500 10/16/24 12:38 OCCUPATIONAL WORK EXPERIENCE [email or web address] (ml) Colloids volume administered ( ml) Blood Product volume administered (ml) Total IV fluid infused 1,500 10/16/24 12:38 OCCUPATIONAL WORK EXPERIENCE [email or web address].[email or web address] Anesthesia Postop Eval I: Summary Notes Anesthesia Complication No 10/16/24 12:38 OCCUPATIONAL WORK EXPERIENCE [email or web address].[email or web address] Anesthesia Complication Comment: Post-operative progress note Anesthesia: Postop Eval II Evaluation Mental status: Awake and Calm Pain Level: 1 nausea: No Vomiting: No Complications Anesthesia Complication: No
== END 2024-10-16 14:35 | disposition home or self-care (01) ==
LOC: SDC 08:14 → AC 08:16
PROVIDERS: PCP Family Medicine; Referring Provider Podiatrist Foot & Ankle Surgery; Visit Provider Podiatrist Foot & Ankle Surgery
PROC: (CPT 28285; principal; 2024-10-16 09:30)
DX: M67.02 Short Achilles tendon (acquired), left ankle (principal); G80.9 Cerebral palsy, unspecified; E11.9 Type 2 diabetes mellitus without complications; M20.42 Other hammer toe(s) (acquired), left foot; J45.909 Unspecified asthma, uncomplicated; E55.9 Vitamin D deficiency, unspecified; K21.9 Gastro-esophageal reflux disease without esophagitis; F41.9 Anxiety disorder, unspecified; Z79.82 Long term (current) use of aspirin; Z79.899 Other long term (current) drug therapy
CPT/HCPCS: 28285 ×2; 28011 ×4; 28270 ×4; 38206; 29999; 64450; 01480; 73620; 76000; C1713; J2405

== ENCOUNTER 2024-10-30 13:35 | Day surgery (SDC) | payer MEDICARE, MEDICAID, SELFPAY ==
[2024-10-30] VITALS (8 sets, daily range): BP systolic 102–139; BP diastolic 62–92; PULSE 72–104; RESP 14–18; TEMP 36.2–37.1; O2SAT 100; BMI 21.5
--- NOTE | 2024-10-30 13:41 | PRE.ANES_ITS ---
ASA Classification* ASA Classification ASA Classification: 2 Assessment & Plan Anesthesia* Anesthesia Assessment Anesthesia Assessment: Discussed sedation and/or anesthesia options, risks, benefits, and alternatives with patient/parents/legal guardian/POA. Questions invited. The patient/parents/legal guardian/POA seems to understand and agrees to proceed with anesthesia plan. Reviewed the physical assessment, medical history, allergy history and patient home medications list prior to surgery/procedure/anesthetic and documented any changes. Performed airway and anesthesia risk assessments. Anesthesia Type Anesthesia Type: General Anesthesia Focused Assessment* Airway Assessment Mouth opens: >3 cm Mallampati Score: II Labs Anesthesia Preop lab: CBC WBC, (4.4-11.0) 10.9 K/mm3 09/29/24, 15:30 RBC, (4.2-5.4) 5.19 M/mm3 09/29/24, 15:30 Hgb, (12.0-15.0) 13.9 g/dL 09/29/24, 15:30 Hct, (37-47) 44.3 % 09/29/24, 15:30 Plt Count, (150-450) 420 K/mm3 09/29/24, 15:30 CHEMISTRY Potassium, (3.3-5.1) 4.7 mmol/L 09/29/24, 15:30 Sodium, (133-145) 139 mmol/L 09/29/24, 15:30 Magnesium, (1.6-2.6) 2.0 mg/dL 02/15/22, 15:18 BUN, (4-19) 15 mg/dL 09/29/24, 15:30 Creatinine, (0.70-1.20) 0.79 mg/dL 09/29/24, 15:30 Glucose, (70-99) 98 mg/dL 09/29/24, 15:30 TSH, (0.358-3.74) 2.33 uIU/mL 02/15/22, 15:18 COAG Pre-Assessment Diagnosis/Proposed Procedure Planned Operative Procedure(s): Hardware removal left foot. Anesthesia History Anesthesia History - [employer]: Anesthesia History - [employer] Hx Hospitalization No 10/29/24 13:16 Any Problems With Anesthesia No 10/29/24 13:16 Cholinesterase deficiency No 10/29/24 13:16 You/Your Family Experience No 10/29/24 13:16 fever (hyperthermia) with Relationship Recent Exposure to Contagious No 10/16/24 08:39 Disease Does patient have nerve No 10/29/24 13:16 stimulator Patient instructed to have device shut off --Does patient have Pacemaker or ICD? When Was Last Pacemaker Check QUESTION #4 FULL TEXT: You/Your Family Experience fever (hyperthermia) with Anesthesia Last Oral Intake Last Oral intake: Last Oral Intake NPO since Meds taken in AM with sips of water? Meds patient instructed to take am of surgery PONV PONV - [employer]: PONV - [employer] Female Yes 10/29/24 13:16 HX of Motion Sickness No 10/29/24 13:16 HX of N/V After Surgery Yes 10/29/24 13:16 Non-Smoker Yes 10/29/24 13:16 Duration of Surgery greater No 10/29/24 13:16 than 60 minutes Number of Risk Factors 3 10/29/24 13:16 PONV Score Moderate Risk 10/29/24 13:16 Height & Weight Height & Weight: Anesthesia: Height & Weight Height 5 ft 10/16/24 08:39 Respiratory Assessment Respiratory Assessment - [employer]: Respiratory Tract Infection Hx - [employer] Hx Respiratory Tract Infection No 10/29/24 13:16 STOP Sleep Apnea STOP Sleep Apnea - [employer]: STOP Sleep Apnea - [employer] Hx Hypertension No 10/29/24 13:16 Hx Sleep Apnea No 10/29/24 13:16 CPAP BIPAP Do you snore loudly (louder No 10/29/24 13:16 than talking or can be heard Do you often feel tired/ No 10/29/24 13:16 fatigued/ sleepy during daytime? Has anyone observed you stop No 10/29/24 13:16 breathing during sleep? STOP Results Negative 10/29/24 13:16 QUESTION #5 FULL TEXT : Do you snore loudly (louder than talking or can be heard through closed doors)? 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 Specify any problems Hx of Preganancy in last 3 No 10/29/24 13:16 Months Nurse Filling Out Transfusion [email or web address] 10/29/24 13:16 & Questions: Date: 10/29/24 10/29/24 13:16 Time: 13:17 10/29/24 13:16 Patient unable to answer at this time (ie. confused, unrespo /Reproduction History /Reproductive History - [employer]: /Reproductive Hx- [employer] Hx Now Gestational Age (in weeks): EDC: Hx Hx Para Hx Section SAB No 10/29/24 13:16 Active Medications Active Medications: Current Medications Generic Name Dose Route Start Last Admin Trade Name Freq PRN Reason Stop Dose Admin Clindamycin Phosphate 900 mg in 50 mls @ 75 mls/hr 10/30/24 15:15 Cleocin IV 10/30/24 15:54 INTRAOP ONE PFSH Medical History Teeth grinding Wears glasses Anxiety Diabetes Back pain Migraine headache Difficulty swallowing Constipation Non-smoker GERD (gastroesophageal reflux disease) Cerebral palsy Cognitive developmental delay g tube removal g tube thalfundoplication Asthma Home Medications ?Medication ?Instructions ?Recorded ?Last Taken ?Type albuterol sulfate 90 mcg/actuation 1 - 2 puff inhalati on Q6H PRN Sob 03/22/16 10/16/24 History aerosol inhaler &/Or Wheezing cetirizine 10 mg tablet 10 mg PO DAILY 03/22/1606/05 History fluticasone propionate 110 1 puff inhalation BID 03/2210/16/24 History mcg/actuation HFA aerosol inhaler fluticasone propionate 50 1 spray NASAL BID 03/22/16 0 10/16/24 History mcg/actuation nasal spray,suspension ibuprofen 200 mg tablet 200 mg PO Q6H PRN Fever 10/28 Unknown History sumatriptan 20 mg/actuation nasal 20 mg NS DAILY PRN M IGRAINES 03/22/16 Unknown History spray amitriptyline 25 mg tablet 25 mg PO QHS 04/04/2210/15 History cyanocobalamin (vitamin B-12) 1,000 mcg PO DAILY 04/0410/15/24 History 1,000 mcg tablet,extended release ivermectin 1 % topical cream 1 applic topical DAILY IN N FACE 04/04/22 10/15/24 History ketoconazole 2 % shampoo 1 applic topical DAILY PRN S CALP 04/04/22 Unknown History IRRITATION ketoconazole 2 % topical cream 1 applic topical DAILY PRN skin 04/04/22 Unknown History irritation metronidazole 0.75 % topical cream 1 applic topical DA CARTER PRN skin 04/04/22 10/16/24 History irritation Lactobacillus rhamnosus GG 10 1 cap PO DAILY 06/30/24 10/15/24 History billion cell capsule (Culturelle) cholecalciferol (vitamin D3) 50 50 mcg PO DAILY 10/15/24 History mcg (2,000 unit) tablet (D3 DOTS) methylphenidate HCl 30 mg biphasic 30 mg PO DAILY 06/1210/15/24 History 30-70 capsule,extended release polyethylene glycol 3350 17 17 g PO BID #850 grams 10/15/24 Rx gram/dose oral powder (Miralax) sennosides 25 mg tablet (Ex-Lax 25 mg PO QDAY 10/01/24 10/15/24 History Maximum Strength) albuterol sulfate 2.5 mg/3 mL 2.5 mg inhalation Q6H IN N 10/09/24 Unknown History (0.083 %) solution for nebulization shortness of breat h or wheezing ascorbic acid (vitamin C) 1,000 mg 1 g PO DAILY 90 day s #90 tabs 10/16/24 Unknown Rx tablet (Vitamin C) aspirin 81 mg tablet,delayed 81 mg PO DAILY 30 days #3 0 tabs 10/16/24 Unknown Rx release cholecalciferol (vitamin D3) 125 125 mcg PO DAILY 3 mo nths #90 tabs 10/16/24 Unknown Rx mcg (5,000 unit) tablet (Vitamin D3) cyclobenzaprine 10 mg tablet 10 mg PO TID muscle spasm 7 days 10/16/24 Unknown Rx #21 tabs docusate sodium 100 mg capsule 100 mg PO DAILY 10 days #10 caps 10/16/24 Unknown Rx (Colace) oxycodone 5 mg tablet 5 mg PO Q4H pain 7 days #42 tabs 10/16/24 Unknown Rx Allergy/AdvReac Type Severity Reaction Status Date / Time allantoin (From Orajel) Allergy Swelling Verified 10/29/24 13:15 benzalkonium chloride (From Allergy Swelling Verified 10/29/24 13:15 Orajel) benzocaine (From Orajel) Allergy Swelling Verified 10/29/24 13:15 carbamide peroxide (From Allergy Swelling Verified 10/29/24 13:15 Orajel) ceftriaxone (From Rocephin) Allergy Rash Verified 10/29/24 13:15 zinc chloride (From Orajel) Allergy Swelling Verified 10/29/24 13:15 methylphenidate (From AdvReac Unknown Verified 10/29/24 13:15 Ritalin) Family History Mother Asthma Hypertension CAD (coronary artery disease) Myocardial infarction A-fib Surgical History H/O eye surgery Hx of tonsillectomy Social History Smoking Status: Never smoker alcohol intake: never Review of Systems (Anesthesia) ROS Narrative System reviewed and no additional complaints, except as documented.
--- OUTSIDE RECORDS SUMMARY | 2024-10-30 13:58 | XMS RPT_ITS | CCD ---
Author Organization [facility] Care Team Providers Care Control Systems Designer Name Role Phone Dr. Mike Roy Primary Care Provider Dr. Mike Roy Referring Provider Dr. Avtar Kong Attending Provider Therese DECORATOR LIGHTING FIXTURES, DECORATOR LIGHTING FIXTURESGalenC Carlita Arora Attending Provider [phone] Aurelia Lopez Primary Care Provid er VASQUEZ ROY Referring VASQUEZ Medina Primary Care Unavailabl e LATONYA BURGOS Attending Unavailabl e LATONYA BURGOS Attending Unavailabl e VASQUEZ ROY Primary Care Unavailabl e REFERRED, SELF Referring Unavailable Dr. Mike Roy Primary Care Provider Dr. Mike Roy Referring Provider Dr. Avtar Kong Attending Provider Dr. Mike Roy Primary Care Provider Dr. Mike Roy Referring Provider Dr. Avtar Kong Attending Provider Dr. Vasquez Roy Primary Care Provider [phone] Dr. Vasquez Roy Referring Provider Antonio Gandara MD, Aurelia Arndt Primary Care Pro vider Dr. Vasquez Roy MD Primary Care Provider Dr. Vasquez Roy MD Referring Provider Dr. Avtar Kong DO Attending Provider Luann CROOK Dr. Avtar Referring Provider Kristin CROOK, Dr. Galarza Emergency Provider [phone] Vasquez Roy MD Primary Care Provider FIDELIA PUGH Attending Unavailable AURELIA LOPEZ Primary Care Liza luis carlosilareema Roy MD, Dr. Rea Primary Care Provider Dr. Michell Foster DO Attending Provider Kirill BECKER, Dr. Rea Attending Provider Kirill BECKER, Dr. Rea Referring Provider Christopher DECORATOR LIGHTING FIXTURES-CAdeola Attending Provider Mukesh DPM, Dr. Bauer Attending Provider Mukesh DPM, Dr. Bauer Referring Provider Ranney, Christopher Primary Care Unavailable Ranney, Christopher Attending Unavailable Ranney, Christopher Referring Unavailable Ranney, Christopher Primary Care Unavailable Ranney, Christlevi Attending Unavailable Ranney, Christopher Referring Unavailable Ranney, Christopher Primary Care Unavailable Juancarlos Mayorga Attending Unavailable Mayorga Juancarlos Referring Unavailable Friend, Avtar Attending Unavailable Ranney, Christopher Primary Care Unavailable Ranney, Christopher Referring Unavailable Ranney, Christopher Primary Care Unavailable Mayorga, Juancarlos Attending Unavailable Mayorga, Juancarlos Referring Unavailable Friend, Avtar Referring Unavailable Ranney, Christopher Primary Care Unavailable Friend, Avtar Attending Unavailable Friend, Avtar Referring Unavailable Ranney, Christopher Primary Care Unavailable Friend, Avtar Attending Unavailable Friend, Avtar Referring Unavailable Ranney, Christopher Primary Care Unavailable Friend, Avtar Attending Unavailable Ranney, Christopher Primary Care Unavailable Adeola White Attending Unavailable Ranney, Christopher Referring Unavailable Ranney, Christopher Primary Care Unavailable Michell Foster Attending Unavailable Allergies Allergy Classification Reported Allergen(s) Allergy Type Date of Onset Reaction(s) Facility (19 sources) Allantoin; Translations: [ALLANTOIN] Drug Allergy [address] [place] [address] (18 sources) Benzalkonium Drug Allergy 2 [facility] (20 sources) Benzocaine; Translations: [BENZOCAINE] Drug Allergy 8 [facility] Work Phone: (19 sources) carbamide peroxide; Translations: [CARBAMIDE PEROXIDE] Drug Allergy 0 Swelling [facility] (19 sources) cefTRIAXone; Translations: [CEFTRIAXONE] Drug Allergy 2 Rash [facility] (18 sources) Methylphenidate Drug Allergy 2 Unknown [facility] (19 sources) zinc chloride; Translations: [zinc chloride] Drug Allergy 2 Swelling [facility] (7 sources) cefTRIAXone; Translations: [CEFTRIAXONE SODIUM] Drug Allergy 8 [facility] Work Phone: (1 source) Benzalkonium; Translations: [BENZALKONIUM] Drug Allergy 0 [facility] Rep[facility] (1 source) Methylphenidate; Translations: [METHYLPHENIDATE HCL] Drug Allergy 2 [facility] Repository (1 source) Zinc; Translations: [ZINC] Drug Allergy 0 [facility] Repository (1 source) Allantoin Drug Allergy 5 [facility] (1 source) Benzalkonium Drug Allergy 5 [facility] (1 source) Benzocaine Drug Allergy 5 [facility] (1 source) carbamide peroxide Drug Allergy 5 [facility] (1 source) cefTRIAXone Drug Allergy 5 [facility] (1 source) Methylphenidate Drug Allergy 5 [facility] Repository Medications Current Medications Medication Drug Class(es) Dates Sig (Normalized) Sig (Original) albuterol 0.83 mg/ml inhalation solution (20 sources) beta2-Adrenergic Agonist Start: 10-09-2024 take 2.5 mg by inhalation every six hours as needed for wheezing Albuterol Sulfate 2.5 mg /3 mL (0.083 %) solution for nebulization Active 2.5 mg INHALATION EVERY 6 HOURS as needed for shortness of breath or wheezing October 09, 2024 12:00am Start: 07-31-2019 albuterol (PRO VENTIL) 2.5 mg /3 mL (0.083 %) nebulizer solution USE 3ML (2.5MG) BY NEBULIZER EVERY FOUR HOURS NEEDED FOR ASTHMA TREATMENT PLAN 07/31/2019 Active Start: 03-22-2016 Albuterol Sulf ate 1 PUFF inhaler Active 1 - 2 NMA INHALATION EVERY 6 HOURS NEEDED as needed for Sob &/Or Wheezing March 22, 2016 1:00am Start: 03-22-2016 take 1 puff(s) by in halation every six hours as needed Albuterol Sulfate Active 1 - 2 PUFF INHALATION EVERY 6 HOURS NEEDED March 22, 2016 1:00am albuterol HFA (P ROVENTIL HFA, VENTOLIN HFA) 90 mcg/actuation inhaler Inhale 2 Puffs as instructed. Active Comment on above: Inhale 2 Puffs as in structed. USE 3ML (2.5MG) BY N EBULIZER EVERY FOUR HOURS NEEDED FOR ASTHMA TREATMENT PLAN Albuterol Sulfate 1 PUFF inhaler (5 sources) Start: 03-22-19 Albuterol Sulfate 1 PUFF inhaler Active 1 - 2 NMA INHALATION EVERY 6 HOURS as needed for Sob &/Or Wheezing March 22, 2016 1:00am amitriptyline hydrochloride 25 mg oral tablet (20 sources) Tricyclic Antidepressant Start: 04-04-19 23 take 1 tablet by mouth at bedtime Amitriptyline 25 mg tablet Active 25 mg PO AT BEDTIME April 04, 2022 1:00am amitriptyline HC l (AMITRIPTYLINE ORAL) Take by mouth. Active amitriptyline HC l (AMITRIPTYLINE ORAL) Take by mouth. 0 Active Comment on above: Take by mouth. ascorbic acid 1000 mg oral tablet (1 source) Vitamin C Start: 10-16-2024 take 1 g by mouth once daily Ascorbic Acid (Vitamin C) (Vitamin C) 1,000 mg tablet Active 1 g PO DAILY 90 90 0 October 16, 2024 12:00am aspirin 81 mg delayed release oral tablet (1 source) Platelet Aggregation Inhibitor, Nonsteroidal Anti-inflammatory Drug Start: 10-16-2024 take 1 tablet by mouth once daily Aspirin 81 mg tablet,delayed release (DR/EC) Active 81 mg PO DAILY 30 30 0 October 16, 2024 12:00am B.ani/L.aci/L.chris/ L.plan/L.Alec (PROBIOTIC FORMULA ORAL) (6 sources) B.ani/L.aci/L.sa l/L .plan/L.Alec (PROBIOTIC FORMULA ORAL) Take by mouth. Active B.ani/L.aci/L.sa l/L.plan/L.Alec (PROBIOTIC FORMULA ORAL) Take by mouth. 0 Active Comment on above: Take by mouth. cetirizine hydrochloride 10 mg oral tablet (20 sources) Histamine-1 Receptor Antagonist Start: 03-22-19 take 1 tablet by mouth once daily Cetirizine 10 MG tablet Active 10 mg PO DAILY March 22, 2016 1:00am Comment on above: Take 10 mg by mouth once daily. cholecalciferol 0.125 mg oral tablet (6 sources) Vitamin D Start: 10-17-19 25 take 1 tablet by mouth once daily Cholecalciferol (Vitamin D3) (Vitamin D3) 125 mcg (5,000 unit) tablet Active 125 ug PO DAILY 90 90 0 October 16, 2024 12:00am Start: 06-30-2024 Cholecalcifero l (Vitamin D3) (D3 Dots) 50 mcg (2,000 unit) tablet Active 50 ug PO DAILY June 30, 2024 12:00am cyclobenzaprine hydrochloride 10 mg oral tablet (1 source) Muscle Relaxant Start: 10-16-2024 take 1 tablet by mouth three times daily Cyclobenzaprine 10 mg tablet Active 10 mg PO THREE TIMES A DAY 21 7 0 October 16, 2024 12:00am muscle spasm docusate sodium 100 mg oral capsule (19 sources) Start: 10-16-2024 take 1 capsule by mouth once daily Docusate Sodium (Colace) 100 mg capsule Active 100 mg PO DAILY 10 10 0 October 16, 2024 12:00am Start: 03-22-2016 End: 04-05-2021 take 3 capsules by mouth once daily Docusate Sodium 100 MG capsule Discontinued 300 mg PO DAILY March 22, 2016 1:00am April 05, 2021 4:47pm Start: 03-22-2016 End: 04-05-2021 take 300 mg by mouth once daily Docusate Sodium Discon tinued 300 MG PO DAILY March 22, 2016 1:00am April 05, 2021 4:47pm Ethinyl Estradiol / Levonorgestrel (20 sources) Progestin, Estrogen, Progestin-containing Intrauterine Device Start: 01-28-2024 take 1 tablet by mouth once daily L-Norgest and E Estradiol-E Estrad (DAYSEE) 0.15 mg-30 mcg (84)/10 mcg (7) Take 1 tablet by mouth once daily. Skip placebo pill and start new pack. Use continuous cycle. 91 tablet 3 01/28/2024 Active Start: 01-01-2023 End: 01-28-2024 take 1 tablet by mouth once daily L-Norgest and E Estradiol-E Estrad (DAYSEE) 0.15 mg-30 mcg (84)/10 mcg (7) Take 1 tablet by mouth once daily. 91 tablet 3 01/01/2023 01/28/2024 Discontinued Start: 01-01-2023 take 1 tablet by marisela th once daily L-Norgest and E Estradiol-E Estrad (DAYSEE) 0.15 mg-30 mcg (84)/10 mcg (7) Take 1 tablet by mouth once daily. 91 tablet 3 01/01/2023 Active Start: 01-22-2022 End: 12-28-2022 take 1 tablet by mouth once daily DAYSEE 0.15 mg-30 mcg (84)/10 mcg (7) TAKE 1 TABLET BY MOUTH DAILY 91 tablet 3 01/22/2022 12/28/2022 Discontinued Start: 01-22-2022 take 1 tablet by marisela th once daily DAYSEE 0.15 mg-30 mcg (84)/10 mcg (7) TAKE 1 TABLET BY MOUTH DAILY 91 tablet 3 01/22/2022 Active Start: 11-01-2021 End: 01-22-2022 take 1 tablet by mouth once daily L-Norgest and E Estradiol-E Estrad (DAYSEE) 0.15 mg-30 mcg (84)/10 mcg (7) Take 1 tablet by mouth once daily. 91 tablet 0 11/01/2021 01/22/2022 Discontinued Start: 03-22-2016 L Norgest/E.Es tradiol-E.Estrad Active 1 EACH PO DAILY March 22, 2016 6:03pm Start: 03-22-2016 End: 10-09-2024 take 1 tablet by mouth once daily L Norgest/E.Estradiol-E.Estrad 1 EACH tablets,dose pack,3 month Discontinued 1 NMA PO DAILY March 22, 2016 1:00am October 09, 2024 8:12am Start: 03-22-2016 take 1 tablet by marisela th once daily L Norgest/E.Estradiol-E.Estrad 1 EACH tablets,dose pack,3 month Active 1 NMA PO DAILY March 22, 2016 1:00am Start: 03-22-2016 L Norgest/E.Es tradiol-E.Estrad Active 1 EACH PO DAILY March 22, 2016 12:00am Start: 03-22-2016 L Norgest/E.Es tradiol-E.Estrad Active 1 EACH PO DAILY March 22, 2016 1:00am Comment on above: TAKE 1 TABLET BY MARISELA TH DAILY Take 1 tablet by marisela th once daily. EX-LAX, SENNOSIDES, ORAL (6 sources) EX-LAX, SENNOSID ES, ORAL Take by mouth. Active EX-LAX, SENNOSID ES, ORAL Take by mouth. 0 Active Comment on above: Take by mouth. 120 actuat fluticasone propionate 0.11 mg/actuat metered dose inhaler (20 sources) Corticosteroid Start: 09-23-2019 FLOVENT HFA 11 0 mcg/actuation inhaler 09/23/2019 Active Start: 03-22-2016 Fluticasone Pr opionate 1 SPRAY spray,suspension Active 1 NMA NASAL TWICE A DAY March 22, 2016 1:00am Start: 03-22-2016 Fluticasone Pr opionate 1 INHALER inhaler Active 1 NMA INHALATION TWICE A DAY March 22, 2016 1:00am Start: 03-22-2016 Fluticasone Pr opionate 1 INHALER inhaler Active 1 NMA INHALATION TWICE A DAY March 22, 2016 1:00am Start: 03-22-2016 take 1 puff(s) by in halation twice daily Fluticasone Propionate Active 1 PUFF INHALATION TWICE A DAY March 22, 2016 1:00am Start: 03-22-2016 Fluticasone Pr opionate Active 1 SPRAY NASAL TWICE A DAY March 22, 2016 1:00am FLUTICASONE PROP IONATE (FLONASE NASAL) Use in the nose. Active FLUTICASONE PROP IONATE (FLONASE NASAL) Use in the nose. 0 Active Comment on above: Use in the nose. ibuprofen 200 mg oral tablet (18 sources) Nonsteroidal Anti-inflammatory Drug Start: take 1 tablet by mouth every six hours as needed for fever Ibuprofen 200 MG tablet Active 200 mg PO EVERY 6 HOURS as needed for Fever March 22, 2016 1:00am ivermectin 10 mg/ml topical cream (14 sources) Antiparasitic, Pediculicide Start: Ivermectin 1 % cream Active 1 NMA TOPICAL DAILY as needed for FACE April 04, 2022 1:00am Start: 04-04-2022 Ivermectin 1 % cream Active 1 NMA TOPICAL April 04, 2022 1:00am Start: 04-04-2022 Ivermectin Act hillary 1 APPLIC TOPICAL April 04, 2022 12:00am Start: 04-04-2022 Ivermectin Act hillary 1 APPLIC TOPICAL April 04, 2022 1:00am ketoconazole 20 mg/ml topical cream (20 sources) Azole Antifungal Start: 04-04-2022 Ketoconazole 2 % shampoo Active 1 NMA TOPICAL DAILY as needed for SCALP IRRITATION April 04, 2022 1:00am Start: 04-04-2022 Ketoconazole 2 % cream Active 1 NMA TOPICAL DAILY as needed for skin irritation April 04, 2022 1:00am Start: 12-21-2021 ketoconazole ( NIZORAL) 2 % cream Apply to affected area once daily. 12/21/2021 Active lactobacillus rhamnosus gg [id number] unt oral capsule (5 sources) Start: 06-30-2024 take 10 capsules by mouth once daily Lactobacillus Rhamnosus Gg (Culturelle) 10 billion cell capsule Active 1 NMA PO DAILY June 30, 2024 12:00am 30/70 release 24 hr methylphenidate hydrochloride 30 mg extended release oral capsule (20 sources) Central Nervous System Stimulant Start: 06-30-2024 Methylphenidate Hcl 30 mg capsule, ER biphasic 30-70 Active 30 mg PO DAILY June 30, 2024 12:00am Start: 04-04-2022 End: 06-30-2024 Methylphenidate Hcl 20 mg ca psule, ER biphasic 30-70 Discontinued 20 mg PO EVERY MORNING 0 April 04, 2022 1:00am June 30, 2024 2:58pm methylphenidate ER (METADATE ER) 20 mg ER tablet Take 20 mg by mouth. Active Comment on above: Take 20 mg by mouth. metroNIDAZOLE 0.0075 mg/mg topical gel (16 sources) Nitroimidazole Antimicrobial Start: 01-22-2024 metroNIDAZOLE (METROGEL) 0.75 % Topical Gel Apply to affected area two times a day. 01/22/2024 Active Start: 04-04-2022 Metronidazole 0.75 % cream Active 1 NMA TOPICAL DAILY as needed for skin irritation April 04, 2022 1:00am oxyCODONE hydrochloride 5 mg oral tablet (1 source) Opioid Agonist Start: 10-16-2024 take 1 tablet by mouth every four hours Oxycodone 5 mg tablet Active 5 mg PO Q4H 42 7 0 October 16, 2024 Other acute postprocedural pain Other acute postprocedural pain pain polyethylene glycol 3350 42530 mg powder for oral solution (4 sources) Osmotic Laxative Start: 10-01-2024 Polyethylene Glycol 3350 (Miralax) 17 gram/dose powder Active 17 g PO TWICE A DAY 850 2 October 01, 2024 12:00am Probiotics (18 sources) Start: 03-22-2016 take 1 tablet by mouth once daily Probiotics Active 1 TABLET PO DAILY March 22, 2016 6:03pm Start: 03-22-2016 End: 06-30-2024 Probiotics Discontinued 1 {t bl} PO DAILY March 22, 2016 1:00am June 30, 2024 2:57pm Start: 03-22-2016 Probiotics Act hillary 1 {tbl} PO DAILY March 22, 2016 1:00am Start: 03-22-2016 take 1 tablet by marisela th once daily Probiotics Active 1 TABLET PO DAILY March 22, 2016 12:00am Start: 03-22-2016 take 1 tablet by marisela th once daily Probiotics Active 1 TABLET PO DAILY March 22, 2016 1:00am sennosides, retirement 25 mg oral tablet (9 sources) Start: 10-01-2024 take 1 tablet by mouth once daily Sennosides (Ex-Lax Maximum Strength) 25 mg tablet Active 25 mg PO daily October 01, 2024 12:00am Start: 06-30-2024 End: 10-01-2024 take 1 tablet by mouth once daily Sennosides (Laxative (Sennosides)) 15 mg tablet Discontinued 15 mg PO DAILY June 30, 2024 12:00am October 01, 2024 3:38pm SUMAtriptan 20 mg/actuat nasal spray (20 sources) Serotonin-1b and Serotonin-1d Receptor Agonist Start: 03-22-2016 Sumatriptan 20 MG spray,non-aerosol Active 20 mg NS DAILY as needed for MIGRAINES March 22, 2016 1:00am sumatriptan succ inate (IMITREX ORAL) Take by mouth. Active sumatriptan succ inate (IMITREX ORAL) Take by mouth. 0 Active Comment on above: Take by mouth. vitamin b12 1 mg extended release oral tablet (18 sources) Vitamin B12 Start: 04-04-2022 take 1 tablet by mouth once daily Cyanocobalamin (Vitamin B-12) 1,000 mcg tablet extended release Active 1000 ug PO DAILY April 04, 2022 1:00am Start: 04-04-2022 Cyanocobalamin (Vitamin B-12) 1,000 mcg tablet extended release Active NMA PO April 04, 2022 1:00am Start: 12-18-2021 cyanocobalamin (VITAMIN B-12) 1,000 mcg tab 12/18/2021 Active Completed/Discontinued Medications Medication Drug Class(es) Dates Sig (Normalized) Sig (Original) amoxicillin 875 mg / clavulanate 125 mg oral tablet (18 sources) Penicillin-class Antibacterial Start: 9 End: 9 take 1 tablet by mouth every twelve hours Amoxicillin-Pot Clavulanate 875 MG tablet Discontinued 875 mg PO Q12H 20 0 April 13, 2018 1:00am February 06, 2019 2:44pm calcium polycarbophil 625 mg oral tablet (18 sources) Start: 7 End: 2 take 625 mg by mouth once daily Fibercon Discontinued 625 mg PO DAILY March 22, 2016 1:00am April 05, 2021 4:47pm citalopram 10 mg oral tablet (18 sources) Serotonin Reuptake Inhibitor Start: 0 End: 3 take 1 tablet by mouth at bedtime Citalopram 10 MG tablet Discontinued 10 mg PO AT BEDTIME March 31, 2019 1:00am April 04, 2022 4:31pm cyproheptadine hydrochloride 4 mg oral tablet (18 sources) Start: 7 End: 3 take 4 mg by mouth once daily Periactin Discontinued 4 mg PO DAILY March 22, 2016 1:00am April 04, 2022 4:34pm dexlansoprazole 60 mg delayed release oral capsule (18 sources) Proton Pump Inhibitor Start: 9 End: 2 take 1 capsule by mouth every other day Dexlansoprazole 60 MG capsule,biphase delayed releas Discontinued 60 mg PO EVERY OTHER DAY April 12, 2018 1:00am April 05, 2021 4:47pm dexmethylphenidate hydrochloride 10 mg oral tablet (20 sources) Central Nervous System Stimulant Start: 7 End: 3 take 1 tablet by mouth once daily Dexmethylphenidate 10 MG tablet Discontinued 10 mg PO DAILY March 22, 2016 1:00am April 04, 2022 4:31pm End: 01-28-2024 take 1 capsule by mouth twice daily dexmethylphenidate (FOCALIN XR) 10 mg MP50 Capsule ER Take 1 capsule by mouth twice daily. 01/28/2024 Discontinued (Course of therapy completed) Comment on above: Take 1 capsule by [facility] twice daily. dicyclomine hydrochloride 10 mg oral capsule (18 sources) Anticholinergic Start: 020 End: 022 take 2 capsules by mouth three times daily before mealtime Dicyclomine 10 MG capsule Discontinued 20 mg PO THREE TIMES DAILY BEFORE MEALS 20 0 March 31, 2019 1:00am April 05, 2021 4:47pm Start: 03-31-2019 End: 04-05-2021 take 20 mg by mouth three times daily before mealtime Dicyclomine Discontinued 20 MG PO THREE TIMES DAILY BEFORE MEALS 20 March 31, 2019 1:00am April 05, 2021 4:47pm 12 hr hyoscyamine sulfate 0.375 mg extended release oral tablet (20 sources) Start: 03-26-2021 End: 04-05-2021 take 1 tablet by mouth every hour Hyoscyamine Sulfate 0.375 mg tablet extended release 12 hr Discontinued 0 .ROUTE .COMPLEX 55 2 March 26, 2021 2:08pm April 05, 2021 4:47pm TAKE 1 TABLET BY MOUTH EVERY TWELVE HOURS Start: 03-26-2021 End: 04-05-2021 take 1 tablet by mouth once Hyoscyamine Sulfate Discon tinued 0 .ROUTE .COMPLEX 55 March 26, 2021 2:08pm April 05, 2021 4:47pm TAKE 1 TABLET BY MOUTH EVERY TWELVE HOURS Start: 11-25-2020 End: 03-26-2021 take 1 tablet by mouth every twelve hours Hyoscyamine Sulfate 0.375 mg tablet extended release 12 hr Discontinued 0.375 mg PO Q12H 60 2 December 26, 2020 11:06am March 26, 2021 2:08pm lactulose 667 mg/ml oral solution (20 sources) Osmotic Laxative Start: 03-31-2019 End: 04-05-2021 take 10 g by mouth once daily Lactulose 10 GM/15 ML solution Discontinued 10 g PO DAILY March 31, 2019 1:00am April 05, 2021 4:47pm Start: 03-22-2016 End: 02-06-2019 take 1 mL by mouth once daily Lactulose 10 GM/15 ML so lution Discontinued 10 mL PO DAILY March 22, 2016 1:00am February 06, 2019 2:47pm linaclotide 0.145 mg oral capsule (20 sources) Guanylate Cyclase-C Agonist Start: 04-14-2024 End: 10-01-2024 take 1 capsule by mouth twice daily Linaclotide (Linzess) 145 mcg capsule Discontinued 145 ug PO TWICE A DAY 60 0 April 14, 2024 1:00am October 01, 2024 3:37pm Start: 02-11-2024 End: 06-30-2024 take 1 capsule by mouth once daily in the morning Linaclotide (Linzess) 290 mcg capsule Discontinued 290 ug PO EVERY MORNING 30 3 February 11, 2024 11:58am June 30, 2024 3:02pm Start: 11-08-2023 End: 02-11-2024 take 1 capsule by mouth twice daily Linaclotide (Linzess) 290 mcg capsule Discontinued 290 ug PO TWICE A DAY 60 0 November 08, 2023 12:00am February 11, 2024 11:58am Start: 01-25-2021 End: 04-05-2021 take 0.5 capsule by mouth every hour at mealtime Linaclotide (Linzess) 290 mcg capsule Discontinued 290 ug PO DAILY 30 January 25, 2021 1:00am April 05, 2021 4:47pm Take half an hour before first meal Start: 08-25-2019 take 1 capsule by mo ut once daily in the morning LINZESS 145 mcg capsule Take 145 mcg by mouth daily at 6 am. 08/25/2019 Active montelukast 10 mg oral tablet (18 sources) Leukotriene Receptor Antagonist Start: 03-31-2019 End: 04-04-2022 take 1 tablet by mouth at bedtime Montelukast 10 MG tablet Discontinued 10 mg PO AT BEDTIME March 31, 2019 1:00am April 04, 2022 4:34pm ondansetron 4 mg disintegrating oral tablet (18 sources) Serotonin-3 Receptor Antagonist Start: 04-13-2018 End: 02-06-2019 take 1 tablet by mouth every eight hours as needed for nausea Ondansetron 4 MG tablet Discontinued 4 mg PO EVERY 8 HOURS NEEDED as needed for Nausea April 13, 2018 1:00am February 06, 2019 2:46pm Tenapanor (Ibsrela) 50 mg tablet (8 sources) Start: 08-21-2023 End: 04-03-2024 take 1 tablet by mouth once daily at dinner Tenapanor (Ibsrela) 50 mg tablet Discontinued 50 mg PO TWICE A DAY 60 3 August 21, 2023 12:00am April 03, 2024 4:38pm must administer immediately before first meal of day/breakfast and dinner Start: 08-21-2023 End: 04-03-2024 take 1 tablet by mouth once daily at dinner Tenapanor (Ibsrela) 50 mg tablet Discontinued 50 mg PO TWICE A DAY 60 August 21, 2023 12:00am April 03, 2024 4:38pm must administer immediately before first meal of day/breakfast and dinner Problems Active Problems Problem Classification Problem Date Documented Da te Episodic/Chronic Acquired foot deformities (1 source) Acquired hallux malleus; Translations: [Other hammer toe(s) (acquired), left foot] 10-16-2024 Chronic Acute bronchitis (18 sources) Acute bronchitis; Translations: [Acute bronchitis, unspecified] 02-06-2019 Episodic Biliary tract disease (18 sources) Cholecystitis; Translations: [Cholecystitis, unspecified] 11-25-2020 Episodic Contraceptive and procreative management (2 sources) Patient encounter status; Translations: [Encounter for other general counseling and advice on contraception] 12-25-2022 Episodic Developmental disorders (8 sources) Intellectual disability; Translations: [Unspecified intellectual disabilities] 11-01-2021 Chronic Esophageal disorders (20 sources) Gastroesophageal reflux disease; Translations: [Gastro-esophageal reflux disease without esophagitis] Chronic Comment on above: DIET CONTROLLED Genitourinary symptoms and ill-defined conditions (1 source) Dysuria; Translations: [Dysuria] Onset: Episodic Other connective tissue disease (1 source) Acquired short Achilles tendon; Translations: [Short Achilles tendon (acquired), left ankle] 10-16-2024 Episodic Other connective tissue disease (1 source) Foot pain; Translations: [Pain in left foot] 10-16-2024 Episodic Other connective tissue disease (1 source) Short Achilles tendon (acquired), left ankle; Translations: [Short Achilles tendon (acquired), left ankle] Onset: Episodic Other female genital disorders (2 sources) Suppression of menstruation; Translations: [Other specified conditions associated with female genital organs and menstrual cycle] 12-25-2022 Episodic Other gastrointestinal disorders (20 sources) Irritable bowel syndrome characterized by constipation; Translations: [Irritable bowel syndrome with constipation] 12-23-2020 Chronic Other gastrointestinal disorders (7 sources) Irritable bowel syndrome with constipation; Translations: [Irritable bowel syndrome] Chronic Other gastrointestinal disorders (18 sources) Constipation; Translations: [Constipation, unspecified] 10-28-2020 Episodic Other lower respiratory disease (18 sources) Cough; Translations: [Cough] 02-06-2019 Episodic Other nervous system disorders (1 source) Acute postoperative pain; Translations: [Other acute postprocedural pain] 10-16-2024 Episodic Unclassified (1 source) Please follow-up at your already scheduled postoperative appointment. Past or Other Problems Problem Classification Problem Date Documented Date Episodic/Chronic Abdominal pain (19 sources) Epigastric pain; Translations: [Epigastric pain] Onset: 5 03-23-2016 Episodic Nonspecific chest pain (6 sources) Anterior chest wall pain; Translations: [Other chest pain] Onset: 5 06-30-2024 Episodic Unclassified (17 sources) g tube 09-06-2021 Comment on above: Thalfundoplication Unclassified (17 sources) g tube removal 09-06-2021 Comment on above: 2018 Unclassified (17 sources) thalfundoplication 09-06-2021 Comment on above: 1997 Results Test Name Value Interpretation Reference Range Facility Foot 2 Viewson 10-16-2024 Foot 2 Views [facility] Imaging Services [address] [place], [place] [address] Foot 2 Views MR#: [id number] Acct: [id number] Name: ROCHELLE HOWARD Rep #: [id number] : 1995 F 29 From: Vicnete Huerta MD PCP: Dr. Vasquez Roy MD Status: [facility] [place] [place] Study: Foot 2 Views Date of Exam: 10/16/24 Exam# [id number] Ordering Dr: Juancarlos Mayorga DPM PROCEDURE: FOOT 2 VIEWS 10/16/2024 REASON FOR EXAM: ENDOSCOPIC GASTROCNEMIUS RECESSION TECHNIQUE: Procedure Code: RADFO2 Modality: DX Procedure: FOOT 2 VIEWS Laterality: FINDINGS: Intraoperative fluoroscopy for an endoscopic gastrocnemius recession was performed. 107.0 seconds of fluoroscopic time. 0.76 mGy. See procedure report for full details. RAD/Foot 2 Views IMPRESSION: As above. Reading Location: [address] CC: AMIE Mayorga; Dr. Vasquez Roy MD Supervisor Paper Machine: Signed [facility] MR/POSTOP.ANEon 10-16-2024 MR/POSTOP.[facility] Medical Records Department [address] [place] [address] Anesthesia Postop Eval I 10/16/24 1238 MR#: [id number] Acct: [id number] Name: BLADIMIR HOWARDMESERET BAUM Rep #: [id number] : 1995 29 From: Mando Ulloa CRNA PCP: Dr. Vasquez Roy MD Status:[facility] Y Race: C Location: [place] [address] Anesthesia: Postop Eval I Current Vital Signs Temperature: 97 F Pulse Rate: 83 Blood Pressure: 113/73 Respiratory Rate: 16 Pulse Ox: 100 Assessment Airway patent: Yes Spontaneous unlabored respirations: Yes nausea: No Vomiting: No Anesthesia Complication: No Fluid Hydration Crystalloid volume administer (ml): 1,500 Total IV fluid infused: 1,500 Progress Note Anesthesia document: Postop Eval 1 completed: Yes 10/16/24 1239 Date Mando Ulloa SHOP FOREMAN Cosigner Signature: Date CC: Signed Normal [facility] MR/[id number] 10-16-2024 [facility] Medical Records Department [address] [place] [address] Anesthesia Postop Eval II 10/16/242121 MR#: [id number] Acct: [id number] Name: ROCHELLE HOWARD Rep #: [id number] : 1995 29 From: Andrei Delgado MD PCP: Dr. Vasuqez Roy MD Status:[facility] [place] [place] Y Race: C Location[place] [facility] Anesthesia Postop Eval I Sum Postop Eval Completion status Anesthesia document: Postop Eval 1 completed: Yes Anesthesia Postop Eval I Summary Anesthesia Postop Eval I Summary: Anesthesia Postop Eval I: Assessment Summary Airway patent Yes 10/16/24 12:38 SHOP [email or web address].TNES Spontaneous unlabored Yes 10/16/24 12:38 SHOP FOREMAN.TNES respirations Mental status nausea No 10/16/24 12:38 SHOP FOREMAN.TNES Vomiting No 10/16/24 12:38 SHOP FOREMAN.TNES Anesthesia Postop Eval I: Fluid Summary Crystalloid volume administer 1,500 10/16/24 12:38 SHOP FOREMAN.TNES (ml) Colloids volume administered ( ml) Blood Product volume administered (ml) Total IV fluid infused 1,500 10/16/24 12:38 SHOP [email or web address].TNES Anesthesia Postop Eval I: Summary Notes Anesthesia Complication No 10/16/24 12:38 SHOP [email or web address].TNES Anesthesia Complication Comment: Post-operative progress note Anesthesia: Postop Eval II Evaluation Mental status: Awake and Calm Pain Level: 1 nausea: No Vomiting: No Complications Anesthesia Complication: No 10/16/242122 Date Andrei Iveyignalex Signature: Date CC: Signed Normal [facility] Operative Reporton Operative Report [facility] Medical Records Department [address] [place] [address] Operative Report 10/16/24 0954 MR#: [id number] Acct: [id number] Name: ROCHELLE HOWARD Rep #: [id number] : 1995 29 From: Juancarlos Mayorga DPM PCP: Dr. Vasquez Roy MD Status:[facility] [place] [place] Location: [facility] Problems Associated Problem List Diagnoses (1) Short Achilles tendon (acquired), left ankle: (2) Other hammer toe(s) (acquired), left foot: (3) Pain in left foot: Operative Report (Standard) Operative Information Date of Procedure: 10/16/24 Pre-Operative Diagnosis: 1. Short Achilles tendon, left lower extremity 2. Hammertoes, 2nd, 3rd, 4th and 5th digits, left foot 3. Pain, left foot Post-Operative Diagnosis: 1. Short Achilles tendon, left lower extremity 2. Hammertoes, 2nd, 3rd, 4th and 5th digits, left foot 3. Pain, left foot Surgery/Procedure Performed: Procedure #1: Bone marrow aspirate concentrate harvest, left lower extremity Procedure #2: Endoscopic gastroc recession, left lower extremity Procedure #3: Second digit proximal interphalangeal joint arthrodesis, left foot Procedure #4: Third digit proximal interphalangeal joint arthrodesis, left foot Procedure #5: Flexor tenotomy's, 2nd, 3rd, 4th and 5th digit, left foot Procedure #6: 2nd, 3rd, 4th and 5th metatarsophalangeal joint extensor/capsulotomies, left foot cosmetology instructor: No Type of Anesthesia: General/Regional RN Documented Start/Stop Times: Operation Date: 10/16/24 09:45 Case Time Into Pre-Op 10/16/24 08:16 Out of Pre-Op 10/16/24 09:52 Anesthesia Start 10/16/24 09:53 Into Room 10/16/24 09:53 Procedure Start 10/16/24 10:13 Procedure End 10/16/24 12:27 Anesthesia End 10/16/24 12:34 Out of Room 10/16/24 12:34 Into Recovery 10/16/24 12:35 Out of Recovery 10/16/24 13:25 Into Phase II Recovery 10/16/24 13:27 Out of Phase II 10/16/24 14:30 Procedure Start Time: 10:13 Procedure Stop Time: 12:27 Select all DRAINS/GRAFTS/IMPLANTS that apply: None Special Medications: Per anesthesia Estimated Blood Loss: 30 cc Fluids Replaced: Per anesthesia Specimen collected: No Description of surgery: Indications For Operation: Ms. Hurst is a [age]-year-old female who was admitted to [facility] for left foot surgery. Patient is well-known to my private office and has been treated conservatively secondary to hammertoe contractures as well as tight Achilles tendon to the left lower extremity. We have exhausted all conservative treatment consisting of shoe gear modification, stretching and home physical therapy. Patient does suffer from a mild case of CP and does have some tight contracture to the posterior muscle group that has been causing pain for some time. Once we have exhausted all conservative treatment I started discussed with the parents the need for surgical intervention to help get the patient a more rectus foot so that we can brace comfortably to decrease her falls which they are all understanding of. We elected move forward with the above procedure with all risk and benefits discussed with the patient great detail. Chart reviewed and consent signed. Patient did have surgical consultation and aware of all complications. Due to contracture of the lesser digits as well as contracture of the posterior muscle group to the left lower extremity it was deemed necessary at this time to perform the above procedure to help give the patient more rectus foot so that we can brace and decrease her falls as well as decrease her constant pain. The nature of the problem, anticipated procedures, postop recovery/convalences and risk/complications include but not limited to infection, wound healing complications, digital amputation, hypertrophic scarring, numbness, tingling, chronic pain, CRPS, over and under correction, recurrence of deformity, DVT and or PE and the need for further surgery have been discussed in great detail with the patient. All questions have been answered to the patient's satisfaction. There are no guarantees given as to the outcome of the procedure. Description of Procedure: Under mild sedation, the patient was brought into the operating room and placed on the operating table in supine position. Once the patient was under general anesthesia with laryngeal mask airway, the left lower extremity was blocked by anesthesia in the PACU with a adductor and popliteal block prior to her procedure please see anesthesia notes for further detail. Next, a well-padded thigh tourniquet was applied to the left lower extremity. Next, the left lower extremity was prepped and draped in normal aseptic manner. Next, a timeout was then undertaken verifying the correct patient, extremity, visibility of preoperative markings, availability of the equipment. Procedure #1: Bone marrow aspirate concentrate harvest, left lower (more content not included)... Normal [facility] Urine Cultureon 10-12-2024 [facility] Order Date: 10/08/24 Order Info: 630-4 - CUUR Below infection level. Mixed Gram Pos Gram Neg Org [place] Count 1000-10,000 MIXC Mixed contaminants. Submit a new specimen if indicated. Normal [facility] Comment on above: Performed By: #### M 100.0180 ####[facility] [address] [facility]. [place], [place], [id number] MR/PAT.ANEon 10-09-2024 MR/PAT.NOLAN [facility] Medical Records Department [address] [place] [address] PAT - Anesthesia 10/09/24 0838 MR#: [id number] Acct: [id number] Name: ROCHELLE HOWARD Rep #: [id number] : 1995 29 From: Misael Aguilar MD PCP: Dr. Vasquez Roy MD Status:PRE [facility] Y Race: C Location: [facility] Pre-Assessment Diagnosis/Proposed Procedure Planned Operative Procedure(s): TBD Anesthesia History Anesthesia History - assembler flexible leads: Anesthesia History - assembler flexible leads Hx Hospitalization No 10/09/24 08:14 Any Problems With Anesthesia No 10/09/24 08:14 Cholinesterase deficiency No 10/09/24 08:14 You/Your Family Experience No 10/09/24 08:14 fever (hyperthermia) with Relationship Recent Exposure to Contagious Disease Does patient have nerve No 10/09/24 08:14 stimulator Patient instructed to have device shut off --Does patient have Pacemaker or ICD? When Was Last Pacemaker Check QUESTION #4 FULL TEXT: You/Your Family Experience fever (hyperthermia) with Anesthesia Last Oral Intake Last Oral intake: Last Oral Intake NPO since Meds taken in AM with sips of water? Meds patient instructed to take am of surgery PONV PONV - assembler flexible leads: PONV - assembler flexible leads Female Yes 10/09/24 08:14 HX of Motion Sickness No 10/09/24 08:14 HX of N/V After Surgery No 10/09/24 08:14 Non-Smoker Yes 10/09/24 08:14 Duration of Surgery greater Yes 10/09/24 08:14 than 60 minutes Number of Risk Factors 3 10/09/24 08:14 PONV Score Moderate Risk 10/09/24 08:14 Height Weight Height Weight: Anesthesia: Height Weight Height 5 ft 10/01/24 15:48 Respiratory Assessment Respiratory Assessment - assembler flexible leads: Respiratory Tract Infection Hx - assembler flexible leads Hx Respiratory Tract Infection No 10/09/24 08:14 STOP Sleep Apnea STOP Sleep Apnea - assembler flexible leads: STOP Sleep Apnea - assembler flexible leads Hx Hypertension No 10/09/24 08:14 Hx Sleep Apnea No 10/09/24 08:14 CPAP BIPAP Do you snore loudly (louder No 10/09/24 08:14 than talking or can be heard Do you often feel tired/ No 10/09/24 08:14 fatigued/ sleepy during daytime? Has anyone observed you stop No 10/09/24 08:14 breathing during sleep? STOP Results Negative 10/09/24 08:14 QUESTION #5 FULL TEXT : Do you snore loudly (louder than talking or can be heard through closed doors)? 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 Specify any problems Hx of Preganancy in last 3 No 10/09/24 08:14 Months Nurse Filling Out Transfusion DSCHRIBER 10/09/24 08:14 Questions: Date: 10/09/24 10/09/24 08:14 Time: 08:15 10/09/24 08:14 Patient unable to answer at this time (ie. confused, unrespo /Reproduction History /Reproductive History - assembler flexible leads: /Reproductive Hx- assembler flexible leads Hx Now No 10/09/24 08:14 Gestational Age (in weeks): EDC: Hx Hx Para Hx Section SAB No 10/09/24 08:14 PFS Medical History (Updated 10/09/24 @ 08:23 by Paige Echeverria) Teeth grinding Wears glasses Anxiety Diabetes Back pain Migraine headache Difficulty swallowing Constipation Non-smoker GERD (gastroesophageal reflux disease) Cerebral palsy Cognitive developmental delay g tube removal g tube thalfundoplication Asthma Home Medications ???Medication ???Instructions ???Recorded ???Last Taken ???Type albuterol sulfate 90 mcg/actuation 1 - 2 puff inhalation Q6H PRN So b 03/22/16 Unknown History aerosol inhaler /Or Wheezing cetirizine 10 mg tablet 10 mg PO DAILY 03/22/16 06/30/24 H istory fluticasone propionate 110 1 puff inhalation BID 03/22/16 History mcg/actuation HFA aerosol inhaler fluticasone propionate 50 1 spray NASAL BID 03/22/16 5 History mcg/actuation nasal spray,suspension ibuprofen 200 mg tablet 200 mg PO Q6H PRN Fever 03/22/16 U nknown History sumatriptan 20 mg/actuation nasal 20 mg NS DAILY SD (more content not included)... Normal [facility] Urine cultureOrdered By: Chr roxanne Roy on 10-08-2024 Bacteria identified Cx Nom (U) Mixed Gram Pos & Gram Neg Org Abnormal [facility] Gastroenterology Visit Repor ton 10-01-2024 Gastroenterology Visit Report [facility] Gastroenterology [address] [place] [address] OFFICE VISIT Date of Service: 10/01/24 MR#: [id number] Acct: [id number] Name: ROCHELLE HOWARD Rep #: [id number] : 1995 Provider: VELMA sewell Age/Sex: 29/F Location: [facility] Status: Signed Intake Vital Signs 12/23/20 15:36 06/30/24 12:58 10/01/24 15:48 Height 5 ft 5 ft 5 ft Weight: 116 lb 2 oz BMI 22.6 BP 117/58 L Respiration 16 Pulse 88 Temp 97.6 F L Temp Source Temporal Pulse Oximetry (%) 99 Oxygen Delivery Method room air Intake Visit Reasons: 6 M FU Chief Complaint: constipation f/u Production Trainer Required: No Accompanied by: Mother Is patient in pain?: No Allergies allantoin (From Orajel) Allergy (Verified 10/16/24 08:36) Swelling benzalkonium chloride (From Orajel) Allergy (Verified 10/16/24 08:36) Swelling benzocaine (From Orajel) Allergy (Verified 10/09/24 08:11) Swelling carbamide peroxide (From Orajel) Allergy (Verified 10/16/24 08:36) Swelling ceftriaxone (From Rocephin) Allergy (Verified 10/16/24 08:36) Rash zinc chloride (From Orajel) Allergy (Verified 10/16/24 08:36) Swelling methylphenidate (From Ritalin) Adverse Reaction (Verified 10/16/24 08:36) Unknown Medications ???Medication ???Instructions ???Recorded ???Confirmed ???Type albuterol sulfate 90 mcg/actuation 1 - 2 puff inhalation Q6H PRN So b 03/22/16 10/16/24 History aerosol inhaler /Or Wheezing cetirizine 10 mg tablet 10 mg PO DAILY 03/22/16 10/16/24 H istory fluticasone propionate 110 1 puff inhalation BID 03/22/1607/05 History mcg/actuation HFA aerosol inhaler fluticasone propionate 50 1 spray NASAL BID 03/22/16 5 History mcg/actuation nasal spray,suspension ibuprofen 200 mg tablet 200 mg PO Q6H PRN Fever 03/22/16 0 10/16/24 History sumatriptan 20 mg/actuation nasal 20 mg NS DAILY PRN MIGRAINES 10/2810/16/24 History spray amitriptyline 25 mg tablet 25 mg PO QHS 04/04/22 10/16/24 His tory cyanocobalamin (vitamin B-12) 1,000 mcg PO DAILY 04/04/22 History 1,000 mcg tablet,extended release ivermectin 1 % topical cream 1 applic topical DAILY PRN FACE 10/16/24 History ketoconazole 2 % shampoo 1 applic topical DAILY PRN SCALP 0 04/04/22 10/16/24 History IRRITATION ketoconazole 2 % topical cream 1 applic topical DAILY PRN skin 10/16/24 History irritation metronidazole 0.75 % topical cream 1 applic topical DAILY PRN skin 04/04/22 10/16/24 History irritation Lactobacillus rhamnosus GG 10 1 cap PO DAILY 06/30/24 10/16/24 H istory billion cell capsule (Culturelle) cholecalciferol (vitamin D3) 50 50 mcg PO DAILY 06/30/24 10/16/24 History mcg (2,000 unit) tablet (D3 DOTS) methylphenidate HCl 30 mg biphasic 30 mg PO DAILY 06/30/24 10/16/24 History 30-70 capsule,extended release polyethylene glycol 3350 17 17 g PO BID #850 grams 10/01/24 Rx gram/dose oral powder (Miralax) sennosides 25 mg tablet (Ex-Lax 25 mg PO QDAY 10/01/24 10/16/24 Hi story Maximum Strength) albuterol sulfate 2.5 mg/3 mL 2.5 mg inhalation Q6H PRN 10/09/24 10/16/24 History (0.083 %) solution for nebulization shortness of breath or wheezing ascorbic acid (vitamin C) 1,000 mg 1 g PO DAILY 90 days #90 tabs Rx tablet (Vitamin C) aspirin 81 mg tablet,delayed 81 mg PO DAILY 30 days #30 tabs Rx release cholecalciferol (vitamin D3) 125 125 mcg PO DAILY 3 months #90 tabs 10/16/24 Rx mcg (5,000 unit) tablet (Vitamin D3) cyclobenzaprine 10 mg tablet 10 mg PO TID muscle spasm 7 days 0 10/16/24 Rx #21 tabs docusate sodium 100 mg capsule 100 mg PO DAILY 10 days #10 caps 0 10/16/24 Rx (Colace) oxycodone 5 mg tablet 5 mg PO Q4H pain 7 days #42 tabs 0 10/16/24 Rx PFSH Medical History (Updated 10/16/24 @ 14:[address] Juancarlos Mayorga, AMIE) Teeth grinding Wears glasses Anxiety Diabetes Back pain Migraine headache Difficulty swallowing Constipation Non-smoker GERD (gastroesophageal reflux disease) Cerebral palsy Cognitive developmental delay g tube removal g tube thalfundoplication Asthma Surgical History H/O eye surgery Hx of tonsillectomy Family History Mother Asthma Hypertension CAD (coronary artery disease) Myocardial infarction A-fib Social History Smoking Status: Unknown if ever smoked alcohol intake: never HPI HPI Chief Complaint: constipation f/u Details: OV w/ Friend 04/03/2024 (1) Irritable bowel syndrome with constipation: Status: Acute Plan: She d (more content not included)... Normal [facility] Absolute lymphocyte countOrd ered By: Vasquez Roy on 09-29-2024 Lymphocytes Auto (Unsp spec) [#/Vol] 3.35 10*3/uL 0.83-4.51 [facility] Absolute neutrophil countOrd ered By: Vasquez Roy on 09-29-2024 Neutrophils (Bld) [#/Vol] 6.7 10*3/uL 2.0-7.7 [facility] Anion gap in Serum or Plasma Ordered By: Vasquez Roy on 09-29-2024 Anion gap [Moles/Vol] 15 mmol/L 06-25 [facility] Automated lymphocyte count a s percentage of total leukocytesOrdered By: Vasquez Roy on 09-29-2024 Lymphocytes/100 WBC Auto (Unsp spec) 30.7 % [facility] BUN/creatinine ratioOrdered By: Vasquez Roy on 09-29-2024 Urea nitrogen/Creatinine [Mass ratio] 19.5 mg/mg 11-30 [facility] Basic Metabolic Profile (BMP )on 09-29-2024 BUN/CRE 19.5 RATIO Normal - [facility] Comment on above: Order Comment: Order Date: 09/29/24Order Info: 0667-1 - BMP Performed By: #### L 501.9985, L500.2500, L100.0100 ####[facility] [address] [place], [address] Calcium [Mass/Vol] 10.2 mg/dL Normal 7.6-11.0 [facility] Comment on above: Order Comment: Order Date: 09/29/24Order Info: 0667- - BMP Performed By: #### L 501.9985, L500.2500, L100.0100 ####[facility] [address] [place], [address] Chloride [Moles/Vol] 101 mmol/L Normal 98-108 [facility] Comment on above: Order Comment: Order Date: 09/29/24Order Info: 06-1 - BMP Performed By: #### L 501.9985, L500.2500, L100.0100 ####[facility] [address] [place], [address] CO2 [Moles/Vol] 23.7 mmol/L Normal 21.0-32.0 [facility] Comment on above: Order Comment: Order Date: 09/29/24Order Info: 0667-1 - BMP Performed By: #### L 501.9985, L500.2500, L100.0100 ####[facility] [address] [place], [address] Creatinine [Mass/Vol] 0.79 mg/dL Normal 0.70-1.20 [facility] Comment on above: Order Comment: Order Date: 09/29/24Order Info: 0667- - BMP Performed By: #### L 501.9985, L500.2500, L100.0100 ####[facility] [address] [place], [address] GAP 15 Normal 5-15 [facility] Comment on above: Order Comment: Order Date: 09/29/24Order Info: 0667- - BMP Performed By: #### L 501.9985, L500.2500, L100.0100 ####[facility] [address] [place], [address] GFR/1.73 sq M.predicted among non-blacks MDRD (S/P/Bld) [Vol rate/Area] 105 mL/min/{1.73_m2} Normal >60 [facility] Comment on above: Order Comment: Order Date: 09/29/24Order Info: 0667-1 - BMP Result Comment: mL/m in/1.73m2 CKD-EPI Creatinine Equation (2020) Performed By: #### L 501.9985, L500.2500, L100.0100 ####[facility] [address] [place], [address] Glucose [Mass/Vol] 98 mg/dL Normal 70-99 [facility] Comment on above: Order Comment: Order Date: 09/29/24Order Info: 06 - BMP Performed By: #### L 501.9985, L500.2500, L100.0100 ####[facility] [address] [place], [address] Potassium [Moles/Vol] 4.7 mmol/L Normal 3.3-5.1 [facility] Comment on above: Order Comment: Order Date: 09/29/24Order Info: 666-02 - BMP Performed By: #### L 501.9985, L500.2500, L100.0100 ####[facility] [address] [place], [address] Sodium [Moles/Vol] 139 mmol/L Normal 133-145 [facility] Comment on above: Order Comment: Order Date: 09/29/24Order Info: 666-02 - BMP Performed By: #### L 501.9985, L500.2500, L100.0100 ####[facility] [address] [place], [address] Urea nitrogen [Mass/Vol] 15 mg/dL Normal 4-19 [facility] Comment on above: Order Comment: Order Date: 09/29/24Order Info: 666-02 - BMP Performed By: #### L 501.9985, L500.2500, L100.0100 ####[facility] [address] [place], [address] Basophil percentageOrdered B y: Vasquez Roy on 09-29-2024 Basophils/100 WBC (Bld) 0.5 % 0-1 [facility] CBC W/Diff, Automatedon 09-11 Absolute Lymph 3.35 X10 3/uL Normal 0.83-4.51 [facility] Comment on above: Order Comment: Order Date: 09/29/24Order Info: 0184-1 - CBCD Performed By: #### L 501.9985, L500.2500, L100.0100 ####[facility] [address] [place], [address] Absolute Neut 6.7 X10 3/uL Normal 2.0-7.7 [facility] [facility] Comment on above: Order Comment: Order Date: 09/29/24Order Info: 0184-1 - CBCD Performed By: #### L 501.9985, L500.2500, L100.0100 ####[facility] [address] [place], [address] Basophils/100 WBC (Bld) 0.5 % Normal 0-1 [facility] Comment on above: Order Comment: Order Date: 09/29/24Order Info: 018-1 - CBCD Performed By: #### L 501.9985, L500.2500, L100.0100 ####[facility] [address] [place], [address] Eosinophils/100 WBC (Bld) 1.0 % Normal 0-5 [facility] Comment on above: Order Comment: Order Date: 09/29/24Order Info: 018- - CBCD Performed By: #### L 501.9985, L500.2500, L100.0100 ####[facility] [address] [place], [address] Erythrocyte distribution width (RBC) [Ratio] 12.7 % Normal 11.6-14.6 [facility] Comment on above: Order Comment: Order Date: 09/29/24Order Info: 0184-1 - CBCD Performed By: #### L 501.9985, L500.2500, L100.0100 ####[facility] [address] [place], [address] Hematocrit (Bld) [Volume fraction] 44.3 % Normal 37-47 [facility] Comment on above: Order Comment: Order Date: 09/29/24Order Info: 0184-1 - CBCD Performed By: #### L 501.9985, L500.2500, L100.0100 ####[facility] [address] [place], [address] Hemoglobin (Bld) [Mass/Vol] 13.9 g/dL Normal 12.0-15.0 [facility] Comment on above: Order Comment: Order Date: 09/29/24Order Info: 018-1 - CBCD Performed By: #### L 501.9985, L500.2500, L100.0100 ####[facility] [address] [place], [address] IG% 0.200 Normal 0.0-0.9 [facility] Comment on above: Order Comment: Order Date: 09/29/24Order Info: 018- - CBCD Result Comment: IG% - Immature Granulocytes (promyelocytes, myelocytes and metamyelocytes) > 1% indicates that a LEFT SHIFT is Present. Performed By: #### L 501.9985, L500.2500, L100.0100 ####[facility] [address] [place], [address] Lymphocytes/100 WBC (Bld) 30.7 % Normal 19-41 [facility] Comment on above: Order Comment: Order Date: 09/29/24Order Info: 018- - CBCD Performed By: #### L 501.9985, L500.2500, L100.0100 ####[facility] [address] [place], [address] MCH (RBC) [Entitic mass] 26.8 pg Low 27.0-32.0 [facility] Comment on above: Order Comment: Order Date: 09/29/24Order Info: 0184-1 - CBCD Performed By: #### L 501.9985, L500.2500, L100.0100 ####[facility] [address] [place], [address] MCHC (RBC) [Mass/Vol] 31.4 g/dL Low 32-36 [facility] Comment on above: Order Comment: Order Date: 09/29/24Order Info: 0184-1 - CBCD Performed By: #### L 501.9985, L500.2500, L100.0100 ####[facility] [address] [place], [address] MCV (RBC) [Entitic vol] 85.4 fL Normal 81-99 [facility] Comment on above: Order Comment: Order Date: 09/29/24Order Info: 0184-1 - CBCD Performed By: #### L 501.9985, L500.2500, L100.0100 ####[facility] [address] [place], [address] Monocytes/100 WBC (Bld) 6.5 % Normal 0-10 [facility] Comment on above: Order Comment: Order Date: 09/29/24Order Info: 4- - CBCD Performed By: #### L 501.9985, L500.2500, L100.0100 ####[facility] [address] [place], [address] Neutrophils/100 WBC (Bld) 61.1 % Normal 47-70 [facility] Comment on above: Order Comment: Order Date: 09/29/24Order Info: 0184-1 - CBCD Performed By: #### L 501.9985, L500.2500, L100.0100 ####[facility] [address] [place], [address] Nucleated RBC (Bld) [#/Vol] 0 10*3/uL Normal 0-5 [facility] Comment on above: Order Comment: Order Date: 09/29/24Order Info: 0184-1 - CBCD Performed By: #### L 501.9985, L500.2500, L100.0100 ####[facility] [address] [place], [address] Platelet mean volume (Bld) [Entitic vol] 9.5 fL Normal 6.2-12.0 [facility] Comment on above: Order Comment: Order Date: 09/29/24Order Info: 018-1 - CBCD Performed By: #### L 501.9985, L500.2500, L100.0100 ####[facility] [address] [place], [address] Platelets (Bld) [#/Vol] 420 10*3/uL Normal 150-450 [facility] Comment on above: Order Comment: Order Date: 09/29/24Order Info: 0184-1 - CBCD Performed By: #### L 501.9985, L500.2500, L100.0100 ####[facility] [address] [place], [address] RBC (Bld) [#/Vol] 5.19 10*6/uL Normal 4.2-5.4 [facility] Comment on above: Order Comment: Order Date: 09/29/24Order Info: 018- - CBCD Performed By: #### L 501.9985, L500.2500, L100.0100 ####[facility] [address] [place], [address] RDW SD 39.5 fl Normal 35.1-43.9 [facility] Comment on above: Order Comment: Order Date: 09/29/24Order Info: 018- - CBCD Performed By: #### L 501.9985, L500.2500, L100.0100 ####[facility] [address] [place], [address] WBC (Bld) [#/Vol] 10.9 10*3/uL Normal 4.4-11.0 [facility] Comment on above: Order Comment: Order Date: 09/29/24Order Info: 018-1 - CBCD Performed By: #### L 501.9985, L500.2500, L100.0100 ####[facility] [address] [place], [address] Carbon dioxide, total [Moles /volume] in Central venous bloodOrdered By: Vasquez Roy on 09-29-2024 CO2 [Moles/Vol] 23.7 mmol/L 21.0-32.0 [facility] Chloride assayOrdered By: Guanaco Roy on 09-29-2024 Chloride [Moles/Vol] 101 mmol/L 98-108 [facility] Eosinophil percentageOrdered By: Vasquez Roy on 09-29-2024 Eosinophils/100 WBC (Bld) 1.0 % 0-5 [facility] Erythrocyte distribution wid th ratioOrdered By: Vasquez Roy on 09-29-2024 Erythrocyte distribution width (RBC) [Ratio] 12.7 % 11.6-14.6 [facility] Erythrocyte distribution wid th standard deviationOrdered By: Andreaprisma [facility] hospitalalex Roy on 09-29-2024 Erythrocyte distribution width (RBC) [Ratio] 39.5 fl 35.1-43.9 [facility] Glomerular filtration rate ( GFR) estimation/1.73 sq m using serum, plasma, or whole bOrdered By: Vasquez Roy on 09-29-2024 GFR/1.73 sq M.predicted among non-blacks MDRD (S/P/Bld) [Vol rate/Area] 105 mL/min/{1.73_m2} >60 [facility] Comment on above: mL/min/1.73m2 CKD-EP I Creatinine Equation (2020) Hematocrit Auto (Bld) [Volum e fraction]Ordered By: Vasquez Roy on 09-29-2024 Hematocrit (Bld) [Volume fraction] 44.3 % 37-47 [facility] Hemoglobin A1con 09-29-2024 HbA1c (Bld) [Mass fraction] 6.5 % High <=5.6 [facility] Comment on above: Order Comment: Order Date: 09/29/24Order Info: [id number] - A1C Result Comment: Norm al < 5.7 % Prediabetic 5.7 - 6.4 % Diabetic >or= 6.5 % Please note range changes. Performed By: #### L 074.4036, L500.2500, L100.0100 ####[facility] [address] [place], [place], [address] Hemoglobin A1c percentageOrd ered By: Vasquez Roy on 09-29-2024 HbA1c (Bld) [Mass fraction] 6.5 % High <5.7 [facility] Comment on above: Normal < 5.7 % Predi abetic 5.7 - 6.4 % Diabetic >or= 6.5 % Please note range changes. Hemoglobin measurementOrdere d By: Vasquez Roy on 09-29-2024 Hemoglobin (Bld) [Mass/Vol] 13.9 g/dL 12.0-15.0 [facility] Immature granulocytes/100 WB C Auto (Bld)Ordered By: Vasquez Roy on 09-29-2024 Immature granulocytes/100 WBC (Bld) 0.200 % 0.0-0.9 [facility] Comment on above: IG% - Immature Granu locytes (promyelocytes, myelocytes and metamyelocytes) > 1% indicates that a LEFT SHIFT is Present. MCV (mean corpuscular volume ) determinationOrdered By: Vasquez Roy on 09-29-2024 MCV (RBC) [Entitic vol] 85.4 fL 81-99 [facility] Mean corpuscular hemoglobin (MCH) determinationOrdered By: Vasquez Roy on 09-29-2024 MCH (RBC) [Entitic mass] 26.8 pg Low 27.0-32.0 [facility] Mean corpuscular hemoglobin concentration (MCHC) determinationOrdered By: Vasquez Ryo on 09-29-2024 MCHC (RBC) [Mass/Vol] 31.4 g/dL Low 32-36 [facility] Mean platelet volume determi nationOrdered By: Vasquez Roy on 09-29-2024 Platelet mean volume (Bld) [Entitic vol] 9.5 fL 6.2-12.0 [facility] Monocyte percentageOrdered B y: Vasquez Roy on 09-29-2024 Monocytes/100 WBC (Bld) 6.5 % 0-10 [facility] Neutrophil percentageOrdered By: Vasquez Roy on 09-29-2024 Neutrophils/100 WBC (Bld) 61.1 % 47-70 [facility] Nucleated red blood cell per centageOrdered By: Vasquez Roy on 09-29-2024 Nucleated RBC/100 WBC (Bld) [Ratio] 0 % 0-5 [facility] Platelet countOrdered By: Guanaco Roy on 09-29-2024 Platelets (Bld) [#/Vol] 420 10*3/uL 150-450 [facility] Potassium measurement (mass/ volume)Ordered By: Vasquez Roy on 09-29-2024 Potassium (Unsp spec) [Mass/Vol] 4.7 mmol/L 3.3-5.1 [facility] RBC Auto (Bld) [#/Vol]Ordere d By: Vasquez Roy on 09-29-2024 RBC (Bld) [#/Vol] 5.19 10*6/uL 4.2-5.4 [facility] Serum creatinine measurement (mass/volume)Ordered By: Vasqeuz Roy on 09-29-2024 Creatinine [Mass/Vol] 0.79 mg/dL 0.70-1.20 [facility] Serum glucose measurement (m ass/volume)Ordered By: Vasquez Roy on 09-29-2024 Glucose [Mass/Vol] 98 mg/dL 70-99 [facility] Serum or plasma calcium fidencio urement (mass/volume)Ordered By: Vasquez Roy on 09-29-2024 Calcium [Mass/Vol] 10.2 mg/dL 7.6-11.0 [facility] Serum or plasma urea nitroge n measurement (mass/volume)Ordered By: Vasquez Roy on 09-29-2024 Urea nitrogen [Mass/Vol] 15 mg/dL 4-19 [facility] Sodium levelOrdered By: Reginald Roy on 09-29-2024 Sodium [Moles/Vol] 139 mmol/L 133-145 [facility] Vitamin D,25 Hydroxyon 09-29 Vitamin D 25-OH 69.4 ng/mL Normal 30-100 [facility] Comment on above: Order Comment: Order Date: 09/29/24Order Info: [id number] - BMP Result Comment: Stephany min D Status Deficiency: <20 ng/mL (50nmol/L) Insufficiency: 20-30 ng/mL (50-75 nmol/L) Sufficiency: 30-100 ng/mL (75-250 nmol/L) Toxicity: >100 ng/mL (>250 nmol/L) Performed By: #### L 506.1001 ####[facility] [address] [place], [address] White blood cell (WBC) count Ordered By: Vasquez Roy on 09-29-2024 WBC (Bld) [#/Vol] 10.9 10*3/uL 4.4-11.0 [facility] 08-24-2024 CNPN Telephone (OBGYWM) ROCHELLE HOWARD ([id number]) 1995 F Date Time Provider Department 08/24/24 FIDELIA PUGH During your visit today, we recorded the following information about you: Karla Rivera RN 08/24/2024 11:05 AM Signed Pt's mother calls stating Pt is having foot surgery (cutting muscle in lower leg-Pt has CP-will help with better ROM/removing some bones in toes as well) left leg on 10/16/24 and waiting 6 weeks to 2 months until right leg. Mother states she has to be off OCP minimum 1 month prior to surgery. Dr. Mayorga[facility] will be doing the surgery. Surgery physical in September will be done with Dr. Roy. Started period Saturday. Pt's mother asking if there is anything to be concerned about leaving her off. Has been on since age 16. Please advise. GAVIN Quan Jessica, APRN.CNM 08/24/2024 12:30 PM Signed Sorry to hear she is having surgery but agree stopping one month prior. It is fine for her to be off the pill I just know she does not like getting her period. Hope everything goes well. SCARLETT [place] Adeola, RN 08/24/2024 1:33 PM Signed Patient's mother, Say, notified. Adeola Browning RN Allergies As of Date: 08/24/2024 Noted Allergy Reaction BENZOCAINE 04/15/2017 7 - Swelling ROCEPHIN (CEFTRIAXONE SODIUM) 04/11/2017 2 - Rash Date Reviewed: 01/28/2024 Reviewed by: Jeronimo Gregory MA - Fully Assessed Reason for Visit: Surgery/OCP [Other] Prescriptions as of 08/24/2024 - LINZESS 145 mcg capsule Take 145 mcg by mouth daily at 6 am. - ketoconazole (NIZORAL) 2 % cream Apply to affected area once daily. - metroNIDAZOLE (METROGEL) 0.75 % Topical Gel Apply to affected area two times a day. - L-Norgest and E Estradiol-E Estrad (DAYSEE) 0.15 mg-30 mcg (84)/10 mcg (7) Take 1 tablet by mouth once daily. Skip placebo pill and start new pack. Use continuous cycle. - cetirizine (ZYRTEC) 10 mg tablet Take 10 mg by mouth once daily. - cyanocobalamin (VITAMIN B-12) 1,000 mcg tab - methylphenidate ER (METADATE ER) 20 mg ER tablet Take 20 mg by mouth. - amitriptyline HCl (AMITRIPTYLINE ORAL) Take by mouth. - EX-LAX, SENNOSIDES, ORAL Take by mouth. - sumatriptan succinate (IMITREX ORAL) Take by mouth. - B.ani/L.aci/L.chris/L.gisel n/L.Alec (PROBIOTIC FORMULA ORAL) Take by mouth. - albuterol (PROVENTIL) 2.5 mg /3 mL (0.083 %) nebulizer solution USE 3ML (2.5MG) BY NEBULIZER EVERY FOUR HOURS NEEDED FOR ASTHMA TREATMENT PLAN - FLOVENT HFA 110 mcg/actuation inhaler - FLUTICASONE PROPIONATE (FLONASE NASAL) Use in the nose. - albuterol HFA (PROVENTIL HFA, VENTOLIN HFA) 90 mcg/actuation inhaler Inhale 2 Puffs as instructed. Problem List As Of Date 08/24/2024 Noted Resolved Intellectual disability [F79] Encounter Status:Closed by ADEOLA BROWNING on 08/24/24 Normal [facility] 12 Lead EKGon 06-30-2024 12 Lead EKG [facility] [address] [place] [address] 12 Lead EKG 06/30/24 1310 MR#: [id number] Acct: [id number] Name: ROCHELLE HOWARD Rep #: [id number] : 1995 29 From: Krishna Mcduffie MD Attending Dr: Status: DEP ER Ordering Dr: Michell Foster DO Date: 06/30/24 Location: ED Sex: F C Admitted: Test Reason : CP Blood Pressure : */* mmHG Vent. Rate : 94 BPM Atrial Rate : 94 BPM P-R Int : 132 ms QRS Dur : 66 ms QT Int : 338 ms P-R-T Axes : 58 81 12 degrees QTcB Int : 422 ms Normal sinus rhythm Nonspecific T wave abnormality Abnormal ECG Confirmed by CANDIS BECKER, KRISHNA ([id number]), pictures editor CASSIE BARBOZA ([id number]) on 07/01/2024 10:35:00 AM Referred By: KALEIGH/KRISTIN Confirmed By: KRISHNA MCDUFFIE MD 07/01/24 1035 Date Krishna Mcduffie MD CC: Dr. Vasquez Roy MD; Dr. Michell Foster DO Signed Normal [facility] Absolute lymphocyte countOrd ered By: Michell Foster on 06-30-2024 Lymphocytes Auto (Unsp spec) [#/Vol] 2.94 10*3/uL 0.83-4.51 [facility] Absolute neutrophil countOrd ered By: Michell Foster on 06-30-2024 Neutrophils (Bld) [#/Vol] 4.5 10*3/uL 2.0-7.7 [facility] Anion gap in Serum or Plasma Ordered By: Michell Foster on 06-30-2024 Anion gap [Moles/Vol] 12 mmol/L 06-25 [facility] Automated lymphocyte count a s percentage of total leukocytesOrdered By: Michell Foster on 06-30-2024 Lymphocytes/100 WBC Auto (Unsp spec) 36.3 % [facility] BUN/creatinine ratioOrdered By: Michell Foster on 06-30-2024 Urea nitrogen/Creatinine [Mass ratio] 16.6 mg/mg 11-30 [facility] Basic Metabolic Profile (BMP )on 06-30-2024 BUN/CRE 16.6 RATIO Normal 11-30 [facility] Comment on above: Performed By: #### L 500.2500, L501.4021, L300.8000, L501.2450, L500.4050, L100.0100 #### [facility] [address] [place], [address] Calcium [Mass/Vol] 9.6 mg/dL Normal 7.6-11.0 [facility] Comment on above: Performed By: #### L 500.2500, L501.4021, L300.8000, L501.2450, L500.4050, L100.0100 #### [facility] [address] [place], [address] Chloride [Moles/Vol] 103 mmol/L Normal 98-108 [facility] Comment on above: Performed By: #### L 500.2500, L501.4021, L300.8000, L501.2450, L500.4050, L100.0100 #### [facility] [address] [place], [address] CO2 [Moles/Vol] 23.2 mmol/L Normal 21.0-32.0 [facility] Comment on above: Performed By: #### L 500.2500, L501.4021, L300.8000, L501.2450, L500.4050, L100.0100 #### [facility] [address] [place], [address] Creatinine [Mass/Vol] 0.82 mg/dL Normal 0.70-1.20 [facility] Comment on above: Performed By: #### L 500.2500, L501.4021, L300.8000, L501.2450, L500.4050, L100.0100 #### [facility] [address] [place], [address] ECRCL 73.37 ml/min Normal 50-250 [facility] Comment on above: Performed By: #### L 500.2500, L501.4021, L300.8000, L501.2450, L500.4050, L100.0100 #### [facility] [address] [place], [address] GAP 12 Normal 5-15 [facility] Comment on above: Performed By: #### L 500.2500, L501.4021, L300.8000, L501.2450, L500.4050, L100.0100 #### [facility] [address] [place], [address] GFR/1.73 sq M.predicted among non-blacks MDRD (S/P/Bld) [Vol rate/Area] 100 mL/min/{1.73_m2} Normal >60 [facility] Comment on above: Result Comment: mL/m in/1.73m2 CKD-EPI Creatinine Equation (2020) Performed By: #### L 500.2500, L501.4021, L300.8000, L501.2450, L500.4050, L100.0100 #### [facility] [address] [place], [address] Glucose [Mass/Vol] 144 mg/dL High 70-99 [facility] Comment on above: Performed By: #### L 500.2500, L501.4021, L300.8000, L501.2450, L500.4050, L100.0100 #### [facility] [address] [place], [address] Potassium [Moles/Vol] 4.0 mmol/L Normal 3.3-5.1 [facility] Comment on above: Performed By: #### L 500.2500, L501.4021, L300.8000, L501.2450, L500.4050, L100.0100 #### [facility] [address] [place], [address] Sodium [Moles/Vol] 137 mmol/L Normal 133-145 [facility] Comment on above: Performed By: #### L 500.2500, L501.4021, L300.8000, L501.2450, L500.4050, L100.0100 #### [facility] [address] [place], [address] Urea nitrogen [Mass/Vol] 14 mg/dL Normal 4-19 [facility] Comment on above: Performed By: #### L 500.2500, L501.4021, L300.8000, L501.2450, L500.4050, L100.0100 #### [facility] [address] [place], [address] Basophil percentageOrdered B y: Michell Foster on 06-30-2024 Basophils/100 WBC (Bld) 0.5 % 0-1 [facility] Bilirubin, totalOrdered By: Michell Foster on 06-30-2024 Bilirubin [Mass/Vol] 0.51 mg/dL 0.00-1.30 [facility] CBC W/Diff, Automatedon 06-12 Absolute Lymph 2.94 X10 3/uL Normal 0.83-4.51 [facility] Comment on above: Performed By: #### L 500.2500, L501.4021, L300.8000, L501.2450, L500.4050, L100.0100 #### [facility] [address] [place], [address] Absolute Neut 4.5 X10 3/uL Normal 2.0-7.7 [facility] Comment on above: Performed By: #### L 500.2500, L501.4021, L300.8000, L501.2450, L500.4050, L100.0100 #### [facility] [address] [place], [address] Basophils/100 WBC (Bld) 0.5 % Normal 0-1 [facility] Comment on above: Performed By: #### L 500.2500, L501.4021, L300.8000, L501.2450, L500.4050, L100.0100 #### [facility] [address] [place], [address] Eosinophils/100 WBC (Bld) 0.9 % Normal 0-5 [facility] Comment on above: Performed By: #### L 500.2500, L501.4021, L300.8000, L501.2450, L500.4050, L100.0100 #### [facility] [address] [place], [address] Erythrocyte distribution width (RBC) [Ratio] 12.6 % Normal 11.6-14.6 [facility] Comment on above: Performed By: #### L 500.2500, L501.4021, L300.8000, L501.2450, L500.4050, L100.0100 #### [facility] [address] [place], [address] Hematocrit (Bld) [Volume fraction] 39.6 % Normal 37-47 [facility] Comment on above: Performed By: #### L 500.2500, L501.4021, L300.8000, L501.2450, L500.4050, L100.0100 #### [facility] [address] [place], [address] Hemoglobin (Bld) [Mass/Vol] 12.7 g/dL Normal 12.0-15.0 [facility] Comment on above: Performed By: #### L 500.2500, L501.4021, L300.8000, L501.2450, L500.4050, L100.0100 #### [facility] [address] [place], [address] IG% 0.200 Normal 0.0-0.9 [facility] Comment on above: Result Comment: IG% - Immature Granulocytes (promyelocytes, myelocytes and metamyelocytes) > 1% indicates that a LEFT SHIFT is Present. Performed By: #### L 500.2500, L501.4021, L300.8000, L501.2450, L500.4050, L100.0100 #### [facility] [address] [place], [address] Lymphocytes/100 WBC (Bld) 36.3 % Normal 19-41 [facility] Comment on above: Performed By: #### L 500.2500, L501.4021, L300.8000, L501.2450, L500.4050, L100.0100 #### [facility] [address] [place], [address] MCH (RBC) [Entitic mass] 27.5 pg Normal 27.0-32.0 [facility] Comment on above: Performed By: #### L 500.2500, L501.4021, L300.8000, L501.2450, L500.4050, L100.0100 #### [facility] [address] [place], [address] MCHC (RBC) [Mass/Vol] 32.1 g/dL Normal 32-36 [facility] Comment on above: Performed By: #### L 500.2500, L501.4021, L300.8000, L501.2450, L500.4050, L100.0100 #### [facility] [address] [place], [address] MCV (RBC) [Entitic vol] 85.9 fL Normal 81-99 [facility] Comment on above: Performed By: #### L 500.2500, L501.4021, L300.8000, L501.2450, L500.4050, L100.0100 #### [facility] [address] [place], [address] Monocytes/100 WBC (Bld) 6.7 % Normal 0-10 [facility] Comment on above: Performed By: #### L 500.2500, L501.4021, L300.8000, L501.2450, L500.4050, L100.0100 #### [facility] [facility] [address] [place], [address] Neutrophils/100 WBC (Bld) 55.4 % Normal 47-70 [facility] Comment on above: Performed By: #### L 500.2500, L501.4021, L300.8000, L501.2450, L500.4050, L100.0100 #### [facility] [address] [place], [address] Nucleated RBC (Bld) [#/Vol] 0 10*3/uL Normal 0-5 [facility] Comment on above: Performed By: #### L 500.2500, L501.4021, L300.8000, L501.2450, L500.4050, L100.0100 #### [facility] [address] [place], [address] Platelet mean volume (Bld) [Entitic vol] 9.3 fL Normal 6.2-12.0 [facility] Comment on above: Performed By: #### L 500.2500, L501.4021, L300.8000, L501.2450, L500.4050, L100.0100 #### [facility] [address] [place], [address] Platelets (Bld) [#/Vol] 412 10*3/uL Normal 150-450 [facility] Comment on above: Performed By: #### L 500.2500, L501.4021, L300.8000, L501.2450, L500.4050, L100.0100 #### [facility] [address] [place], [address] RBC (Bld) [#/Vol] 4.61 10*6/uL Normal 4.2-5.4 [facility] Comment on above: Performed By: #### L 500.2500, L501.4021, L300.8000, L501.2450, L500.4050, L100.0100 #### [facility] [address] [place], [address] RDW SD 39.5 fl Normal 35.1-43.9 [facility] Comment on above: Performed By: #### L 500.2500, L501.4021, L300.8000, L501.2450, L500.4050, L100.0100 #### [facility] [address] [place], [address] WBC (Bld) [#/Vol] 8.1 10*3/uL Normal 4.4-11.0 [facility] Comment on above: Performed By: #### L 500.2500, L501.4021, L300.8000, L501.2450, L500.4050, L100.0100 #### [facility] [address] [place], [address] Carbon dioxide, total [Moles /volume] in Central venous bloodOrdered By: Michell Foster on 06-30-2024 CO2 [Moles/Vol] 23.2 mmol/L 21.0-32.0 [facility] Chest PA and Lateralon 06-30 Chest PA and Lateral [facility] Imaging Services [address] [place] [address] Chest PA and Lateral MR#: [id number] Acct: [id number] Name: ROCHELLE HOWARD Rep #: [id number] : 1995 F 29 From: Jose Sellers MD PCP: Dr. Vasquez Roy MD Status: REG ER Study: Chest PA and Lateral Date of Exam: 06/30/24 Exam# [id number] Ordering Dr: Michell Foster DO EXAM: XR Chest, 2 Views CLINICAL INDICATION: CHEST PAIN TECHNIQUE: Frontal and lateral views of the chest. COMPARISON: No relevant prior studies available. FINDINGS: LUNGS AND PLEURAL SPACES: Unremarkable. No consolidation. No pneumothorax. HEART: Unremarkable. No cardiomegaly. MEDIASTINUM: Unremarkable. Normal mediastinal contour. BONES/JOINTS: Unremarkable. No acute fracture. RAD/Chest PA and Lateral IMPRESSION: No acute cardiopulmonary process. Reading Location: [facility] CC: Dr. Vasquez Roy MD; Dr. Michell Foster DO Supervisor Paper Machine: Signed Normal [facility] Chloride assayOrdered By: Suresh Foster on 06-30-2024 Chloride [Moles/Vol] 103 mmol/L 98-108 [facility] Comprehensive Metabolic Prof ilon 06-30-2024 Albumin [Mass/Vol] 3.9 g/dL Normal 3.5-5.0 [facility] Comment on above: Performed By: #### L 500.2500, L501.4021, L300.8000, L501.2450, L500.4050, L100.0100 #### [facility] [address] [place], [address] Albumin/Globulin [Mass ratio] 1.3 {ratio} Normal 0.9-2.4 [facility] Comment on above: Performed By: #### L 500.2500, L501.4021, L300.8000, L501.2450, L500.4050, L100.0100 #### [facility] [address] [place], [address] ALK PHOS 95 U/L Normal 35-104 [facility] Comment on above: Performed By: #### L 500.2500, L501.4021, L300.8000, L501.2450, L500.4050, L100.0100 #### [facility] [address] [place], [address] ALT [Catalytic activity/Vol] 9 U/L Normal <=34 [facility] Comment on above: Performed By: #### L 500.2500, L501.4021, L300.8000, L501.2450, L500.4050, L100.0100 #### [facility] [address] [place], [address] AST [Catalytic activity/Vol] 19 U/L Normal <=31 [facility] Comment on above: Performed By: #### L 500.2500, L501.4021, L300.8000, L501.2450, L500.4050, L100.0100 #### [facility] [address] [place], [address] Bilirubin [Mass/Vol] 0.51 mg/dL Normal 0.00-1.30 [facility] Comment on above: Performed By: #### L 500.2500, L501.4021, L300.8000, L501.2450, L500.4050, L100.0100 #### [facility] [address] [place], [address] Globulin (S) [Mass/Vol] 3.0 g/dL Normal 2.2-4.2 [facility] Comment on above: Performed By: #### L 500.2500, L501.4021, L300.8000, L501.2450, L500.4050, L100.0100 #### [facility] [address] [place], [address] T PROT 6.9 g/dL Normal 5.9-8.4 [facility] Comment on above: Performed By: #### L 500.2500, L501.4021, L300.8000, L501.2450, L500.4050, L100.0100 #### [facility] [address] [place], [place], [address] D-Dimer Quantitative (DVT/PE )on 06-30-2024 D-DIMER QUANT 0.27 FEU/ug/m Normal 0.27-0.49 [facility] Comment on above: Result Comment: NORM AL D-Dimer level (<0.50) indicates no DVT or PE. Performed By: #### L 500.2500, L501.4021, L300.8000, L501.2450, L500.4050, L100.0100 #### [facility] [address] [place], [place], [address] Emergency Department Summary on 06-30-2024 Emergency Department Summary [facility] Medical Records Department [address] [place] [address] Emergency Department Summary 06/30/24 MR#: [id number] Acct: [id number] Name: ROCHELLE HOWARD Rep #: [id number] : 1995 29 From: Michell Foster DO PCP: Dr. Vasquez Roy MD Status:REG ER Location: ED HPI History of Present Illness Chief Complaint: Chest Pain Informant: patient and parent Narrative Narrative: Patient is a 29-year-old female with history of GERD, cerebral palsy, cognitive developmental delay and remote history of PEG tube as well as Elizabeth fundoplication presenting with chest pain. She states she woke up with it this morning. It is in the center of her chest. Worse with movement and deep breathing. Feels mildly short of breath with it. Denies use one of her legs. Has some mild nausea but no vomiting. Took ibuprofen at 1230 this morning with some help with the pain. Denies any history of DVT or PE. Is on control. Denies any swelling of her legs. Was with her father no she has had pain like this before but they have never been able to figure out what the cause of it. Did eat lunch and does not report any change or symptoms with eating. No other complaints or concerns reported at this time. Chart review shows the patient has a HIDA scan on which showed gallbladder ejection fraction 46% at 27 minutes post stimulation. [facility] Medical History Constipation GERD (gastroesophageal reflux disease) Cerebral palsy Cognitive developmental delay g tube removal g tube thalfundoplication Asthma Headache Seasonal allergies SOB (shortness of breath) Lung disease Home Medications ???Medication ???Instructions ???Recorded ???Last Taken ???Type L norgest/E estradiol-E estrad 1 ea PO DAILY 03/22/16 06/30/24 Hi story 0.15 mg-30 mcg (84)/10 mcg(7) tabs,3mos albuterol sulfate 90 mcg/actuation 1 - 2 puff inhalation Q6H PRN So b 03/22/16 Unknown History aerosol inhaler /Or Wheezing cetirizine 10 mg tablet 10 mg PO DAILY 03/22/16 06/30/24 H istory fluticasone propionate 110 1 puff inhalation BID 03/22/16 History mcg/actuation HFA aerosol inhaler fluticasone propionate 50 1 spray NASAL BID 03/22/16 5 History mcg/actuation nasal spray,suspension ibuprofen 200 mg tablet 200 mg PO Q6H PRN Fever 03/22/16 U nknown History sumatriptan 20 mg/actuation nasal 20 mg NS DAILY PRN MIGRAINES 10/28 Unknown History spray amitriptyline 25 mg tablet 25 mg PO QHS 04/04/22 06/29/24 His tory cyanocobalamin (vitamin B-12) 1,000 mcg PO DAILY 04/04/22 History 1,000 mcg tablet,extended release ivermectin 1 % topical cream 1 applic topical DAILY PRN FACE Unknown History ketoconazole 2 % shampoo 1 applic topical DAILY PRN SCALP 0 04/04/22 Unknown History IRRITATION ketoconazole 2 % topical cream 1 applic topical DAILY PRN skin Unknown History irritation metronidazole 0.75 % topical cream 1 applic topical DAILY PRN skin 04/04/22 Unknown History irritation linaclotide 145 mcg capsule 145 mcg PO BID #60 caps 04/14/24 0 06/30/24 Rx (Linzess) Lactobacillus rhamnosus GG 10 1 cap PO DAILY 06/30/24 06/30/24 H istory billion cell capsule (Culturelle) cholecalciferol (vitamin D3) 50 50 mcg PO DAILY 06/30/24 06/30/24 History mcg (2,000 unit) tablet (D3 DOTS) methylphenidate HCl 30 mg biphasic 30 mg PO DAILY 06/30/24 06/30/24 History 30-70 capsule,extended release sennosides 15 mg tablet (Laxative 15 mg PO DAILY 06/30/24 06/30/24 History (sennosides)) Allergy/AdvReac Type Severity Reaction Status Date / Time allantoin (From Orajel) Allergy Swelling Verified 06/30/24 12:58 benzalkonium chloride (From Allergy Swelling Verified 06/30/24 12:58 Orajel) benzocaine (From Orajel) Allergy Swelling Verified 06/30/24 12:58 carbamide peroxide (From Allergy Swelling Verified 06/30/24 12:58 Orajel) ceftriaxone (From Rocephin) Allergy Rash Verified 06/30/24 12:58 zinc chloride (From Orajel) Allergy Swelling Verified 06/30/24 12:58 methylphenidate (From AdvReac Unknown Verified 06/30/24 12:58 Ritalin) Family History Mother Asthma Hypertension CAD (coronary artery disease) Myocardial infarction A-fib Surgical History H/O eye surgery Hx of tonsillectomy Social History Smoking Status: Unknown if ever smoked alcohol intake: never ROS ROS ED Constitutional Constitutional ED: Denies chills or fever(s) ENT ENT ED: Denies sore throat Cardiovascular Cardiovascular: Reports as per HPI and jack (more content not included)... Normal [facility] Eosinophil percentageOrdered By: Michell Foster on 06-30-2024 Eosinophils/100 WBC (Bld) 0.9 % 0-5 [facility] Erythrocyte distribution wid th ratioOrdered By: Michell Foster on 06-30-2024 Erythrocyte distribution width (RBC) [Ratio] 12.6 % 11.6-14.6 [facility] Erythrocyte distribution wid th standard deviationOrdered By: Michell Foster on 06-30-2024 Erythrocyte distribution width (RBC) [Ratio] 39.5 fl 35.1-43.9 [facility] Glomerular filtration rate ( GFR) estimation/1.73 sq m using serum, plasma, or whole bOrdered By: Michell Foster on 06-30-2024 GFR/1.73 sq M.predicted among non-blacks MDRD (S/P/Bld) [Vol rate/Area] 100 mL/min/{1.73_m2} >60 [facility] Comment on above: mL/min/1.73m2 CKD-EP I Creatinine Equation (2020) Hematocrit Auto (Bld) [Volum e fraction]Ordered By: Michell Foster on 06-30-2024 Hematocrit (Bld) [Volume fraction] 39.6 % 37-47 [facility] Hemoglobin measurementOrdere d By: Michell Foster on 06-30-2024 Hemoglobin (Bld) [Mass/Vol] 12.7 g/dL 12.0-15.0 [facility] Immature granulocytes/100 WB C Auto (Bld)Ordered By: Michell Foster on 06-30-2024 Immature granulocytes/100 WBC (Bld) 0.200 % 0.0-0.9 [facility] Comment on above: IG% - Immature Granu locytes (promyelocytes, myelocytes and metamyelocytes) > 1% indicates that a LEFT SHIFT is Present. L499.0042on 06-30-2024 Trop T High Sen Normal <=14 [facility] Comment on above: Result Comment: NO S PECIMEN COLLECTED. PATIENT DEPARTED ED. Performed By: #### L 499.0042 #### [facility] [address] [place], [address] L499.0043on 06-30-2024 Trop T High Sen Normal <=14 [facility] Comment on above: Result Comment: Canc elled via OM: Order cancelled - Patient discharged Performed By: #### L 499.0043 ####[facility] [address] [place], [place], [address] L501.4021on 06-30-2024 Trop T High Sen < 6 Normal <=14 [facility] Comment on above: Performed By: #### L 500.2500, L501.4021, L300.8000, L501.2450, L500.4050, L100.0100 ####[facility] [address] [place], [address] Laboratory - Chemistry and C hemistry - challengeOrdered By: Michell Foster on 06-30-2024 AST [Catalytic activity/Vol] 19 U/L <32 [facility] Lipaseon 06-30-2024 Lipase [Catalytic activity/Vol] 41 U/L Normal 13-75 [facility] Comment on above: Result Comment: Plea se note: LIPASE revised reference range effective 22. New Lipase methodology. Expected to produce lower values than the previous assay method. NEW Reference Range: 13 - 75 U/L Performed By: #### L 500.2500, L501.4021, L300.8000, L501.2450, L500.4050, L100.0100 ####[facility] [address] [place], [address] Lipase measurementOrdered By : Michell Foster on 06-30-2024 Lipase [Catalytic activity/Vol] 41 U/L 13-75 [facility] Comment on above: Please note:LIPASE r evised reference range effective 22. New Lipase methodology. Expected to produce lower values than the previous assay method. NEW Reference Range: 13 - 75 U/L MCV (mean corpuscular volume ) determinationOrdered By: Michell Foster on 06-30-2024 MCV (RBC) [Entitic vol] 85.9 fL 81-99 [facility] Mean corpuscular hemoglobin (MCH) determinationOrdered By: Michell Foster on 06-30-2024 MCH (RBC) [Entitic mass] 27.5 pg 27.0-32.0 [facility] Mean corpuscular hemoglobin concentration (MCHC) determinationOrdered By: Michell Foster on 06-30-2024 MCHC (RBC) [Mass/Vol] 32.1 g/dL 32-36 [facility] Mean platelet volume determi nationOrdered By: Michell Foster on 06-30-2024 Platelet mean volume (Bld) [Entitic vol] 9.3 fL 6.2-12.0 [facility] Monocyte percentageOrdered B y: Michell Foster on 06-30-2024 Monocytes/100 WBC (Bld) 6.7 % 0-10 [facility] Neutrophil percentageOrdered By: Michell Foster on 06-30-2024 Neutrophils/100 WBC (Bld) 55.4 % 47-70 [facility] Nucleated red blood cell per centageOrdered By: Michell Foster on 06-30-2024 Nucleated RBC/100 WBC (Bld) [Ratio] 0 % 0-5 [facility] Platelet countOrdered By: Suresh Foster on 06-30-2024 Platelets (Bld) [#/Vol] 412 10*3/uL 150-450 [facility] Potassium measurement (mass/ volume)Ordered By: Michell Foster on 06-30-2024 Potassium (Unsp spec) [Mass/Vol] 4.0 mmol/L 3.3-5.1 [facility] RBC Auto (Bld) [#/Vol]Ordere d By: Michell Foster on 06-30-2024 RBC (Bld) [#/Vol] 4.61 10*6/uL 4.2-5.4 [facility] Serum creatinine measurement (mass/volume)Ordered By: Michell Foster on 06-30-2024 Creatinine [Mass/Vol] 0.82 mg/dL 0.70-1.20 [facility] Serum globulin measurementOr dered By: Michell Foster on 06-30-2024 Globulin (S) [Mass/Vol] 3.0 g/dL 2.2-4.2 [facility] Serum glucose measurement (m ass/volume)Ordered By: Michell Foster on 05-20-2025 Glucose [Mass/Vol] 144 mg/dL High 70-99 [facility] Serum or plasma alanine galeana otransferase (ALT) measurementOrdered By: Michell Foster on 06-30-2024 ALT [Catalytic activity/Vol] 9 U/L <35 [facility] Serum or plasma albumin fidencio urement (mass/volume)Ordered By: Michell Foster on 06-30-2024 Albumin [Mass/Vol] 3.9 g/dL 3.5-5.0 [facility] Serum or plasma albumin/glob ulin mass ratioOrdered By: Michell Foster on 06-30-2024 Albumin/Globulin [Mass ratio] 1.3 {ratio} 0.9-2.4 [facility] Serum or plasma alkaline norma sphatase measurementOrdered By: Michell Foster on 06-30-2024 ALP [Catalytic activity/Vol] 95 U/L 35-104 [facility] Serum or plasma calcium fidencio urement (mass/volume)Ordered By: Michell Foster on 06-30-2024 Calcium [Mass/Vol] 9.6 mg/dL 7.6-11.0 [facility] Serum or plasma urea nitroge n measurement (mass/volume)Ordered By: Michell Foster on 06-30-2024 Urea nitrogen [Mass/Vol] 14 mg/dL 4-19 [facility] Sodium levelOrdered By: Josef Foster on 06-30-2024 Sodium [Moles/Vol] 137 mmol/L 133-145 [facility] Total proteinOrdered By: Bridget Foster on 06-30-2024 Protein [Mass/Vol] 6.9 g/dL 5.9-8.4 [facility] Troponin T.cardiac [Mass/vol ume] in Serum or Plasma by High sensitivity methodOrdered By: Michell Foster on 06-30-2024 Troponin T.cardiac High sensitivity method [Mass/Vol] < 6 ng/L <14 [facility] White blood cell (WBC) count Ordered By: Michell Foster on 06-30-2024 WBC (Bld) [#/Vol] 8.1 10*3/uL 4.4-11.0 [facility] Hepatobilliary Img w/Pharm I nton 05-20-2024 Hepatobilliary Img w/Pharm Int [facility] Imaging Services [address] [place] [id number] Hepatobilliary Img w/Pharm Int MR#: [id number] Acct: [id number] Name: ROCHELLE HOWARD Rep #: [id number] : 1995 F 29 From: Misael Aranda MD PCP: Dr. Vasquez Roy MD Status: REG CLI Study: Hepatobilliary Img w/Pharm Int Date of Exam: 0 05/20/24 Exam# [id number] Ordering Dr: Avtar Kong DO PROCEDURE: HEPATOBILLIARY IMG W/PHARM INT 05/20/2024 REASON FOR EXAM: RUQ PAIN TECHNIQUE: Planar imaging of the abdomen was performed. 10 mcg Kinevac intravenously approximately 60 minutes after the radiopharmaceutical with additional anterior imaging and a region of interest drawn around the gallbladder to calculate a time-activity curve. RADIOPHARMACEUTICAL: 5.7 mCi of 99m Technetium Mebrofenin intravenously COMPARISON: Ultrasound abdomen limited dated 04/23/2024. FINDINGS: Prompt uptake of the radiopharmaceutical by the hepatocytes. Rapid appearance of activity in the small bowel.. Normal gallbladder visualization with the gallbladder identified within 30 minutes. Gallbladder Ejection Fraction: 46 % (Normal is >35%) NM/Hepatobilliary Img w/Pharm Int IMPRESSION: Gallbladder ejection fraction is 46% at 27 minutes post stimulation. Reading Location: [place] [address] CC: Dr. Vasquez Roy MD; Avtar Kong DO Supervisor Paper Machine: Signed Normal [facility] Abdomen Limitedon 04-23-2024 Abdomen Limited [facility] Services [address] [place] [id number] Abdomen Limited MR#: [id number] Acct: [id number] Name: ROCHELLE HOWARD Rep #: [id number] : 1995 F 29 From: Andres Michel PCP: Dr. Vasquez Roy MD Status: REG CLI Study: Abdomen Limited Date of Exam: 04/23/24 Exam# [id number] Ordering Dr: Avtar Kong DO PROCEDURE: ABDOMEN LIMITED REASON FOR EXAM: RUQ PAIN COMPARISON: None FINDINGS: Liver: Diffusely echogenic suggesting fatty infiltration. Gallbladder: No stones, sludge, wall thickening or tenderness. Common bile duct: Normal measuring 3.6 cm Pancreas: Visualized portions are sonographically unremarkable. Visualized portions of the right kidney are unremarkable. No right upper quadrant ascites. US/Abdomen Limited IMPRESSION: Features suggesting hepatic steatosis. No gallstones or biliary duct dilatation Reading Location: [facility] CC: Dr. Vasquez Roy MD; Avtar Kong DO Supervisor Paper Machine: Signed Normal [facility] Amylaseon 04-14-2024 EMELINA 70 U/L Normal 28-100 [facility] Comment on above: Performed By: #### L 500.4050, L501.2450, L501.2400, L501.6710, L101.9900 ####[facility] [address] [place], [address] Anion gap in Serum or Plasma Ordered By: Avtar Kong on 04-14-2024 Anion gap [Moles/Vol] 15 mmol/L 5-15 [facility] BUN/creatinine ratioOrdered By: Avtar Kong on 04-14-2024 Urea nitrogen/Creatinine [Mass ratio] 12.9 mg/mg 10-20 [facility] Bilirubin, totalOrdered By: Avtar Kong on 04-14-2024 Bilirubin [Mass/Vol] 0.62 mg/dL 0.00-1.30 [facility] CRPon 04-14-2024 C-REACTIVE PROT 13.90 mg/L High 0.0-3.0 [facility] Comment on above: Performed By: #### L 500.4050, L501.2450, L501.2400, L501.6710, L101.9900 ####[facility] [address] [place], [address] CRP [Mass/Vol]Ordered By: Ra joe Kong on 04-14-2024 C-Reactive Protein Extended Range 13.90 mg/L High 0.0-3.0 [facility] Carbon dioxide, total [Moles /volume] in Central venous bloodOrdered By: Avtar Kong on 04-14-2024 CO2 [Moles/Vol] 22.5 mmol/L 21.0-32.0 [facility] Chloride assayOrdered By: Ra diaz Friend on 04-14-2024 Chloride [Moles/Vol] 102 mmol/L 98-108 [facility] Comprehensive Metabolic Prof ilon 04-14-2024 Albumin [Mass/Vol] 4.3 g/dL Normal 3.5-5.0 [facility] Comment on above: Performed By: #### L 500.4050, L501.2450, L501.2400, L501.6710, L101.9900 ####[facility] [address] [place], [address] Albumin/Globulin [Mass ratio] 1.2 {ratio} Normal 0.9-2.4 [facility] Comment on above: Performed By: #### L 500.4050, L501.2450, L501.2400, L501.6710, L101.9900 ####[facility] [address] [place], [address] ALK PHOS 106 U/L High 35-104 [facility] Comment on above: Performed By: #### L 500.4050, L501.2450, L501.2400, L501.6710, L101.9900 ####[facility] [address] [place], [address] ALT [Catalytic activity/Vol] 23 U/L Normal <=34 [facility] Comment on above: Performed By: #### L 500.4050, L501.2450, L501.2400, L501.6710, L101.9900 ####[facility] [address] [place], [address] AST [Catalytic activity/Vol] 19 U/L Normal <=31 [facility] Comment on above: Performed By: #### L 500.4050, L501.2450, L501.2400, L501.6710, L101.9900 ####[facility] [address] [place], [address] Bilirubin [Mass/Vol] 0.62 mg/dL Normal 0.00-1.30 [facility] Comment on above: Performed By: #### L 500.4050, L501.2450, L501.2400, L501.6710, L101.9900 ####[facility] [address] [place], [address] BUN/CRE 12.9 RATIO Normal 10-20 [facility] Comment on above: Performed By: #### L 500.4050, L501.2450, L501.2400, L501.6710, L101.9900 ####[facility] [address] [place], [address] Calcium [Mass/Vol] 10.3 mg/dL Normal 7.6-11.0 [facility] Comment on above: Performed By: #### L 500.4050, L501.2450, L501.2400, L501.6710, L101.9900 ####[facility] [address] [place], [address] Chloride [Moles/Vol] 102 mmol/L Normal 98-108 [facility] Comment on above: Performed By: #### L 500.4050, L501.2450, L501.2400, L501.6710, L101.9900 ####[facility] [address] [place], [address] CO2 [Moles/Vol] 22.5 mmol/L Normal 21.0-32.0 [facility] Comment on above: Performed By: #### L 500.4050, L501.2450, L501.2400, L501.6710, L101.9900 ####[facility] [address] [place], [address] Creatinine [Mass/Vol] 0.93 mg/dL Normal 0.70-1.20 [facility] Comment on above: Performed By: #### L 500.4050, L501.2450, L501.2400, L501.6710, L101.9900 ####[facility] [address] [place], [address] GAP 15 Normal 5-15 [facility] Comment on above: Performed By: #### L 500.4050, L501.2450, L501.2400, L501.6710, L101.9900 ####[facility] [address] [place], [address] GFR/1.73 sq M.predicted among non-blacks MDRD (S/P/Bld) [Vol rate/Area] 86 mL/min/{1.73_m2} Normal >60 [facility] Comment on above: Result Comment: mL/m in/1.73m2 CKD-EPI Creatinine Equation (2020) Performed By: #### L 500.4050, L501.2450, L501.2400, L501.6710, L101.9900 ####[facility] [address] [place], [address] Globulin (S) [Mass/Vol] 3.7 g/dL Normal 2.2-4.2 [facility] Comment on above: Performed By: #### L 500.4050, L501.2450, L501.2400, L501.6710, L101.9900 ####[facility] [address] [place], [address] Glucose [Mass/Vol] 110 mg/dL High 70-99 [facility] Comment on above: Performed By: #### L 500.4050, L501.2450, L501.2400, L501.6710, L101.9900 ####[facility] [address] [place], [address] Potassium [Moles/Vol] 5.5 mmol/L High 3.3-5.1 [facility] Comment on above: Performed By: #### L 500.4050, L501.2450, L501.2400, L501.6710, L101.9900 ####[facility] [address] [place], [address] Sodium [Moles/Vol] 139 mmol/L Normal 133-145 [facility] Comment on above: Performed By: #### L 500.4050, L501.2450, L501.2400, L501.6710, L101.9900 ####[facility] [address] [place], [address] T PROT 8.0 g/dL Normal 5.9-8.4 [facility] Comment on above: Performed By: #### L 500.4050, L501.2450, L501.2400, L501.6710, L101.9900 ####[facility] [address] [place], [address] Urea nitrogen [Mass/Vol] 12 mg/dL Normal 4-19 [facility] Comment on above: Performed By: #### L 500.4050, L501.2450, L501.2400, L501.6710, L101.9900 ####[facility] [address] [place], [address] Erythrocyte Sed Rateon 04-14 SED RATE 7 mm/hr Normal 0-30 [facility] Comment on above: Performed By: #### L 500.4050, L501.2450, L501.2400, L501.6710, L101.9900 ####[facility] [address] [place], [place], [id number] Erythrocyte sedimentation ra teOrdered By: Avtar Kong on 04-14-2024 ESR (Bld) [Velocity] 7 mm/h 0-30 [facility] GFR/1.73 sq M.predicted jarett g non-blacks MDRD (S/P/Bld) [Vol rate/Area]Ordered By: Avtar Kong on 04-14-2024 Estimated GFR (MDRD) Non-Af Amer 86 >60 [facility] Comment on above: mL/min/1.73m2 CKD-EP I Creatinine Equation (2020) Glomerular filtration rate ( GFR) estimation/1.73 sq m using serum, plasma, or whole bOrdered By: Avtar Kong on 04-14-2024 GFR/1.73 sq M.predicted among non-blacks MDRD (S/P/Bld) [Vol rate/Area] 86 mL/min/{1.73_m2} >60 [facility] Comment on above: mL/min/1.73m2 CKD-EP I Creatinine Equation (2020) Laboratory - Chemistry and C hemistry - challengeOrdered By: Avtar Kong on 04-14-2024 AST [Catalytic activity/Vol] 19 U/L <32 [facility] Lipaseon 04-14-2024 Lipase [Catalytic activity/Vol] 35 U/L Normal 13-75 [facility] Comment on above: Result Comment: Rigoberto almanzar note: LIPASE revised reference range effective 22. New Lipase methodology. Expected to produce lower values than the previous assay method. NEW Reference Range: 13 - 75 U/L Performed By: #### L 500.4050, L501.2450, L501.2400, L501.6710, L101.9900 ####[facility] [address] [place], [place], [id number] Lipase measurementOrdered By : Avtar Kong on 04-14-2024 Lipase [Catalytic activity/Vol] 35 U/L 13-75 [facility] Comment on above: Please note:LIPASE r evised reference range effective 22. New Lipase methodology. Expected to produce lower values than the previous assay method. NEW Reference Range: 13 - 75 U/L Potassium (Unsp spec) [Mass/ Vol]Ordered By: Avtar Kong on 04-14-2024 Potassium [Moles/Vol] 5.5 mmol/L High 3.3-5.1 [facility] Potassium measurement (mass/ volume)Ordered By: Avtar Kong on 04-14-2024 Potassium (Unsp spec) [Mass/Vol] 5.5 mmol/L High 3.3-5.1 [facility] Serum creatinine measurement (mass/volume)Ordered By: Avtar Kong on 04-14-2024 Creatinine [Mass/Vol] 0.93 mg/dL 0.70-1.20 [facility] Serum globulin measurementOr dered By: Avtar Kong on 04-14-2024 Globulin (S) [Mass/Vol] 3.7 g/dL 2.2-4.2 [facility] Serum glucose measurement (m ass/volume)Ordered By: Avtar Kong on 04-14-2024 Glucose [Mass/Vol] 110 mg/dL High 70-99 [facility] Serum or plasma C reactive p rotein measurement (mass/volume)Ordered By: Avtar Kong on 04-14-2024 CRP [Mass/Vol] 13.90 mg/L High 0.0-3.0 [facility] Serum or plasma alanine galeana otransferase (ALT) measurementOrdered By: Avtar Kong on 04-14-2024 ALT [Catalytic activity/Vol] 23 U/L <35 [facility] Serum or plasma albumin fidencio urement (mass/volume)Ordered By: Avtar Kong on 04-14-2024 Albumin [Mass/Vol] 4.3 g/dL 3.5-5.0 [facility] Serum or plasma albumin/glob ulin mass ratioOrdered By: Avtar Kong on 04-14-2024 Albumin/Globulin [Mass ratio] 1.2 {ratio} 0.9-2.4 [facility] Serum or plasma alkaline norma sphatase measurementOrdered By: Avtar Kong on 04-14-2024 ALP [Catalytic activity/Vol] 106 U/L High 35-104 [facility] Serum or plasma amylase fidencio urement (enzymatic activity/volume)Ordered By: Avtar Kong on 04-14-2024 Amylase [Catalytic activity/Vol] 70 U/L 28-100 [facility] Serum or plasma calcium fidencio urement (mass/volume)Ordered By: Avtar Kong on 04-14-2024 Calcium [Mass/Vol] 10.3 mg/dL 7.6-11.0 [facility] Serum or plasma urea nitroge n measurement (mass/volume)Ordered By: Avtar Kong on 04-14-2024 Urea nitrogen [Mass/Vol] 12 mg/dL 4-19 [facility] Sodium levelOrdered By: Curt Koehler on 04-14-2024 Sodium [Moles/Vol] 139 mmol/L 133-145 [facility] Total proteinOrdered By: Aris Kong on 04-14-2024 Protein [Mass/Vol] 8.0 g/dL 5.9-8.4 [facility] Gastroenterology Visit Repor ton 04-03-2024 Gastroenterology Visit Report [facility] Gastroenterology [address] [place] [address] OFFICE VISIT Date of Service: 04/03/24 MR#: [id number] Acct: [id number] Name: ROCHELLE HOWARD Rep #: [id number] : 1995 Provider: Avtar Kong DO Age/Sex: 29/F [place] [facility] [place]: Signed Intake Vital Signs 12/23/20 15:36 Height 5 ft Intake Visit Reasons: 1 Y FU Allergies allantoin (From Orajel) Allergy (Verified 04/04/22 15:30) Swelling benzalkonium chloride (From Orajel) Allergy (Verified 04/04/22 15:30) Swelling benzocaine (From Orajel) Allergy (Verified 04/04/22 15:30) Swelling carbamide peroxide (From Orajel) Allergy (Verified 04/04/22 15:30) Swelling ceftriaxone (From Rocephin) Allergy (Verified 04/04/22 15:30) Rash zinc chloride (From Orajel) Allergy (Verified 04/04/22 15:30) Swelling methylphenidate (From Ritalin) Adverse Reaction (Verified 04/04/22 15:30) Unknown Medications ???Medication ???Instructions ???Recorded ???Confirmed ???Type L norgest/E estradiol-E estrad 1 ea PO DAILY 03/22/16 04/03/24 Hi story 0.15 mg-30 mcg (84)/10 mcg(7) tabs,3mos Probiotics 1 tab PO DAILY 03/22/16 04/03/24 H istory albuterol sulfate 90 mcg/actuation 1 - 2 puff inhalation Q6H PRN SD N 03/22/16 04/03/24 History aerosol inhaler Sob /Or Wheezing cetirizine 10 mg tablet 10 mg PO DAILY 03/22/16 04/03/24 H istory fluticasone propionate 110 1 puff inhalation BID 03/22/16 History mcg/actuation HFA aerosol inhaler fluticasone propionate 50 1 spray NASAL BID 03/22/16 5 History mcg/actuation nasal spray,suspension ibuprofen 200 mg tablet 200 mg PO Q6H PRN PRN Fever 04/03/24 History sumatriptan 20 mg/actuation nasal 20 mg NS DAILY PRN PRN CRESPO/MIGRAIN ES 03/22/16 04/03/24 History spray amitriptyline 25 mg tablet 25 mg PO 04/04/22 04/03/24 History cyanocobalamin (vitamin B-12) tablet PO 04/04/22 04/03/24 Histor y 1,000 mcg tablet,extended release ivermectin 1 % topical cream 1 applic topical 04/04/22 04/03/24 History ketoconazole 2 % shampoo 1 applic topical 04/04/22 04/03/24 History ketoconazole 2 % topical cream gm topical 04/04/22 04/03/24 Histo ry methylphenidate HCl 20 mg biphasic 20 mg PO QAM 04/04/22 04/03/24 H istory 30-70 capsule,extended release metronidazole 0.75 % topical cream gm topical 04/04/22 04/03/24 His tory linaclotide 290 mcg capsule 290 mcg PO QAM #30 caps 02/11/24 0 04/03/24 Rx (Linzess) PFSH Medical History Asthma Cerebral palsy Cognitive developmental delay Constipation g tube g tube removal GERD (gastroesophageal reflux disease) Headache Lung disease Seasonal allergies SOB (shortness of breath) thalfundoplication Surgical History H/O eye surgery Hx of tonsillectomy Family History Mother Asthma Hypertension CAD (coronary artery disease) Myocardial infarction A-fib Social History Smoking Status: Heavy Smoker (>10/day) alcohol intake: never HPI HPI Details: ROCHELLE HOWARD, is a 29 F who presents to the office today for follow up. ACH established at young age for cerebral palsy history with recurrent aspiration pneumonia requiring placement of PEG (removed 20 years later); Elizabeth fundoplication age 6. Dexilant started 2017 to address suspected reflux disease. Weight is typically stable unless she becomes nauseous with emesis and will the lose weight. Constipation has also been a long-term struggle with historical use of Colace, lactulose and linzess 145mcg with mixed effectiveness. ??? GI established [facility] in [place] in 2016 with recommendation of Colace/linzess/fiber/la ctulose regimen for constipation. EGD 10.04.16???normal esophagus; erythema and atrophy of the second portion of the duodenum; gastritis. Peg placement noted without signs of ulceration. Pathology without H.Pylori or celiac disease. Swallow study???performed and passed as reported by mother. Report unavailable. ??? *BGI established 10.28.20 with reflux and constipation. Stop???Colace/linzess/f iber/lactulose, start mineral oil, applesauce, aloe vera BID. Continue Dexilant.???Possible endoscopy in the future. Imaging Contact with concern regarding constipation ?K UB 11.22.20???noting stool throughout colon. ?C T abd/pel 11.23.20???small hiatal hernia; large amount of stool throughout colon. OV 11.25.20 Cholecystitis, US and HIDA scan, possible colicky involvement of gallbladder; constipation ??? Linzess 145mcg. GERD ??? continue delixant. ? (more content not included)... Normal [facility] CNOVon 01-28-2024 [facility] Office Visit (OBGYWM ) ZIGGYROCHELLE Felicity ([id number]) 1995 F Date Time Provider Department 01/28/24 12:00 PM FIDELIA PUGH During your visit today, we recorded the following information about you: Blood pressure Weight Height Last Period 114/72 53.1 kg 1.543 m 12/23/23 Fidelia Pugh APRN.CNM 01/28/2024 12:13 PM Signed Rochelle is a 29 year old who presents for an annual gynecologic exam without complaints. 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 Mother is sick today. Menses: 8 weeks on, 5 days off of OCP for continuous cycle. Pain with menses. Obsessive over bleeding at times. Contraception: combined hormonal contraceptives. No warning signs. any other time. HPV vaccine: No Last Pap: Not done HPV: N/A History of abnormal pap: No Last mammogram: never Sexually active: N OB History T0 L0 SAB0 IAB0 Ectopic0 Multiple0 Live Births0 Teacher'S Assistant History LMP: 12/23/2023 (Approximate), Having periods Age at Menarche: Age at First : Age at Menopause: Teacher'S Assistant History Comments: Sexual Activity: Never; No partner [...] Never Smokeless tobacco: Never Vaping Use Vaping status: Never Used Substance Use Topics Alcohol use: Never Drug use: Never REVIEW OF SYSTEMS Abdomen: No abdominal pain, nausea, vomiting, diarrhea, or constipation. No bloating, early satiety, indigestion, or increased flatulence. Bladder: No dysuria, gross hematuria,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 Phone: Basophil percentageon 2021 Basophils/100 WBC (Bld) 0.4 % 0-1 [facility] Work Phone: Bilirubin [Mass/Vol] 0.90 mg/dL 0.20-1.00 [facility] Work Phone: Comment on above: For patients on eltr ombopag therapy, use of Dimension [place] TBIL is not recommended. Chloride [Moles/Vol] 106 mmol/L 98-107 [facility] Work Phone: Eosinophils/100 WBC (Bld) 0.8 % 0-5 [facility] Work Phone: Glucose [Mass/Vol] 111 mg/dL 74-106 [facility] Work Phone: Comment on above: Fasting Glucose resu lt from 100 to 125 mg/dL suggests IMPAIRED HOMEOSTASIS per A.D.A. criteria. Neutrophils (Bld) [#/Vol] 5.3 10*3/uL 2.0-7.7 [facility] Work Phone: Neutrophils/100 WBC (Bld) 58.8 % 47-70 [facility] Work Phone: Potassium [Moles/Vol] 4.0 mmol/L 3.5-5.1 [facility] Work Phone: [phone] Protein [Mass/Vol] 8.2 g/dL 6.4-8.2 [facility] Work Phone: [phone] Sodium [Moles/Vol] 137 mmol/L 136-145 [facility] Work Phone: WBC (Bld) [#/Vol] 9.0 10*3/uL 4.4-11.0 [facility] Work Phone: [phone] Blood erythrocytes count (nu mber/volume)on 04-25-2021 RBC (Bld) [#/Vol] 4.98 10*6/uL 4.2-5.4 [facility] Work Phone: Blood hemoglobin measurement (mass/volume)on 04-25-2021 Hemoglobin (Bld) [Mass/Vol] 13.4 g/dL 12.0-15.0 [facility] Work Phone: [phone] Blood lymphocytes/100 leukoc yteson 04-25-2021 Lymphocytes/100 WBC (Bld) 33.1 % 19-41 [facility] Work Phone: Blood monocytes/100 leukocyt eson 04-25-2021 Monocytes/100 WBC (Bld) 6.7 % 0-10 [facility] Work Phone: Blood platelet mean volumeon 04-25-2021 Platelet mean volume (Bld) [Entitic vol] 9.9 fL 6.2-12.0 [facility] Work Phone: Determination of erythrocyte mean corpuscular volume (MCV)on 04-25-2021 MCV (RBC) [Entitic vol] 85.1 fL 81-99 [facility] Work Phone: Hematocrit Auto (Bld) [Volum e fraction]on 04-25-2021 Hematocrit (Bld) [Volume fraction] 42.4 % 37-47 [facility] Work Phone: Iron measurement (mass/mass) on 04-25-2021 Iron (Unsp spec) [Mass/Mass] 147 ug/dL 50-170 [facility] Work Phone: Laboratory - Chemistry and C hemistry - challengeon 04-25-2021 ALP [Catalytic activity/Vol] 111 U/L 45-117 [facility] Work Phone: ALT [Catalytic activity/Vol] 27 U/L 13-56 [facility] Work Phone: CO2 [Moles/Vol] 25.0 mmol/L 21.0-32.0 [facility] Work Phone: Cobalamin (Vitamin B12) [Mass/Vol] 265 pg/mL 211-911 [facility] Work Phone: Globulin (S) [Mass/Vol] 4.3 g/dL 2.2-4.2 [facility] Work Phone: Urea nitrogen/Creatinine [Mass ratio] 11.6 mg/mg 10-20 [facility] Work Phone: Laboratory - Hematology and Cell countson 04-25-2021 Erythrocyte distribution width (RBC) [Entitic vol] 44.1 fL 35.1-43.9 [facility] Work Phone: Erythrocyte distribution width (RBC) [Ratio] 14.3 % 11.6-14.6 [facility] Work Phone: Immature granulocytes/100 WBC (Bld) 0.200 % 0.0-0.9 [facility] Work Phone: Comment on above: IG% - Immature Granu locytes (promyelocytes, myelocytes and metamyelocytes) > 1% indicates that a LEFT SHIFT is Present. MCH (RBC) [Entitic mass] 26.9 pg 27.0-32.0 [facility] Work Phone: Nucleated RBC/100 WBC (Bld) [Ratio] 0 % 0-5 [facility] Work Phone: MCHC Auto (RBC) [Mass/Vol]on 04-25-2021 MCHC (RBC) [Mass/Vol] 31.6 g/dL 32-36 [facility] Work Phone: No Panel Informationon 04-25 Estimated GFR (MDRD) Amer 92 mL/min >60 [facility] Work Phone: Comment on above: GFR Calc Estimated GFR (MDRD) Non-Af Amer 76 mL/min >60 [facility] Work Phone: Comment on above: Non- GFR Calc Thyroid Stimulating Hormone (TSH) 2.98 uIU/mL 0.358-3.74 [facility] Work Phone: Vitamin D 25-Hydroxy 17.6 ng/mL [facility] Work Phone: Comment on above: Vitamin D 25(OH) Sta tus Range Deficiency <20 ng/mL (50nmol/L) Insufficiency 20 - 30 ng/mL (50 - 75 nmol/L) Sufficiency 30 - 100 ng/mL (75 - 250 nmol/L) Toxicity >100 ng/mL (>250 nmol/L) Platelets bldon 04-25-2021 Platelets (Bld) [#/Vol] 468 10*3/uL 150-450 [facility] Work Phone: Serum or plasma albumin fidencio urement (mass/volume)on 04-25-2021 Albumin [Mass/Vol] 3.9 g/dL 3.2-5.0 [facility] Work Phone: Serum or plasma albumin/glob ulin mass ratioon 04-25-2021 Albumin/Globulin [Mass ratio] 0.9 {ratio} 0.9-2.4 [facility] Work Phone: Serum or plasma calcium fidencio urement (mass/volume)on 04-25-2021 Calcium [Mass/Vol] 9.8 mg/dL 8.5-10.1 [facility] Work Phone: Serum or plasma creatinine m easurement (mass/volume)on 04-25-2021 Creatinine [Mass/Vol] 0.95 mg/dL 0.55-1.02 [facility] Work Phone: Comment on above: The validity of the calculated GFR & GFRAA in patients over 70 years has not been determined. Clinical correlation is essential. Serum or plasma urea nitroge n measurement (mass/volume)on 04-25-2021 Urea nitrogen [Mass/Vol] 11 mg/dL 7-18 [facility] Work Phone: Thin prep Papanicolaou smear with manual screeningon 04-25-2021 Thin prep Papanicolaou smear with manual screening 19 U/L 15-37 [facility] Work Phone: Thin prep Papanicolaou smear with manual screening 6 5-15 [facility] Work Phone: Vital Signs Date Time Vital Sign Value Performing Clinician Faci lity 10-16-2024 14:25-0400 Diastolic blood pressure 77 mm[Hg] Dr. Vasquez Roy MD Work Phone: [facility] 10-16-2024 14:25-0400 Systolic blood pressure 114 mm[Hg] Dr. Vasquez Roy MD Work Phone: [facility] 10-16-2024 13:16-0400 Body temperature 97.9 [degF] Dr. Vasquez Roy MD Work Phone: [facility] 10-16-2024 13:16-0400 Heart rate 87 /min Dr. Vasquez Roy MD Work Phone: [facility] [facility] 10-16-2024 13:16-0400 Respiratory rate 18 /min Dr. Vasquez Roy MD Work Phone: [facility] 10-16-2024 13:16-0400 SaO2% (BldA) [Mass fraction] 100 % Dr. Vasquez Roy MD Work Phone: [facility] 10-16-2024 09:20-0400 Body temperature 97.2 [degF] Dr. Vasquez Roy MD Work Phone: 4(052)782-897120 [address] 10-16-2024 09:20-0400 Diastolic blood pressure 69 mm[Hg] Dr. Vasquez Roy MD Work Phone: 2(933)086-511636 [place] [address] 10-16-2024 09:20-0400 Heart rate 97 /min Dr. Vasquez Roy MD Work Phone: 3(514)877-371436 [place] [address] 10-16-2024 09:20-0400 Respiratory rate 18 /min Dr. Vasquez Roy MD Work Phone: 8(621)296-507620 [address] 10-16-2024 09:20-0400 SaO2% (BldA) [Mass fraction] 100 % Dr. Vasquez Roy MD Work Phone: [facility] 10-16-2024 09:20-0400 Systolic blood pressure 108 mm[Hg] Dr. Vasquez Roy MD Work Phone: [facility] 10-16-2024 08:39-0400 Body height 152.[address] Vasquez Roy MD Work Phone: 2(217)772-035521 [place] [address] 10-16-2024 08:39-0400 Body mass index (BMI) [Ratio] 22.4 kg/m2 Dr. Vasquez Roy MD Work Phone: 7(360)777-657336 [place] [address] 10-16-2024 08:39-0400 Body weight [address] Vasquez Roy MD Work Phone: 7(451)318-337320 [address] 10-01-2024 15:48-0400 Body height 152.[address] Vasquez Roy MD Work Phone: [facility] 10-01-2024 15:48-0400 Body mass index (BMI) [Ratio] 22.6 kg/m2 Dr. Vasquez Roy MD Work Phone: [facility] 10-01-2024 15:48-0400 Body temperature 97.6 [degF] Dr. Vasquez Roy MD Work Phone: [facility] 10-01-2024 15:48-0400 Body weight 52.[address] Vasquez Roy MD Work Phone: [facility] 10-01-2024 15:48-0400 Diastolic blood pressure 58 mm[Hg] Dr. Vasquez Roy MD Work Phone: [facility] 10-01-2024 15:48-0400 Heart rate 88 /min Dr. Vasquez Roy MD Work Phone: [facility] 10-01-2024 15:48-0400 Respiratory rate 16 /min Dr. Vasquez Roy MD Work Phone: [facility] 10-01-2024 15:48-0400 SaO2% (BldA) [Mass fraction] 99 % Dr. Vasquez Roy MD Work Phone: [facility] 10-01-2024 15:48-0400 Systolic blood pressure 117 mm[Hg] Dr. Vasquez Roy MD Work Phone: [facility] 06-30-2024 15:59-0400 Body temperature 97.9 [degF] Dr. Vasquez Roy MD Work Phone: [facility] 06-30-2024 15:59-0400 Diastolic blood pressure 79 mm[Hg] Dr. Vasquez Roy MD Work Phone: [facility] 06-30-2024 15:59-0400 Heart rate 78 /min Dr. Vasquez Roy MD Work Phone: [facility] 06-30-2024 15:59-0400 Respiratory rate 18 /min Dr. Vasquez Roy MD Work Phone: [facility] 06-30-2024 15:59-0400 SaO2% (BldA) [Mass fraction] 98 % Dr. Vasquez Roy MD Work Phone: [facility] 06-30-2024 15:59-0400 Systolic blood pressure 117 mm[Hg] Dr. Vasquez Roy MD Work Phone: [facility] 06-30-2024 12:58-0400 Body height 152.[address] Vasquez Roy MD Work Phone: [facility] 06-30-2024 12:58-0400 Body mass index (BMI) [Ratio] 22.6 kg/m2 Dr. Vasquez Roy MD Work Phone: [facility] 06-30-2024 12:58-0400 Body weight 52.[address] Vasquez Roy MD Work Phone: [facility] 01-28-2024 11:44-0500 Body height 154.3 cm Fidelia Pugh APRN.CNM Work Phone: [facility] 01-28-2024 11:44-0500 Body mass index (BMI) [Ratio] 22.29 kg/m2 Fidelia Pugh APRN.CNM Work Phone: [facility] 01-28-2024 11:44-0500 Body weight 53.07 kg Fidelia Pugh APRN.CNM Work Phone: [facility] 01-28-2024 11:44-0500 Diastolic blood pressure 72 mm[Hg] Fidelia Pugh APRN.CNM Work Phone: [facility] 01-28-2024 11:44-0500 Systolic blood pressure 114 mm[Hg] Fidelia Pugh APRN.CNM Work Phone: [facility] 12-25-2022 15:33-0500 Body weight 52.16 kg Fideliamuna Pugh APRN.CNM Work Phone: [facility] 12-25-2022 15:33-0500 Diastolic blood pressure 66 mm[Hg] Fidelia Keaton HAND KNITTER.CNM Work Phone: [facility] 12-25-2022 15:33-0500 Systolic blood pressure 100 mm[Hg] Fideliaveronique Pugh HAND KNITTER.CNM Work Phone: [facility] 04-05-2021 14:44-0500 Body weight 44.[address] Mike Roy Work Phone: [facility] Work Phone: Encounters Encounter Date Encounter Type Care Provider Facility Start: 10-30-2024 ambulatory Vasquez Roy [facility] lity:[facility] Start: 10-16-2024 End: 10-16-2024 Admission to same day surgery center Dr. Juancarlos Mayorga DP -Route Deliverer Work Phone: Start: 10-16-2024 End: 10-16-[address] Vasquez Roy MD Work Phone: -[facility] Start: 10-08-2024 End: 10-08-[address] Vasquez Roy MD Work Phone: -[facility] Start: 10-08-2024 End: 10-08-[address] Vasquez Roy MD -[facility] Start: 10-08-2024 End: 10-08-2024 ambulatory Vasquez Roy Facility:[facility] Start: 10-05-2024 Encounter for other preprocedural examination Vasquez Roy [facility] Start: 10-01-2024 End: 10-01-2024 Patient encounter procedure Adeola CARREON -[facility] Work Phone: Start: 10-01-2024 End: 10-01-[address] Vasquez Roy MD Work Phone: -[facility] Start: 09-29-2024 End: 09-29-[address] Vasquez Roy MD Work Phone: -Laboratory [facility] Start: 09-29-2024 End: 09-29-[address] Vasquez Roy MD -[facility] Start: 09-29-2024 End: 09-29-2024 ambulatory Vasquez Roy Facility:[facility] Start: 08-24-2024 End: 08-24-2024 Telephone encounter Fidelia Keaton PANTOJA Work Phone: OB/Gynecology Comment on above: Surgery/OCP Start: 06-30-2024 End: 06-30-2024 Emergency department patient visit Dr. Vasquez Roy MD Work Phone: -Emergency Department Work Phone: Start: 05-20-2024 End: 05-20-[address] Vasquez Roy MD Work Phone: [facility] Work Phone: Start: 05-20-2024 End: 05-20-2024 Patient encounter procedure Avtar Kong DO -Nuclear Medicine, [facility] Work Phone: Start: 05-20-2024 End: 05-20-2024 ambulatory Avtar Kong Facility:[facility] Start: 04-23-2024 End: 04-23-[address] Vasquez Roy MD Work Phone: [facility] Work Phone: Start: 04-23-2024 End: 04-23-2024 Patient encounter procedure Avtar Kong DO -Ultrasound, [facility] Work Phone: Start: 04-23-2024 End: 04-23-2024 ambulatory Avtar Kong Facility:[facility] Start: 04-14-2024 End: 04-14-[address] Vasquez Roy MD Work Phone: [facility] Work Phone: Start: 04-14-2024 End: 04-14-2024 Patient encounter procedure Avtar Kong DO -Laboratory Work Phone: Start: 04-14-2024 End: 04-14-2024 ambulatory Avtar Luann Facility:[facility] Start: 04-03-2024 End: 04-03-2024 Patient encounter procedure Avtar Kong -[facility] Work Phone: Start: 04-03-2024 End: 04-03-2024 ambulatory Avtar Luann Facility:[facility] Start: 01-28-2024 End: 01-28-2024 ambulatory FIEDLIAVERONIQUE PUGH Facility:[facility] Start: 01-28-2024 End: 01-28-2024 Patient encounter procedure Fidelia Pugh APRN.CNM Work Phone: OB/Gynecology Comment on above: Encounter for gyneco logical examination (general) (routine) without abnormal findings (Primary Dx); Intellectual disability; control counseling; Menstrual suppression Start: 01-28-2024 End: 01-28-2024 Patient encounter status Fidelia Pugh APRN.CNM Work Phone: [facility] Start: 05-14-2023 End: 05-14-[address] Vasquez Roy Work Phone: [facility] Work Phone: Start: 05-14-2023 End: 05-14-[address] Vasquez Roy Work Phone: [facility] Work Phone: Start: 04-23-2023 End: 04-23-[address] Mike Roy Work Phone: [facility] Work Phone: Start: 04-23-2023 End: 04-23-[address] Mike Roy Work Phone: [facility] Work Phone: Start: 04-17-2023 End: 04-17-[address] Mike Roy Work Phone: [facility] Work Phone: Start: 04-17-2023 End: 04-17-[address] Mike Roy Work Phone: [facility]-Radiology, [facility] Work Phone: Start: 04-15-2023 End: 04-15-[address] Mike Roy Work Phone: [facility] Work Phone: Start: 04-15-2023 End: 04-15-[address] Mike Roy Work Phone: [facility] Work Phone: Start: 04-09-2023 End: 04-09-[address] Mike Roy Work Phone: [facility] Work Phone: Start: 04-09-2023 End: 04-09-[address] Mike Roy Work Phone: [facility] Work Phone: Start: 04-03-2023 End: 04-03-[address] Mike Roy Work Phone: [facility] Work Phone: Start: 12-28-2022 Refill Fidelia Pugh APRN.CNM Work Phone: OB/Gynecology Comment on above: Refill Request Start: 12-25-2022 End: 12-25-2022 Patient encounter procedure Fidelia Pugh APRN.CNM Work Phone: OB/Gynecology Comment on above: Encounter for gyneco logical examination (general) (routine) with abnormal findings (Primary Dx); control counseling; Menstrual suppression; Intellectual disability Start: 12-25-2022 End: 12-25-2022 Patient encounter status Fidelia Pugh APRN.CNM Work Phone: [facility] Start: 08-16-2022 End: 08-16-2022 ambulatory [facility] Work Phone: Start: 08-16-2022 End: 08-16-2022 Patient encounter procedure [facility] Start: 06-04-2022 End: 06-04-[address] [facility] Start: 03-08-2022 Telephone encounter Danuta yap MD Work Phone: OB/Gynecology Comment on above: Medication Problem Start: 02-19-2022 Patient encounter procedure [facility] Start: 02-15-2022 End: 02-15-2022 ambulatory [facility] Work Phone: Start: 02-15-2022 End: 02-15-2022 Patient encounter procedure [facility] Start: 01-22-2022 Refill Fidelia Pugh APRN.CNM Work Phone: OB/Gynecology Comment on above: Refill Request Start: 01-22-2022 End: 01-22-[address] [facility] Start: 01-02-2022 End: 01-02-2022 ambulatory [facility] Work Phone: Start: 01-02-2022 End: 01-02-2022 Patient encounter procedure [facility] Start: 12-22-2021 End: 12-22-2021 Discharged Recurring [facility]-Physical Therapy Start: 11-29-2021 End: 11-29-2021 ambulatory [facility] Work Phone: Start: 11-29-2021 End: 11-29-2021 Patient encounter procedure [facility] Start: 04-25-2021 End: 04-25-[address] Mike Roy Work Phone: [facility] Start: 04-05-2021 End: 04-05-[address] Mike Roy Work Phone: [facility] Start: 01-25-2021 End: 01-25-[address] Mike Roy Work Phone: [facility] Procedures Date Procedure Procedure Detail Performing Clinician Start: 10-16-2024 Fluoroscopic guidance Marilu Roy MD Work Phone: Start: 10-16-[address] Andrea Roy MD Work Phone: Start: 10-08-[address] Santino Roy MD Work Phone: Start: 09-29-2024 Vitamin D, 25-hydrox y measurement Dr. Vasquez Roy MD Work Phone: Comment on above: Vitamin D StatusDefi ciency: <20 ng/mL (50nmol/L)Insufficiency: 20-30 ng/mL (50-75 nmol/L)Sufficiency: 30-100 ng/mL (75-250 nmol/L)Toxicity: >100 ng/mL (>250 nmol/L) Start: 06-30-2024 X-ray of chest, PA a nd lateral views Dr. Vasquez Roy MD Work Phone: Start: 06-30-2024 D-dimer assay, quantitative Dr. Vasquez Roy MD Work Phone: Comment on above: NORMAL D-Dimer level (<0.50) indicates no DVT or PE. Start: 06-30-[address] Vasquez Roy MD Work Phone: Start: 05-20-2024 Radionuclide study o f abdomen Dr. Vasquez Roy MD Work Phone: Start: 04-23-[address] Vasquez Roy MD Work Phone: Start: 05-14-2023 Radionuclide gastric emptying study Dr. Vasquez Roy Work Phone: Start: 04-23-2023 Radionuclide gastric emptying study Dr. Mike Roy Work Phone: Start: 04-17-2023 Diagnostic radiograp hy of abdomen Dr. Mike Roy Work Phone: Start: 04-15-2023 Diagnostic radiograp hy of abdomen Dr. Mike Roy Work Phone: Start: 02-19-2022 Plain chest X-ray Start: 01-02-2022 Plain X-ray of toe Start: 11-29-2021 Radiography of thora cic spine Plan of Treatment Date Care Activity Detail Author Start: 07-16-2027 Urine microalbumin profile DTaP,Tdap,Td Vaccine (8 - Td or Tdap) [facility] Start: 01-29-2025 End: 01-29-2025 Patient encounter procedure 01/29/2025 4:00 PM EST Office Visit OB/Gynecology [address] [place] [address] Fidelia Pugh APRN.CNM [address] [place] [address] Annual OB/Gynecology Comment on above: Annual Start: 01-27-2025 End: 01-27-2025 Patient encounter procedure 01/27/2025 10:45 AM EST Office Visit OB/Gynecology [address] [place] [address] Fidelia Pugh APRN.CNM [address] [place] [place] [address] Annual OB/Gynecology Comment on above: Annual Start: 10-16-2024 [facility] Start: 10-16-2024 X-ray of foot, two views Foot 2 View s [facility] Start: 10-16-2024 XR Foot 2 Views [facility] Start: 10-16-2024 Arthrodesis Arthrodesis (Left) [facility] Start: 10-16-2024 Fluoroscopic guidance O.R. Fluoro fo r C-Arm [facility] Start: 10-16-2024 X-ray of foot, two views Foot 2 View s [facility] Start: 10-12-2024 Influenza vaccination Influenza Vacc ine (#1) [facility] Start: 06-30-2024 End: 06-30-2024 [facility] Start: 06-30-2024 [facility] Start: 02-12-2024 Medicare Advantage Annual Wellness Visit Medicare Advantage Annual Wellness Visit [facility] Start: 10-13-2023 Covid-19 Vaccine ( season) Covid-19 Vaccine ( season) [facility] Start: 10-13-2023 Influenza vaccination Influenza Vacc ine (#1) [facility] Start: 02-11-2022 DEPRESSION ASSESSMENT DEPRESSION ASS ESSMENT [facility] Start: 11-06-2021 COVID-19 VACCINE (5 - Booster for Moderna series) COVID-19 VACCINE (5 - Booster for Moderna series) [facility] Start: 10-12-2021 Influenza vaccination INFLUENZA (#1) [facility] Start: 02-11-2021 DEPRESSION ASSESSMENT DEPRESSION ASS ESSMENT [facility] Start: 01-09-2017 PAP TESTING PAP TESTING [facility] Start: 01-09-2017 Screening for malign ant neoplasm of cervix Cervical Cancer Screening [facility] Start: 01-09-2015 Urine microalbumin profile DTAP,TDAP,TD (1 - Tdap) [facility] Start: 01-09-2014 Anxiety Screening Anxiety Screening [facility] Start: 01-09-2014 Depression Screening Depression Scre ening [facility] Start: 01-09-2014 HEPATITIS C SCREENING HEPATITIS C [facility] Start: 01-09-2014 Hepatitis C screening Hepatitis C [facility] Start: 01-09-2014 HIV SCREENING HIV SCREENING [facility] Start: 01-09-2014 HIV screening HIV Screening [facility] Start: 01-09-2010 PEDS TO ADULT TRANSI TION ANNUAL ASSESSMENT PEDS TO ADULT TRANSITION ANNUAL ASSESSMENT [facility] Start: 2008 PEDS TO ADULT TRANSI TION INITIAL DISCUSSION PEDS TO ADULT TRANSITION INITIAL DISCUSSION [facility] Start: 01-09-2007 HPV VACCINE (1 - 2-d ose series) HPV VACCINE (1 - 2-dose series) [facility] Start: 1996 HEPATITIS B (1 of 3 - 3-dose series) HEPATITIS B (1 of 3 - 3-dose series) [facility] NEXPLANON INSERTION NEXPLANON IN SERTION Procedures Routine control counseling Ordered: 12/25/2022 [facility] Work Phone: Comment on above: Ordered: 12/25/2022 Nuclear Ab [Presence ] in Serum [facility] Patient Education [facility] Work Phone: Patient referral [facility] Work Phone: Troponin T.cardiac [Mass/volume] in Serum or Plasma by High sensitivity method [facility] Immunizations Immunization Date Immunization Notes Care Provider Vicenta pandey 11-23-2022 influenza virus vacc ine, unspecified formulation Fidelia Pugh APRN.CNM Work Phone: [facility] Payers Date Payer Category Payer Self-pay [id number] 2022 Medicare (Managed Care) [facility] HMO [id number] 2022 Medicare [id number] 2021 Unknown [id number] 2018 Medicare MEDICARE MEDICAR E A AND B [id number] 2018-Present [phone] [address] [address] [place] [address] Medicare [id number] 2017 Medicaid [id number] 2009 Unknown [id number] 1997 Unknown [id number] 1954 Unknown [id number] 1954 Unknown [id number] 479 Medicare [id number] Unknown [id number] 462 Unknown [id number] 462 Unknown [id number] 462 Unknown [id number] 462 Unknown [id number] 462 Unknown [id number] 462 Unknown [id number] 462 Unknown [id number] 462 Unknown [id number] 462 Unknown [id number] 462 Social History Date Type Detail Facility Start: 04-05-2021 End: 10-09-2024 Tobacco smoking status NHIS Unknown if ever smoked [facility] Start: 1995 Sex Assigned At Female W [facility] Start: 11-01-2021 Tobacco smoking stat us NHIS Never smoked tobacco [facility] Start: 11-01-2021 Tobacco use and exposure Smoke less tobacco non-user [facility] Start: 11-01-2021 End: 01-28-2024 Alcohol intake Lifetime non-drinker (finding) [facility] Start: 10-02-2019 History SDOH Alcohol Frequency 1 [facility] Start: 1995 Sex Assigned At Not on file [facility] Start: 10-02-2019 End: 12-18-2022 History of Social function [facility] Work Phone: Start: 10-02-2019 End: 12-18-2022 Alcohol Use Disorder Identification Test - Consumption [AUDIT-C] [facility] Work Phone: How often to you hav e a drink containing alcohol? Never [facility] Work Phone: Average Number of Drinks Not on file [facility] Start: 04-03-2023 Tobacco smoking stat us NHIS Current Heavy tobacco smoker [facility] Start: 04-29-2024 End: 05-26-2024 Sex Female (finding) [facility] Goals Date Patient Goal Desired Activity /State Mental Status Date Assessment Result Facility 10-16-2024 Cognitive function Light Pain [facility] Work Phone: 10-16-2024 Cognitive function Voice/Name [facility] Work Phone: 06-30-2024 Cognitive function Level Of Cons ciousness Awake;Alert;Follows Commands [facility] Work Phone: Clinical Notes 01-22-2022 to 10-16-2024 Note Date & Type Note Facility 10-16-2024 Consult note [facility] 10-16-2024 Consult note Note Date/Time October 16, 2024 9:23am [facility] Medical Records Department [address] [place] [address] Pre-Anesthesia Evaluation 10/16/2420 MR#: [id number] Acct: [id number] Name: ROCHELLE HOWARD Rep #[id number] : 1995 29 From: [employer] PCP: Dr. Vasquez Roy MD Status :REG SDC Y Race: C Location: [place] [address] ASA Classification* ASA Classification ASA Classification: 3 Assessment & Plan Anesthesia* Anesthesia Assessment Anesthesia Assessment: Discussed sedation and/or anesthesia options, risks, benefits, and alternatives with patient/parents/legal guardian/POA. Questions invited. The patient/parents/legal guardian/POA seems to understand and agrees to proceedwith anesthesia plan. Reviewed the physical assessment, medical history, allergy history and patient home medications list prior to surgery/procedure/anesthetic and documented any changes. Performed airway and anesthesia risk assessments. Anesthesia Type Anesthesia Type: General and Block Anesthesia Focused Assessment* Temperature: 97.2 F Pulse Rate: 97 Blood Pressure: 108/69 Respiratory Rate: 18 Pulse Ox: 100 Airway Assessment Mouth opens: >3 cm Mallampati Score: II Labs Anesthesia Preop lab: CBC WBC 10.9 K/mm3 (4.4-11.0) 09/29/24 15:30 09/29/24 RBC 5.19 M/mm3 (4.2-5.4) 09/29/24 15:30 09/29/24 Hgb 13.9 g/dL (12.0-15.0) 09/29/24 15:30 09/29/24 Hct 44.3 % (37-47) 09/29/24 15:30 09/29/24 Plt Count 420 K/mm3 (150-450) 09/29/24 15:30 09/29/24 CHEMISTRY Potassium 4.7 mmol/L (3.3-5.1) 09/29/24 15:30 09/29/24 Sodium 139 mmol/L (133-145) 09/29/24 15:30 09/29/24 Magnesium 2.0 mg/dL (1.6-2.6) 02/15/22 15:18 01/05/23 BUN 15 mg/dL (4-19) 09/29/24 15:30 09/29/24 Creatinine 0.79 mg/dL (0.70-1.20) 09/29/24 15:30 09/29/24 Glucose 98 mg/dL (70-99) 09/29/24 15:30 09/29/24 TSH 2.33 uIU/mL (0.358-3.74) 02/15/22 15:18 COAG Pre-Assessment Diagnosis/Proposed Procedure Planned Operative Procedure(s): TBD Anesthesia History Anesthesia History - assembler flexible leads: Anesthesia History - assembler flexible leads Hx Hospitalization No 10/09/24 08:14 Any Problems With Anesthesia No 10/09/24 08:14 Cholinesterase deficiency No 10/09/24 08:14 You/Your Family Experience No 10/09/24 08:14 fever (hyperthermia) with Relationship Recent Exposure to Contagious No 10/16/24 08:39 Disease Does patient have nerve No 10/09/24 08:14 stimulator Patient instructed to have device shut off --Does patient have Pacemaker No 10/16/24 08:39 or ICD? When Was Last Pacemaker Check QUESTION #4 FULL TEXT: You/Your Family Experience fever (hyperthermia) with Anesthesia Last Oral Intake Last Oral intake: Last Oral Intake NPO since 17:00 10/16/24 08:39 Meds taken in AM with sips of water? Meds patient instructed to take am of surgery PONV PONV - assembler flexible leads: PONV - assembler flexible leads Female Yes 10/09/24 08:14 HX of Motion Sickness No 10/09/24 08:14 HX of N/V After Surgery No 10/09/24 08:14 Non-Smoker Yes 10/09/24 08:14 Duration of Surgery greater Yes 10/09/24 08:14 than 60 minutes Number of Risk Factors 3 10/09/24 08:14 PONV Score Moderate Risk 10/09/24 08:14 Height & Weight Height & Weight: Anesthesia: Height & Weight Height 5 ft 10/16/24 08:39 Weight: 52 kg 10/16/24 08:39 Body Mass Index (BMI) 22.4 10/16/24 08:39 Respiratory Assessment Respiratory Assessment - assembler flexible leads: Respiratory Tract Infection Hx - assembler flexible leads Hx Respiratory Tract Infection No 10/09/24 08:14 STOP Sleep Apnea STOP Sleep Apnea - assembler flexible leads: STOP Sleep Apnea - assembler flexible leads Hx Hypertension No 10/09/24 08:14 Hx Sleep Apnea No 10/09/24 08:14 CPAP BIPAP Do you snore loudly (louder No 10/09/24 08:14 than talking or can be heard Do you often feel tired/ No 10/09/24 08:14 fatigued/ sleepy during daytime? Has anyone observed you stop No 10/09/24 08:14 breathing during sleep? STOP Results Negative 10/09/24 08:14 QUESTION #5 FULL TEXT : Do you snore loudly (louder than talking or can be heard through closed doors)? 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 confused, unrespo /Reproduction History /Reproductive History - assembler flexible leads: /Reproductive Hx- assembler flexible leads Hx Now No 10/09/24 08:14 Gestational Age (in weeks): EDC: Hx Hx Para Hx Section SAB No 10/09/24 08:14 Active Medications Active Medications: Current Medications Generic Name Dose Route Start Last Admin Trade Name Freq PRN Reason Stop Dose Admin Clindamycin Phosphate 900 mg in 50 mls @ 75 mls/hr 10/16/24 09:45 Cleocin IV 10/16/24 10:24 INTRAOP ONE Lactated Ringer's 1,000 mls @ 15 mls/hr 10/16/24 08:30 10/16/24 09:02 IV 15 mls/hr .Q48H DHAVAL Administration PFSH Medical History (Updated 10/09/24 @ 08:23 by Paige Echeverria) Teeth grinding Wears glasses Anxiety Diabetes Back pain Migraine headache Difficulty swallowing Constipation Non-smoker GERD (gastroesophageal reflux disease) Cerebral palsy Cognitive developmental delay g tube removal g tube thalfundoplication Asthma Home Medications ?Medication ?Instructions ?Recorded ?Last Taken ?Type albuterol sulfate 90 mcg/actuation 1 - 2 puff inhalati on Q6H PRN Sob 03/22/16 10/16/24 History aerosol inhaler &/Or Wheezing cetirizine 10 mg tablet 10 mg PO DAILY 03/22/1606/05 History fluticasone propionate 110 1 puff inhalation BID 03/2210/16/24 History mcg/actuation HFA aerosol inhaler fluticasone propionate 50 1 spray NASAL BID 03/22/16 0 10/16/24 History mcg/actuation nasal spray,suspension ibuprofen 200 mg tablet 200 mg PO Q6H PRN Fever 10/28 Unknown History sumatriptan 20 mg/actuation nasal 20 mg NS DAILY PRN M IGRAINES 03/22/16 Unknown History spray amitriptyline 25 mg tablet 25 mg PO QHS 04/04/2210/15 History cyanocobalamin (vitamin B-12) 1,000 mcg PO DAILY 04/0410/15/24 History 1,000 mcg tablet,extended release ivermectin 1 % topical cream 1 applic topical DAILY SD N FACE 04/04/22 10/15/24 History ketoconazole 2 % shampoo 1 applic topical DAILY PRN S CALP 04/04/22 Unknown H istory IRRITATION ketoconazole 2 % topical cream 1 applic topical DAILY PRN skin 04/04/22 Unknown History irritation metronidazole 0.75 % topical cream 1 applic topical DA CARTER PRN skin 04/04/22 10/16/24 History irritation Lactobacillus rhamnosus GG 10 1 cap PO DAILY 06/30/24 10/15/24 History billion cell capsule (Culturelle) cholecalciferol (vitamin D3) 50 50 mcg PO DAILY 10/15/24 History mcg (2,000 unit) tablet (D3 DOTS) methylphenidate HCl 30 mg biphasic 30 mg PO DAILY 06/1210/15/24 History 30-70 capsule,extended release polyethylene glycol 3350 17 17 g PO BID #850 grams 10/15/24 Rx gram/dose oral powder (Miralax) sennosides 25 mg tablet (Ex-Lax 25 mg PO QDAY 10/01/24 10/15/24 History Maximum Strength) albuterol sulfate 2.5 mg/3 mL 2.5 mg inhalation Q6H SD N 10/09/24 Unknown History (0.083 %) solution for nebulization shortness of breat h or wheezing Allergy/AdvReac Type Severity Reaction Status Date / Time allantoin (From Orajel) Allergy Swelling Verified 10/16/24 08:36 benzalkonium chloride (From Allergy Swelling Verified 10/16/24 08:36 Orajel) benzocaine (From Orajel) Allergy Swelling Verified 10/09/24 08:11 carbamide peroxide (From Allergy Swelling Verified 10/16/24 08:36 Orajel) ceftriaxone (From Rocephin) Allergy Rash Verified 10/16/24 08:36 zinc chloride (From Orajel) Allergy Swelling Verified 10/16/24 08:36 methylphenidate (From AdvReac Unknown Verified 10/16/24 08:36 Ritalin) Family History Mother Asthma Hypertension CAD (coronary artery disease) Myocardial infarction A-fib Surgical History H/O eye surgery Hx of tonsillectomy Social History Smoking Status: Unknown if ever smoked alcohol intake: never Review of Systems (Anesthesia) ROS Narrative System reviewed and no additional complaints, except as documented. 10/16/24922 <Electronically signed by Mando Ulloa CRNA> Date _ Mando Ulloa CRNA Cosigner Signature: Date CC: ~ Signed [facility] Work Phone: [phone] Consult note [facility] Medical Records Department [address] [place] [address] Pre-Anesthesia Evaluation 10/16/24919 MR#: [id number] Acct: [id number] Name: ROCHELLE HOWARD Rep #:[id number] : 1995 From: [employer] PCP: Dr. Vasquez Roy MD Status :REG SDC Y Race: C Location: [place] [address] ASA Classification* ASA Classification ASA Classification: 3 Assessment & Plan Anesthesia* Anesthesia Assessment Anesthesia Assessment: Discussed sedation and/or anesthesia options, risks, benefits, and alternatives with patient/parents/legal guardian/POA. Questions invited. The patient/parents/legal guardian/POA seems to understand and agrees to proceedwith anesthesia plan. Reviewed the physical assessment, medical history, allergy history and patient home medications list prior to surgery/procedure/anesthetic and documented any changes. Performed airway and anesthesia risk assessments. Anesthesia Type Anesthesia Type: General and Block Anesthesia Focused Assessment* Temperature: 97.2 F Pulse Rate: 97 Blood Pressure: 108/69 Respiratory Rate: 18 Pulse Ox: 100 Airway Assessment Mouth opens: >3 cm Mallampati Score: II Labs Anesthesia Preop lab: CBC WBC 10.9 K/mm3 (4.4-11.0) 09/29/24 15:30 09/29/24 RBC 5.19 M/mm3 (4.2-5.4) 09/29/24 15:30 09/29/24 Hgb 13.9 g/dL (12.0-15.0) 09/29/24 15:30 09/29/24 Hct 44.3 % (37-47) 09/29/24 15:30 09/29/24 Plt Count 420 K/mm3 (150-450) 09/29/24 15:30 09/29/24 CHEMISTRY Potassium 4.7 mmol/L (3.3-5.1) 09/29/24 15:30 09/29/24 Sodium 139 mmol/L (133-145) 09/29/24 15:30 09/29/24 Magnesium 2.0 mg/dL (1.6-2.6) 02/15/22 15:18 02/15/22 BUN 15 mg/dL (4-19) 09/29/24 15:30 09/29/24 Creatinine 0.79 mg/dL (0.70-1.20) 09/29/24 15:30 09/29/24 Glucose 98 mg/dL (70-99) 09/29/24 15:30 09/29/24 TSH 2.33 uIU/mL (0.358-3.74) 02/15/22 15:18 COAG Pre-Assessment Diagnosis/Proposed Procedure Planned Operative Procedure(s): TBD Anesthesia History Anesthesia History - assembler flexible leads: Anesthesia History - assembler flexible leads Hx Hospitalization No 10/09/24 08:14 Any Problems With Anesthesia No 10/09/24 08:14 Cholinesterase deficiency No 10/09/24 08:14 You/Your Family Experience No 10/09/24 08:14 fever (hyperthermia) with Relationship Recent Exposure to Contagious No 10/16/24 08:39 Disease Does patient have nerve No 10/09/24 08:14 stimulator Patient instructed to have device shut off --Does patient have Pacemaker No 10/16/24 08:39 or ICD? When Was Last Pacemaker Check QUESTION #4 FULL TEXT: You/Your Family Experience fever (hyperthermia) with Anesthesia Last Oral Intake Last Oral intake: Last Oral Intake NPO since 17:00 10/16/24 08:39 Meds taken in AM with sips of water? Meds patient instructed to take am of surgery PONV PONV - assembler flexible leads: PONV - assembler flexible leads Female Yes 10/09/24 08:14 HX of Motion Sickness No 10/09/24 08:14 HX of N/V After Surgery No 10/09/24 08:14 Non-Smoker Yes 10/09/24 08:14 Duration of Surgery greater Yes 10/09/24 08:14 than 60 minutes Number of Risk Factors 3 10/09/24 08:14 PONV Score Moderate Risk 10/09/24 08:14 Height & Weight Height & Weight: Anesthesia: Height & Weight Height 5 ft 10/16/24 08:39 Weight: 52 kg 10/16/24 08:39 Body Mass Index (BMI) 22.4 10/16/24 08:39 Respiratory Assessment Respiratory Assessment - assembler flexible leads: Respiratory Tract Infection Hx - assembler flexible leads Hx Respiratory Tract Infection No 10/09/24 08:14 STOP Sleep Apnea STOP Sleep Apnea - assembler flexible leads: STOP Sleep Apnea - assembler flexible leads Hx Hypertension No 10/09/24 08:14 Hx Sleep Apnea No 10/09/24 08:14 CPAP BIPAP Do you snore loudly (louder No 10/09/24 08:14 than talking or can be heard Do you often feel tired/ No 10/09/24 08:14 fatigued/ sleepy during daytime? Has anyone observed you stop No 10/09/24 08:14 breathing during sleep? STOP Results Negative 10/09/24 08:14 QUESTION #5 FULL TEXT : Do you snore loudly (louder than talking or can be heard through closeddoors)? 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 confused, unrespo /Reproduction History /Reproductive History - assembler flexible leads: /Reproductive Hx- assembler flexible leads Hx Now No 10/09/24 08:14 Gestational Age (in weeks): EDC: Hx Hx Para Hx Section SAB No 10/09/24 08:14 Active Medications Active Medications: Current Medications Generic Name Dose Route Start Last Admin Trade Name Freq PRN Reason Stop Dose Admin Clindamycin Phosphate 900 mg in 50 mls @ 75 mls/hr 10/16/24 09:45 Cleocin IV 10/16/24 10:24 INTRAOP ONE Lactated Ringer's 1,000 mls @ 15 mls/hr 10/16/24 08:30 10/16/24 09:02 IV 15 mls/hr .Q48H DHAVAL Administration PFSH Medical History (Updated 10/09/24 @ 08:23 by Paige Echeverria) Teeth grinding Wears glasses Anxiety Diabetes Back pain Migraine headache Difficulty swallowing Constipation Non-smoker GERD (gastroesophageal reflux disease) Cerebral palsy Cognitive developmental delay g tube removal g tube thalfundoplication Asthma Home Medications ?Medication ?Instructions ?Recorded ?Last Taken ?Type albuterol sulfate 90 mcg/actuation 1 - 2 puff inhalati on Q6H PRN Sob 03/22/16 10/16/24 History aerosol inhaler &/Or Wheezing cetirizine 10 mg tablet 10 mg PO DAILY 03/22/1606/05 History fluticasone propionate 110 1 puff inhalation BID 03/2210/16/24 History mcg/actuation HFA aerosol inhaler fluticasone propionate 50 1 spray NASAL BID 03/22/16 0 10/16/24 History mcg/actuation nasal spray,suspension ibuprofen 200 mg tablet 200 mg PO Q6H PRN Fever 10/28 Unknown History sumatriptan 20 mg/actuation nasal 20 mg NS DAILY PRN M IGRAINES 03/22/16 Unknown History spray amitriptyline 25 mg tablet 25 mg PO QHS 04/04/2210/15 History cyanocobalamin (vitamin B-12) 1,000 mcg PO DAILY 04/0410/15/24 History 1,000 mcg tablet,extended release ivermectin 1 % topical cream 1 applic topical DAILY SD N FACE 04/04/22 10/15/24 History ketoconazole 2 % shampoo 1 applic topical DAILY PRN S CALP 04/04/22 Unknown H istory IRRITATION ketoconazole 2 % topical cream 1 applic topical DAILY PRN skin 04/04/22 Unknown History irritation metronidazole 0.75 % topical cream 1 applic topical DA CARTER PRN skin 04/04/22 10/16/24 History irritation Lactobacillus rhamnosus GG 10 1 cap PO DAILY 06/30/24 10/15/24 History billion cell capsule (Culturelle) cholecalciferol (vitamin D3) 50 50 mcg PO DAILY 10/15/24 History mcg (2,000 unit) tablet (D3 DOTS) methylphenidate HCl 30 mg biphasic 30 mg PO DAILY 06/1210/15/24 History 30-70 capsule,extended release polyethylene glycol 3350 17 17 g PO BID #850 grams 10/15/24 Rx gram/dose oral powder (Miralax) sennosides 25 mg tablet (Ex-Lax 25 mg PO QDAY 10/01/24 10/15/24 History Maximum Strength) albuterol sulfate 2.5 mg/3 mL 2.5 mg inhalation Q6H SD N 10/09/24 Unknown History (0.083 %) solution for nebulization shortness of breat h or wheezing Allergy/AdvReac Type Severity Reaction Status Date / Time allantoin (From Orajel) Allergy Swelling Verified 10/16/24 08:36 benzalkonium chloride (From Allergy Swelling Verified 10/16/24 08:36 Orajel) benzocaine (From Orajel) Allergy Swelling Verified 10/09/24 08:11 carbamide peroxide (From Allergy Swelling Verified 10/16/24 08:36 Orajel) ceftriaxone (From Rocephin) Allergy Rash Verified 10/16/24 08:36 zinc chloride (From Orajel) Allergy Swelling Verified 10/16/24 08:36 methylphenidate (From AdvReac Unknown Verified 10/16/24 08:36 Ritalin) Family History Mother Asthma Hypertension CAD (coronary artery disease) Myocardial infarction A-fib Surgical History H/O eye surgery Hx of tonsillectomy Social History Smoking Status: Unknown if ever smoked alcohol intake: never Review of Systems (Anesthesia) ROS Narrative System reviewed and no additional complaints, except as documented. 10/16/24 09 SHOP FOREMAN> Date _ Mando Kellybitt SHOP FOREMAN Cosigner Signature: Date CC: ~ Signed [facility]07-14-2025 Telephone encounter Note* Telephone Encounter - Adeola Browning RN - 08/24/2024 1:32 PM EDT Patient's mother, Say, notified. Adeola Browning RN [facility]07-14-2025 Miscellaneous Notes* Telephone Encounter - Adeola Browning RN - 08/24/2024 1:32 PM EDT Patient's mother, Say, notified. Adeola Browning RN * Telephone Encounter - Fidelia Pugh APRN.CNM - 08/24/2024 12:29 PM EDT Sorry to hear she is having surgery but agree stopping one month prior. It is fine for her to be off the pill I just know she does not like getting her period. Hope everything goes well. Fidelia Pugh APRN.CNM * Telephone Encounter - Karla Rivera RN - 08/24/2024 10:58 AM EDT Pt's mother calls stating Pt is having foot surgery (cutting muscle in lower leg-Pt has CP-will help with better ROM/removing some bones in toes as well) left leg on 10/16/24 and waiting 6 weeks to 2 months until right leg. Mother states she has to be off OCP minimum 1 month prior to surgery. [facility] will be doing the surgery. Surgery physical in September will be done with Dr. Roy. Started period Saturday. Pt's mother asking if there is anything to be concerned about leaving her off. Has been on since age 16. Please advise. Karla Rivera RN [facility] Telephone encounter Note * Telephone Encounter - Fidelia Pugh APRN.CNM - 08/24/2024 12:29 PM EDT Sorry to hear she is having surgery but agree stopping one month prior. It is fine for her to be off the pill I just know she does not like getting her period. Hope everything goes well. Fidelia Pugh APRN.CNM [facility]07-14-2025 Telephone encounter Note* Telephone Encounter - Karla Rivera RN - 08/24/2024 10:58 AM EDT Pt's mother calls stating Pt is having foot surgery (cutting muscle in lower leg-Pt has CP-will help with better ROM/removing some bones in toes as well) left leg on 10/16/24 and waiting 6 weeks to 2 months until right leg. Mother states she has to be off OCP minimum 1 month prior to surgery. [facility] will be doing the surgery. Surgery physical in September will be done with Dr. Roy. Started period Saturday. Pt's mother asking if there is anything to be concerned about leaving her off. Has been on since age 16. Please advise. Karla Rivera RN [facility]05-20-2025 Discharge summary [facility] Medical Records Department [address] [place] [address] Emergency Department Summary 06/30/24 MR#: [id number] Acct: [id number] Name: ROCHELLE HOWARD Rep #:[id number] : 1995 29 From: Michell Strauss PCP: Dr. Vasquez Roy MD Status :REG ER Location: ED HPI History of Present Illness Chief Complaint: Chest Pain Informant: patient and parent Narrative Narrative: Patient is a 29-year-old female with history of GERD, cerebral palsy, cognitive developmental delayand remote history of PEG tube as well as Elizabeth fundoplication presenting with chest pain. She states she woke up with it this morning. It is in the center of her chest. Worse with movement and deep breathing. Feels mildly short of breath with it. Denies use one of her legs. Has some mild nausea but no vomiting. Took ibuprofen at 1230 this morning with some help with the pain. Denies any historyof DVT or PE. Is on control. Denies any swelling of her legs. Was with her father no she has had pain like this before but they have never been able to figure out what the cause of it. Did eat lunch and does not report any change or symptoms with eating. No other complaints or concerns reported at this time. Chart review shows the patient has a HIDA scan which showed gallbladder ejection fraction 46% at 27 minutes post stimulation. [facility] Medical History Constipation GERD (gastroesophageal reflux disease) Cerebral palsy Cognitive developmental delay g tube removal g tube thalfundoplication Asthma Headache Seasonal allergies SOB (shortness of breath) Lung disease Home Medications ?Medication ?Instructions ?Recorded ?Last Taken ?Type L norgest/E estradiol-E estrad 1 ea PO DAILY 03/22/16 06/30/24 History 0.15 mg-30 mcg (84)/10 mcg(7) tabs,3mos albuterol sulfate 90 mcg/actuation 1 - 2 puff inhalati on Q6H PRN Sob 03/22/16 Unknown History aerosol inhaler &/Or Wheezing cetirizine 10 mg tablet 10 mg PO DAILY 03/22/1606/12 History fluticasone propionate 110 1 puff inhalation BID 03/2206/30/24 History mcg/actuation HFA aerosol inhaler fluticasone propionate 50 1 spray NASAL BID 03/22/16 0 06/30/24 History mcg/actuation nasal spray,suspension ibuprofen 200 mg tablet 200 mg PO Q6H PRN Fever 10/28 Unknown History sumatriptan 20 mg/actuation nasal 20 mg NS DAILY PRN M IGRAINES 03/22/16 Unknown History spray amitriptyline 25 mg tablet 25 mg PO QHS 04/04/2206/29 History cyanocobalamin (vitamin B-12) 1,000 mcg PO DAILY 04/0406/30/24 History 1,000 mcg tablet,extended release ivermectin 1 % topical cream 1 applic topical DAILY SD N FACE 04/04/22 Unknown History ketoconazole 2 % shampoo 1 applic topical DAILY PRN S CALP 04/04/22 Unknown History IRRITATION ketoconazole 2 % topical cream 1 applic topical DAILY PRN skin 04/04/22 Unknown History irritation metronidazole 0.75 % topical cream 1 applic topical DA CARTER PRN skin 04/04/22 Unknown History irritation linaclotide 145 mcg capsule 145 mcg PO BID #60 caps 06/30/24 Rx (Linzess) Lactobacillus rhamnosus GG 10 1 cap PO DAILY 06/30/24 06/30/24 History billion cell capsule (Culturelle) cholecalciferol (vitamin D3) 50 50 mcg PO DAILY 06/30/24 History mcg (2,000 unit) tablet (D3 DOTS) methylphenidate HCl 30 mg biphasic 30 mg PO DAILY 06/1206/30/24 History 30-70 capsule,extended release sennosides 15 mg tablet (Laxative 15 mg PO DAILY 06/3006/30/24 History (sennosides)) Allergy/AdvReac Type Severity Reaction Status Date / Time allantoin (From Orajel) Allergy Swelling Verified 06/30/24 12:58 benzalkonium chloride (From Allergy Swelling Verified 06/30/24 12:58 Orajel) benzocaine (From Orajel) Allergy Swelling Verified 06/30/24 12:58 carbamide peroxide (From Allergy Swelling Verified 06/30/24 12:58 Orajel) ceftriaxone (From Rocephin) Allergy Rash Verified 06/30/24 12:58 zinc chloride (From Orajel) Allergy Swelling Verified 06/30/24 12:58 methylphenidate (From AdvReac Unknown Verified 06/30/24 12:58 Ritalin) Family History Mother Asthma Hypertension CAD (coronary artery disease) Myocardial infarction A-fib Surgical History H/O eye surgery Hx of tonsillectomy Social History Smoking Status: Unknown if ever smoked alcohol intake: never ROS ROS ED Constitutional Constitutional ED: Denies chills or fever(s) ENT ENT ED: Denies sore throat Cardiovascular Cardiovascular: Reports as per HPI and chest pain Respiratory/Chest Respiratory/Chest: Reports dyspnea; Denies cough or sputum Gastrointestinal Gastrointestinal: Denies abdominal pain, nausea or vomiting Musculoskeletal Musculoskeletal: Denies arthralgias or myalgias Integumentary Denies rash Neurologic Neurologic: Denies weakness Psychiatric Psychiatric: Reports anxiety Hematologic/Lymphatic Hematologic/Lymphatic: Denies easy bleeding or easy bruising EXAM Physical Exam Const Vital Signs: 06/30/24 12:58 06/30/24 14:15 06/30/24 14:35 Temperature 97.6 F L Temperature Source Temporal Pulse Rate 98 74 Respiratory Rate 16 14 Respiratory Effort Blood Pressure 136/73 H 97/82 H Blood Pressure Mean 94 87 Pulse Ox 95 97 Oxygen Delivery Method Room Air Room Air Room Air 06/30/24 14:36 06/30/24 15:00 Temperature Temperature Source Pulse Rate 72 Respiratory Rate 14 Respiratory Effort Normal Non-Labored Blood Pressure 104/83 H Blood Pressure Mean 90 Pulse Ox 97 Oxygen Delivery Method Room Air Positive well nourished and well developed General Appearance ED: well developed and NAD HEENT Reports moist mucous membranes Eyes PERRL Neck supple and no JVD Chest Wall inspection of chest normal Chest Narrative: Significant tenderness palpation along the sternum. No chest wall crepitus present. No overlying rash or skin changes. Resp normal respiratory effort and clear to auscultation bilaterally Cardio regular rate, regular rhythm and no murmurs GI normal to inspection, nondistended, normoactive bowel sounds, soft to palpation and non-tender GI Narrative: Specifically no pain in the right upper quadrant. Extremity normal to inspection Neuro oriented x3 Sensorium / Orientation: awake Motor Exam: Negative for general weakness Psych Mood & Affect: anxious Skin no rashes or lesions noted and no wounds Heart Score History: Slightly/Non-Suspicious ECG: Normal Age: Risk Factors: No Risk Factors Troponin: Score: 0 MDM MDM MDM Narrative Medical decision making narrative: Patient evaluated for chest pain that started this morning. Patient is anxious intermittently moans out with her pain. Vital signs are however are normal. Differential includes pneumothorax, PE (she is on control but otherwise low risk per Wells criteria), muscle skeletal pain, pericarditis/endocarditis. Low suspicion for ACS given patient's age and risk factors. She also possible to be referred GI pain. Patient is given Tylenol and Lidoderm patch in the ER for symptom control. Repeat evaluation patient seems more comfortable. Hemodynamically stable emergency room. Cardiac workup largely normal. D-dimer normal. Suspect the pain is muscle skeletal. Chest x-ray 2 views reviewed by myself as well as radiology does not show any acute process. Lab Data Attestation: I reviewed the patient's lab results. Labs: Laboratory Results - last 24 hr 06/30/24 14:12 WBC 8.1 RBC 4.61 Hgb 12.7 Hct 39.6 MCV 85.9 MCH 27.5 MCHC 32.1 RDW Std Deviation 39.5 RDW Coeff of Vanna 12.6 Plt Count 412 MPV 9.3 Immature Gran % (Auto) 0.200 Neut % (Auto) 55.4 Lymph % (Auto) 36.3 Atkinson % (Auto) 6.7 Eos % (Auto) 0.9 Baso % (Auto) 0.5 Absolute Neuts (auto) 4.5 Absolute Lymphs (auto) 2.94 Nucleated RBC % 0 D-Dimer Quant (PE/DVT) 0.27 Sodium 137 Potassium 4.0 Chloride 103 Carbon Dioxide 23.2 Anion Gap 12 BUN 14 Creatinine 0.82 Estim Creat Clear Calc 73.37 Est GFR (MDRD) Non-Af 100 BUN/Creatinine Ratio 16.6 Glucose 144 H Calcium 9.6 Total Bilirubin 0.51 AST 19 ALT 9 Alkaline Phosphatase 95 Troponin T High Sens < 6 Total Protein 6.9 Albumin 3.9 Globulin 3.0 Albumin/Globulin Ratio 1.3 Lipase 41 Rhythm Strip Rhythm Strip: Sinus Rhythm Rate: 97 Ectopy: None EKG Initial EKG: Attestation: I personally reviewed and interpreted this EKG as follows: Interpretation: Sinus Rhythm Comments: Normal sinus rhythm at a rate of 94 bpm Normal axis Normal intervals Normal ST segments Nonspecific T wave abnormalities No change made to prior EKG on 03/22/2016 Discharge Plan Triage Chief Complaint: Chest Pain ED Provider: Michell Foster Dx/Rx/DC Orders Clinical Impression: Anterior chest wall pain Instructions: ED Chest Wall Strain Prescriptions: No Action cyanocobalamin (vitamin B-12) 1,000 mcg tablet extended release 1,000 mcg PO DAILY ketoconazole 2 % cream 1 applic topical DAILY PRN (Reason: skin irritation) ketoconazole 2 % shampoo 1 applic topical DAILY PRN (Reason: SCALP IRRITATION) metronidazole 0.75 % cream 1 applic topical DAILY PRN (Reason: skin irritation) ivermectin 1 % cream 1 applic topical DAILY PRN (Reason: FACE) amitriptyline 25 mg tablet 25 mg PO QHS cetirizine 10 MG tablet 10 mg PO DAILY ibuprofen 200 MG tablet 200 mg PO Q6H PRN (Reason: Fever) albuterol sulfate 1 PUFF inhaler 1 - 2 puff inhalation Q6H PRN (Reason: Sob &/Or Wheezing) sumatriptan 20 MG spray,non-aerosol 20 mg NS DAILY PRN (Reason: MIGRAINES) fluticasone propionate 1 SPRAY spray,suspension 1 spray NASAL BID fluticasone propionate 1 INHALER inhaler 1 puff inhalation BID L norgest/e.estradiol-e.estrad 1 EACH tablets,dose pack,3 month 1 ea PO DAILY Culturelle 10 billion cell capsule 1 cap PO DAILY methylphenidate HCl 30 mg capsule, ER biphasic 30-70 30 mg PO DAILY cholecalciferol (vitamin D3) [D3 DOTS] 50 mcg (2,000 unit) tablet 50 mcg PO DAILY Laxative (sennosides) 15 mg tablet 15 mg PO DAILY Linzess 145 mcg capsule 145 mcg PO BID Qty: 60 0RF Primary Care Provider: Vasquez Roy Referrals: Vasquez Roy MD [Primary Care Provider] - Print Language: New Zealander Disposition Disposition: Home, Self Care What to do if you have Problems For any increased pain, shortness of breath, bleeding, nausea or vomiting, chestpain, or any unexpected problems, contact your Primary Care Provider. Call [facility] ([phone]) or report tothe closest Emergency Room. Call 911 if necessary. 06/30/24 5428 Cosigner Signature (if applicable): CC: Dr. Vasquez Roy MD ~ Signed [facility]05-20-2025 Radiology Diagnostic study note [facility] Imaging Services [address] [place] [address] Chest PA and Lateral MR#: [id number] Acct: [id number] Name: ROCHELLE HOWARD Rep #: [id number] : 1995 F 29 From: Nicky Sellers MD PCP: Dr. Vasquez Roy MD Status: REG ER Study:Chest PA and Lateral Date of Exam: 06/30/24 Exam# [id number] Ordering Dr: Doretha Foster DO EXAM: XR Chest, 2 Views CLINICAL INDICATION: CHEST PAIN TECHNIQUE: Frontal and lateral views of the chest. COMPARISON: No relevant prior studies available. FINDINGS: LUNGS AND PLEURAL SPACES: Unremarkable. No consolidation. No pneumothorax. HEART: Unremarkable. No cardiomegaly. MEDIASTINUM: Unremarkable. Normal mediastinal contour. BONES/JOINTS: Unremarkable. No acute fracture. RAD/Chest PA and Lateral IMPRESSION: No acute cardiopulmonary process. Reading [facility] CC: Dr. Vasquez Roy MD; Dr. Michell Foster DO ~ Supervisor Paper Machine: Signed [facility]05-20-2025 Discharge summary Author Michell Foster [facility] Note Date/Time June 30, 2024 3:45p m [facility] Medical Records Department [address] [place] [address] Emergency Department Summary 06/30/24 MR#: [id number] Acct: [id number] Name: ROCHELLE HOWARD Rep #:[id number] : 1995 29 From: Michell Strauss PCP: Dr. Vasquez Roy MD Status :REG ER Location: ED HPI History of Present Illness Chief Complaint: Chest Pain Informant: patient and parent Narrative Narrative: Patient is a 29-year-old female with history of GERD, cerebral palsy, cognitive developmental delay and remote history of PEG tube as well as Elizabeth fundoplication presenting with chest pain. She states she woke up with it this morning. It is in the center of her chest. Worse with movement and deep breathing. Feels mildly short of breath with it. Denies use one of her legs. Has some mild nausea but no vomiting. Took ibuprofen at 1230 this morning with some help with the pain. Denies any history of DVT or PE. Is on control. Denies any swelling of her legs. Was with her father no she has had pain like this before but they have never been able to figure out what the cause of it. Did eat lunch and does not report any change or symptoms with eating. No other complaints or concerns reported at this time. Chart review shows the patient has a HIDA scan on which showed gallbladder ejection fraction 46% at 27 minutes post stimulation. [facility] Medical History Constipation GERD (gastroesophageal reflux disease) Cerebral palsy Cognitive developmental delay g tube removal g tube thalfundoplication Asthma Headache Seasonal allergies SOB (shortness of breath) Lung disease Home Medications ?Medication ?Instructions ?Recorded ?Last Taken ?Type L norgest/E estradiol-E estrad 1 ea PO DAILY 03/22/16 06/30/24 History 0.15 mg-30 mcg (84)/10 mcg(7) tabs,3mos albuterol sulfate 90 mcg/actuation 1 - 2 puff inhalati on Q6H PRN Sob 03/22/16 Unknown History aerosol inhaler &/Or Wheezing cetirizine 10 mg tablet 10 mg PO DAILY 03/22/16/ History fluticasone propionate 110 1 puff inhalation BID 03/2206/30/24 History mcg/actuation HFA aerosol inhaler fluticasone propionate 50 1 spray NASAL BID 03/22/16 0 06/30/24 History mcg/actuation nasal spray,suspension ibuprofen 200 mg tablet 200 mg PO Q6H PRN Fever 10/28 Unknown History sumatriptan 20 mg/actuation nasal 20 mg NS DAILY PRN M IGRAINES 03/22/16 Unknown History spray amitriptyline 25 mg tablet 25 mg PO QHS 04/04/2206/29 History cyanocobalamin (vitamin B-12) 1,000 mcg PO DAILY 04/0406/30/24 History 1,000 mcg tablet,extended release ivermectin 1 % topical cream 1 applic topical DAILY SD N FACE 04/04/22 Unknown History ketoconazole 2 % shampoo 1 applic topical DAILY PRN S CALP 04/04/22 Unknown History IRRITATION ketoconazole 2 % topical cream 1 applic topical DAILY PRN skin 04/04/22 Unknown History irritation metronidazole 0.75 % topical cream 1 applic topical DA CARTER PRN skin 04/04/22 Unknown History irritation linaclotide 145 mcg capsule 145 mcg PO BID #60 caps 06/30/24 Rx (Linzess) Lactobacillus rhamnosus GG 10 1 cap PO DAILY 06/30/24 06/30/24 History billion cell capsule (Culturelle) cholecalciferol (vitamin D3) 50 50 mcg PO DAILY 06/30/24 History mcg (2,000 unit) tablet (D3 DOTS) methylphenidate HCl 30 mg biphasic 30 mg PO DAILY 06/1206/30/24 History 30-70 capsule,extended release sennosides 15 mg tablet (Laxative 15 mg PO DAILY 06/3006/30/24 History (sennosides)) Allergy/AdvReac Type Severity Reaction Status Date / Time allantoin (From Orajel) Allergy Swelling Verified 06/30/24 12:58 benzalkonium chloride (From Allergy Swelling Verified 06/30/24 12:58 Orajel) benzocaine (From Orajel) Allergy Swelling Verified 06/30/24 12:58 carbamide peroxide (From Allergy Swelling Verified 06/30/24 12:58 Orajel) ceftriaxone (From Rocephin) Allergy Rash Verified 06/30/24 12:58 zinc chloride (From Orajel) Allergy Swelling Verified 06/30/24 12:58 methylphenidate (From AdvReac Unknown Verified 06/30/24 12:58 Ritalin) Family History Mother Asthma Hypertension CAD (coronary artery disease) Myocardial infarction A-fib Surgical History H/O eye surgery Hx of tonsillectomy Social History Smoking Status: Unknown if ever smoked alcohol intake: never ROS ROS ED Constitutional Constitutional ED: Denies chills or fever(s) ENT ENT ED: Denies sore throat Cardiovascular Cardiovascular: Reports as per HPI and chest pain Respiratory/Chest Respiratory/Chest: Reports dyspnea; Denies cough or sputum Gastrointestinal Gastrointestinal: Denies abdominal pain, nausea or vomiting Musculoskeletal Musculoskeletal: Denies arthralgias or myalgias Integumentary Denies rash Neurologic Neurologic: Denies weakness Psychiatric Psychiatric: Reports anxiety Hematologic/Lymphatic Hematologic/Lymphatic: Denies easy bleeding or easy bruising EXAM Physical Exam Const Vital Signs: 06/30/24 12:58 06/30/24 14:15 06/30/24 14:35 Temperature 97.6 F L Temperature Source Temporal Pulse Rate 98 74 Respiratory Rate 16 14 Respiratory Effort Blood Pressure 136/73 H 97/82 H Blood Pressure Mean 94 87 Pulse Ox 95 97 Oxygen Delivery Method Room Air Room Air Room Air 06/30/24 14:36 06/30/24 15:00 Temperature Temperature Source Pulse Rate 72 Respiratory Rate 14 Respiratory Effort Normal Non-Labored Blood Pressure 104/83 H Blood Pressure Mean 90 Pulse Ox 97 Oxygen Delivery Method Room Air Positive well nourished and well developed General Appearance ED: well developed and NAD HEENT Reports moist mucous membranes Eyes PERRL Neck supple and no JVD Chest Wall inspection of chest normal Chest Narrative: Significant tenderness palpation along the sternum. No chest wall crepitus present. No overlying rash or skin changes. Resp normal respiratory effort and clear to auscultation bilaterally Cardio regular rate, regular rhythm and no murmurs GI normal to inspection, nondistended, normoactive bowel sounds, soft to palpation and non-tender GI Narrative: Specifically no pain in the right upper quadrant. Extremity normal to inspection Neuro oriented x3 Sensorium / Orientation: awake Motor Exam: Negative for general weakness Psych Mood & Affect: anxious Skin no rashes or lesions noted and no wounds Heart Score History: Slightly/Non-Suspicious ECG: Normal Age: </= 45 years Risk Factors: No Risk Factors Troponin: </= Normal Limit Score: 0 MDM MDM MDM Narrative Medical decision making narrative: Patient evaluated for chest pain that started this morning. Patient is anxious intermittently moans out with her pain. Vital signs are however are normal. Differential includes pneumothorax, PE (she is on control but otherwise low risk per Wells criteria), muscle skeletal pain, pericarditis/endocarditis. Low suspicion for ACS given patient's age and risk factors. She also possible to be referred GI pain. Patient is given Tylenol and Lidoderm patch in the ER for symptom control. Repeat evaluation patient seems more comfortable. Hemodynamically stable emergency room. Cardiac workup largely normal. D-dimer normal. Suspect the pain is muscle skeletal. Chest x-ray 2 views reviewed by myself as well as radiology does not show any acute process. Lab Data Attestation: I reviewed the patient's lab results. Labs: Laboratory Results - last 24 hr 06/30/24 14:12 WBC 8.1 RBC 4.61 Hgb 12.7 Hct 39.6 MCV 85.9 MCH 27.5 MCHC 32.1 RDW Std Deviation 39.5 RDW Coeff of Vanna 12.6 Plt Count 412 MPV 9.3 Immature Gran % (Auto) 0.200 Neut % (Auto) 55.4 Lymph % (Auto) 36.3 Atkinson % (Auto) 6.7 Eos % (Auto) 0.9 Baso % (Auto) 0.5 Absolute Neuts (auto) 4.5 Absolute Lymphs (auto) 2.94 Nucleated RBC % 0 D-Dimer Quant (PE/DVT) 0.27 Sodium 137 Potassium 4.0 Chloride 103 Carbon Dioxide 23.2 Anion Gap 12 BUN 14 Creatinine 0.82 Estim Creat Clear Calc 73.37 Est GFR (MDRD) Non-Af 100 BUN/Creatinine Ratio 16.6 Glucose 144 H Calcium 9.6 Total Bilirubin 0.51 AST 19 ALT 9 Alkaline Phosphatase 95 Troponin T High Sens < 6 Total Protein 6.9 Albumin 3.9 Globulin 3.0 Albumin/Globulin Ratio 1.3 Lipase 41 Rhythm Strip Rhythm Strip: Sinus Rhythm Rate: 97 Ectopy: None EKG Initial EKG: Attestation: I personally reviewed and interpreted this EKG as follows: Interpretation: Sinus Rhythm Comments: Normal sinus rhythm at a rate of 94 bpm Normal axis Normal intervals Normal ST segments Nonspecific T wave abnormalities No change made to prior EKG on 03/22/2016 Discharge Plan Triage Chief Complaint: Chest Pain ED Provider: Michell Foster Dx/Rx/DC Orders Clinical Impression: Anterior chest wall pain Instructions: ED Chest Wall Strain Prescriptions: No Action cyanocobalamin (vitamin B-12) 1,000 mcg tablet extended release 1,000 mcg PO DAILY ketoconazole 2 % cream 1 applic topical DAILY PRN (Reason: skin irritation) ketoconazole 2 % shampoo 1 applic topical DAILY PRN (Reason: SCALP IRRITATION) metronidazole 0.75 % cream 1 applic topical DAILY PRN (Reason: skin irritation) ivermectin 1 % cream 1 applic topical DAILY PRN (Reason: FACE) amitriptyline 25 mg tablet 25 mg PO QHS cetirizine 10 MG tablet 10 mg PO DAILY ibuprofen 200 MG tablet 200 mg PO Q6H PRN (Reason: Fever) albuterol sulfate 1 PUFF inhaler 1 - 2 puff inhalation Q6H PRN (Reason: Sob &/Or Wheezing) sumatriptan 20 MG spray,non-aerosol 20 mg NS DAILY PRN (Reason: MIGRAINES) fluticasone propionate 1 SPRAY spray,suspension 1 spray NASAL BID fluticasone propionate 1 INHALER inhaler 1 puff inhalation BID L norgest/e.estradiol-e.estrad 1 EACH tablets,dose pack,3 month 1 ea PO DAILY Culturelle 10 billion cell capsule 1 cap PO DAILY methylphenidate HCl 30 mg capsule, ER biphasic 30-70 30 mg PO DAILY cholecalciferol (vitamin D3) [D3 DOTS] 50 mcg (2,000 unit) tablet 50 mcg PO DAILY Laxative (sennosides) 15 mg tablet 15 mg PO DAILY Linzess 145 mcg capsule 145 mcg PO BID Qty: 60 0RF Primary Care Provider: Vasquez Roy Referrals: Vasquez Roy MD [Primary Care Provider] - Print Language: New Zealander Disposition Disposition: Home, Self Care What to do if you have Problems For any increased pain, shortness of breath, bleeding, nausea or vomiting, chestpain, or any unexpected problems, contact your Primary Care Provider. Call [facility] ([phone]) or report to the closest Emergency Room. Call 911 if necessary. 06/30/24 1545 <Electronically signed by Michell Foster DO> Cosigner Signature (if applicable): CC: Dr. Vasquez Roy MD ~ Signed [facility] Work Phone: 1(410) 368-939104-09-2025 Nuclear medicine Diagnostic study note [facility] Imaging Services [address] [place] [address] Hepatobilliary Img w/Pharm Int MR#: [id number] Acct: [id number] Name: ROCHELLE HOWARD Rep #: [id number] : 1995 F 29 From: Lucinda Aranda MD PCP: Dr. Vasquez Roy MD Status: REG CLI Study:Hepatobilliary Img w/Pharm Int Date of Exam: 05/20/24 Exam# [id number] Ordering Dr: Klarissa Kong DO PROCEDURE: HEPATOBILLIARY IMG W/PHARM INT 05/20/2024 REASON FOR EXAM: RUQ PAIN TECHNIQUE: Planar imaging of the abdomen was performed. 10 mcg Kinevac intravenously approximately 60 minutes after the radiopharmaceutical with additional anterior imaging and a region of interest drawn around the gallbladder to calculatea time-activity curve. RADIOPHARMACEUTICAL: 5.7 mCi of 99m Technetium Mebrofenin intravenously COMPARISON: Ultrasound abdomen limited dated 04/23/2024. FINDINGS: Prompt uptake of the radiopharmaceutical by the hepatocytes. Rapid appearance of activity in the small bowel.. Normal gallbladder visualization with the gallbladder identified within 30 minutes. Gallbladder Ejection Fraction: 46 % (Normal is >35%) NM/Hepatobilliary Img w/Pharm Int IMPRESSION: Gallbladder ejection fraction is 46% at 27 minutes post stimulation. Reading Location: [place] [address] CC: Dr. Vasquez Roy MD; Avtar Kong DO ~ Supervisor Paper Machine: Signed [facility]03-13-2025 Radiology Diagnostic study note [facility] Imaging Services [address] [place] [address] Abdomen Limited MR#: [id number] Acct: [id number] Name: ROCHELLE HOWARD Rep #: [id number] : 1995 F 29 From: Xu Machuca MD PCP: Dr. Vasquez Roy MD Status: REG CLI Study:Abdomen Limited Date of Exam: 04/11 05/05 Exam# [id number] Ordering Dr: Klarissa Kong DO PROCEDURE: ABDOMEN LIMITED REASON FOR EXAM: RUQ PAIN COMPARISON: None FINDINGS: Liver: Diffusely echogenic suggesting fatty infiltration. Gallbladder: No stones, sludge, wall thickening or tenderness. Common bile duct: Normal measuring 3.6 cm Pancreas: Visualized portions are sonographically unremarkable. Visualized portions of the right kidney are unremarkable. No right upper quadrant ascites. US/Abdomen Limited IMPRESSION: Features suggesting hepatic steatosis. No gallstones or biliary duct dilatation Reading Location: [facility] CC: Dr. Vasquez Roy MD; Avtar Kong DO ~ Supervisor Paper Machine: Signed [facility]02-21-2025 Evaluation note* Diagnosis Onset Date Resolution Status Admit Date GERD (gastroesophageal reflu x disease) acute April 03, 2 025 2:59pm Irritable bowel syndrome wit h constipation acute April 03, 2 025 2:59pm [facility] Work Phone: 1(636) 469-179412-17-2024 NoteHNO ID: [id number] Author: FIDELIA PUGH APRN.CNM Service: ? Author Type: Bender Machine Operator Type: Progress Notes Filed: 01/28/2024 12:13 Note Text: Rochelle is a 29 year old who presents for an annual gynecologic exam without complaints. 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 Mother is sick today. Menses: 8 weeks on, 5 days off of OCP for continuous cycle. Pain with menses. Obsessive over bleeding at times. Contraception: combined hormonal contraceptives. No warning signs. any other time. HPV vaccine: No Last Pap: Not done HPV: N/A History of abnormal pap: No Last mammogram: never Sexually active: N OB History T0 L0 SAB0 IAB0 Ectopic0 Multiple0 Live Births0 Teacher'S Assistant History LMP: 12/23/2023 (Approximate), Having periods Age at Menarche: Age at First : Age at Menopause: Teacher'S Assistant History Comments: Sexual Activity: Never; No partner [...] Never Smokeless tobacco: Never Vaping Use Vaping status: Never Used Substance Use Topics Alcohol use: Never Drug use: Never REVIEW OF SYSTEMS Abdomen: No abdominal pain, nausea, vomiting, diarrhea, or constipation. No bloating, early satiety, indigestion, or increased flatulence. Bladder: No dysuria, gross hematuria, urinary frequency, urinary urgency, or incontinence. Breast: No breast lumps, nipple d/c, overlying skin changes, redness or skin retraction. Allergies and current medication updated:Yes SENSITIVE EXAM: The sensitive examination was discussed with the Patient or Patient's Authorized Horse Rider. As applicable, any other physician, advance practice provider, medical student, or other health professional student that will be observing or involved in the sensitive examination for educational or training purposes was discussed with the Patient or Authorized Horse Rider. The Patient or Authorized Horse Rider has agreed to proceed with the sensitive examination. (Sensitive examination includes inspection and/or palpation of the breasts, pelvis, prostate and anorectal regions). EXAM: BP 114/72 Ht 5' .75 (1.54m) Wt 117 lb (53.1kg) LMP 12/23/2023 BMI 22.29 kg/(m2). GENERAL: pleasant, female in no apparent distress HEENT: Normocephalic and atraumatic NECK: Supple and full range of motion DERMATOLOGY: Normal and without lesions CHEST: Clear to auscultation, Normal inspiratory effort, [...] up for annual exam in one year. - No pelvic or breast exam per mother request in the past and patient discomfort. Declines pap smear 2. control counseling - ICD9: V25.09, ICD10: Z30.09 - NEXPLANON INSERTION if she desires 3. Menstrual suppression - ICD9: 626.8, ICD10: N94.89 -Continue continuous OCP 4. Intellectual disability - ICD9: 319, ICD10: F7 1) Health maintenance: 2) Contraception: combined hormonal contraceptives. Contraceptive options reviewed and information provided. 3) STD screening: Declined STD check. 4) Follow up one year or sooner as needed Fidelia Pugh APRN.[facility]12-17-2024 History of Present illness Narrative* Fidelia Pugh APRN.[facility] - 01/28/2024 11:38 AM EST Rochelle is a 29 year old who presents for an annual gynecologic exam without complaints. 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 Mother is sick today. Menses: 8 weeks on, 5 days off of OCP for continuous cycle. Pain with menses. Obsessive over bleeding at times. Contraception: combined hormonal contraceptives. No warning signs. any other time. HPV vaccine: No Last Pap: Not done HPV: N/A History of abnormal pap: No Last mammogram: never Sexually active: N OB History T0 L0 SAB0 IAB0 Ectopic0 Multiple0 Live Births0 Teacher'S Assistant History LMP: 12/23/2023 (Approximate), Having periods Age at Menarche: Age at First : Age at Menopause: Teacher'S Assistant History Comments: Sexual Activity: Never; No partner [...] Never Smokeless tobacco: Never Vaping Use Vaping status: Never Used Substance Use Topics Alcohol use: Never Drug use: Never REVIEW OF SYSTEMS Abdomen: No abdominal pain, nausea, vomiting, diarrhea, or constipation. No bloating, early satiety, indigestion, or increased flatulence. Bladder: No dysuria, gross hematuria, urinary frequency, urinary urgency, or incontinence. Breast: No breast lumps, nipple d/c, overlying skin changes, redness or skin retraction. Allergies and current medication updated:Yes SENSITIVE EXAM: The sensitive examination was discussed with the Patient or Patient's Authorized Horse Rider. As applicable, any other physician, advance practice provider, medical student, or other health professional student that will be observing or involved in the sensitive examination for educational or training purposes was discussed with the Patient or Authorized Horse Rider. The Patient or Authorized Horse Rider has agreed to proceed with the sensitive examination. (Sensitive examination includes inspection and/or palpation of the breasts, pelvis, prostate and anorectal regions). EXAM: BP 114/72 Ht 5' .75 (1.54m) Wt 117 lb (53.1kg) LMP 12/23/2023 BMI 22.29 kg/(m^2). GENERAL: pleasant, female in no apparent distress HEENT: Normocephalic and atraumatic NECK: Supple and full range of motion DERMATOLOGY: Normal and without lesions CHEST: Clear to auscultation, Normal inspiratory effort, [...] up for annual exam in one year. - No pelvic or breast exam per mother request in the past and patient discomfort. Declines pap smear 2. control counseling - ICD9: V25.09, ICD10: Z30.09 - NEXPLANON INSERTION if she desires 3. Menstrual suppression - ICD9: 626.8, ICD10: N94.89 -Continue continuous OCP 4. Intellectual disability - ICD9: 319, ICD10: F7 1) Health maintenance: 2) Contraception: combined hormonal contraceptives. Contraceptive options reviewed and information provided. 3) STD screening: Declined STD check. 4) Follow up one year or sooner as needed Fidelia Pugh APRN.CNM [facility] Miscellaneous Notes* Telephone Encounter - Azul Eaton RN - 12/28/2022 10:00 AM EST Patient's mother called and stated they decided not to proceed with with Nexplanon and want to stayon current OCP. She is going to try [...] daily. Azul Eaton RN [facility] History of Present illness Narrative* Fidelia Pugh APRN.CNM - 12/25/2022 3:26 PM EST Rochelle is a 27 year old who presents [...] L0 SAB0 IAB0 Ectopic0 Multiple0 Live Births0 Teacher'S Assistant History LMP: 12/22/2022 (Exact Date), Having periods Age at Menarche: Age at First : Age at Menopause: Teacher'S Assistant History Comments: Sexual Activity: Never; No partner [...] at this time and will defer to futurevisit. Patient is currently not sexually active. 2) [...] up one year or sooner as needed Fidelia Pugh APRN.CNM documented in this encounterMer[facility]01-27-[facility]23 Miscellaneous Notes* Telephone Encounter - Ila Fischer LPN - 03/09/2022 8:41 AM EST Received approval for medication. Pt notified and will check with pharmacy later today. Ila Fischer LPN' * Telephone Encounter - Ila Fischer LPN - 03/08/2022 3:09 PM EST Form completed and faxed to pt's insurance. Will await further instructions from insurance. Ila Fischer LPN * Telephone Encounter - Ila Fischer LPN - 03/08/2022 10:58 AM EST Paper PA completed and placed on providers desk for signature. Ila Fischer LPN * Telephone Encounter - Ila Fischer LPN - 03/08/2022 9:55 AM EST Received notice from pt's insurance provider stating that her Rx for Daysee is no longer on the list of covered medications. I contacted pt's pharmacy carrier as there were no alternatives listed. PAform to be faxed to office to be completed. Ila Fischer LPN documented in this encounterMer[facility]12-12-2022 Miscellaneous Notes* Telephone Encounter - Adeola Browning RN - 01/22/2022 10:30 AM EST Requested Prescriptions Pending Prescriptions Disp Refills DAYSEE 0.15 mg-30 mcg (84)/10 mcg (7) [Pharmacy Med Name: Daysee 0.15-0.03 &0.0MG TABS] 91 tablet 3 Sig: TAKE 1 TABLET BY MOUTH DAILY Last annual exam: 11/01/21 Please approve the above prescription(s) to electronically send to pharmacy. Adeola Browning RN documented in this encounterMercy Health Urbana HospitalConsult note Author Mando Ulloa [facility] Note Date/Time October 16, 2024 12:39pm [facility] Medical Records Department [address] [place] [address] Anesthesia Postop Eval I 10/16/24 1238 MR#: [id number] Acct: [id number] Name: ROCHELLE HOWARD Rep #[id number] : 1995 29 From: [employer] PCP: Dr. Vasquez Roy MD Status :REG SDC Y Race: C Location: [place] [id number] Anesthesia: Postop Eval I Current Vital Signs Temperature: 97 F Pulse Rate: 83 Blood Pressure: 113/73 Respiratory Rate: 16 Pulse Ox: 100 Assessment Airway patent: Yes Spontaneous unlabored respirations: Yes nausea: No Vomiting: No Anesthesia Complication: No Fluid Hydration Crystalloid volume administer (ml): 1,500 Total IV fluid infused: 1,500 Progress Note Anesthesia document: Postop Eval 1 completed: Yes 10/16/24 1239 <Electronically signed by Mando Ulloa CRNA> Date _ Mando Ulloa CRNA Cosigner Signature: Date CC: ~ Signed [facility] Work Phone: Evaluation note* Diagnosis Onset Date Resolution Status GERD (gastroesophageal reflux disease) acute Irritable bowel syndrome with constipation acute Irritable bowel syndrome with constipation acute [facility] Work Phone: Evaluation noteNo assessment information available [facility] Work Phone: Evaluation note* Diagnosis Encounter for gynecological examination (general) (routine) with abnormal findings- Primary control counseling General counseling for initiation of other contraceptive measures Menstrual suppression Other disorder of menstruation and other abnormal bleeding from female genital tract Intellectual disability Unspecified intellectual disabilities documented in this encounter [facility]* Diagnosis Onset Date Resolution Status Irritable bowel syndrome with constipation acute [facility] Work Phone: Evaluation note* Diagnosis Encounter for gynecological examination (general) (routine) without abnormal findings- Primary Intellectual disability Unspecified intellectual disabilities control counseling General counseling for initiation of other contraceptive measures Menstrual suppression Other disorder of menstruation and other abnormal bleeding from female genital tract [facility] Discharge instructionsAdditional Instructions 1. Please keep your surgical dressing clean dry and intact. Do not remove. Do not get it wet. 2. Continue rest, ice (behind your operative knee) and elevate per your postoperative instructions that were given to you at the day of your surgical consultation while in office. 3. Patient can be partial weightbearing with heel transfer only in cam boot to left lower extremity. Full weightbearing right lower extremity. 4. Please take all pain medication and prescriptions as written. 5. If you are a diabetic patient please continue tight glucose control while in the postoperative phase. 6. Please continue to follow-up with all your doctors visits prior and after surgery. 7. Please reach out to Dr. Mayorga, through the paging system in the hospital or private office with any questions or concerns. 8. Thank you for letting me be involved in your surgical care![facility] Work Phone: Reason for referral (narrative)* Outpatient Procedure (Routine) - Pending Review Specialty Diagnoses / Procedures Referred By Jesse freed Referred To Contact [facility] Diagnoses control counseling Procedures NEXPLANON INSERTION ETONOGESTREL IMPLANT SYSTEM INSERT DRUG IMPLANT DEVICE Fidelia Pugh APRN.CNM [address] [place] [address] [facility] [address] [place] [id number] Referral ID Status Reason Start Date Expiration Date Visits Requested Visits Authorized [id number] Pending Review Auto-Generat ed Referral 3 12/25/2023 1 1 [facility] for referral (narrative)No reason for referral information availableWMercy Health [facility] Work Phone: Chief Complaint and Reason for Visit Chief Complaint 4 week f/u 2 M FU EORDER Reason for Visit GERD (gastroesophage al reflux disease) Irritable bowel syndrome with constipation Irritable bowel syndrome with constipation Chief Complaint BACK PAIN/PT TO [facility] G RX TOE INJURY TO RIGHT FOOT Chief Complaint 1 YR FU EORDER Reason for Visit Irritable bowel synd david with constipation Chief Complaint 1 YR FU EORDER CONSTIPATION Reason for Visit Irritable bowel synd david with constipation Chief Complaint 1 YR FU EORDER CONSTIPATION Gastroparesis Reason for Visit Irritable bowel synd david with constipation Chief Complaint Admit Date 1 Y FU April 03, 2024 2:59pm RUQ PAIN April 23, 2024 7:4 5am Reason for Visit Admit Date GERD (gastroesophageal reflux disease) F ebruary 2024 2:59pm Irritable bowel syndrome with constipati on April 03, 2024 2:59pm Chief Complaint Admit Date 1 Y FU April 03, 2024 2:59pm RUQ PAIN April 23, 2024 7:4 5am RUQ May 20, 2024 11:4 4am Chief Complaint Admit Date 1 Y FU April 03, 2024 2:59pm RUQ PAIN April 23, 2024 7:4 5am RUQ May 20, 2024 11:4 4am CHEST PAIN June 30, 2024 12:57 pm Chief Complaint Admit Date CHEST PAIN June 30, 2024 12:57 pm 6 M FU October 01, 2024 3: 11pm Chief Complaint Admit Date CHEST PAIN June 30, 2024 12:57 pm 6 M FU October 01, 2024 3: 11pm Endoscopic gastrocnemius recession, Sept 2024 8:13am Family History No Family History Records Found Relationship Condition Age at Onset Recorded Date/T hero mother Asthma Unknown Hypertension Unknown Coronary artery disease Unknown Myocardial infarction Unknown Atrial fibrillation Unknown Advance Directives No Advanced Directives Records Found Advance Directive Response Recorded Date/ Time Advance Directives Yes March 22, 2016 6:17pm Living Will No March 31 8:12pm Power of Baggage Agent Supervisor No March 31, 2019 8:12pm Advance Directive Response Recorded Date/ Time Advance Directives Yes March 22, 2016 5:17pm Living Will No March 31 7:12pm Power of Baggage Agent Supervisor No March 31, 2019 7:12pm Advance Directive Response Recorded Date/ Time Living Will No March 31 8:12pm Power of Baggage Agent Supervisor No March 31, 2019 8:12pm Advance Directives Yes March 22, 2016 6:17pm Advance Directive Response Recorded Date/ Time Living Will No March 31 8:12pm Do you have a Healthcare Power of Baggage Agent Supervisor? No March 31, 2019 8:12pm Advance Directives Yes March 22, 2016 6:17pm Advance Directive Response Recorded Date/ Time Living Will No March 31 8:12pm Do you have a Healthcare Power of Baggage Agent Supervisor? No March 31, 2019 8:12pm Do you have a Healthcare Power of Baggage Agent Supervisor? No June 30, 2024 2:36pm Advance Directives Yes March 22, 2016 6:17pm Advance Directive Response Recorded Date/ Time Do you have a Healthcare Power of Baggage Agent Supervisor? No June 30, 2024 2:36pm Advance Directives Yes March 22, 2016 6:17pm Advance Directive Response Recorded Date/ Time Do you have a Healthcare Power of Baggage Agent Supervisor? No June 30, 2024 2:36pm Do you have a Healthcare Power of Baggage Agent Supervisor? No October 09, 2024 8:14am Advance Directives Yes March 22, 2016 6:17pm Summary Purpose Additional Source Comments Goals (unrecognized section and content) Goals may be documented in a n alternate sectionGoals may be documented in an alternate sectionGoals may be documented in an alternate sectionGoals may be documented in an alternate sectionGoals may be documented in an alternate sectionGoals may be documented in an alternate sectionGoals may be documented in an alternate sectionGoals may be documented in an alternate sectionGoals may be documented in an alternate sectionGoals may be documented in an alternate sectionGoals may be documented in an alternate sectionGoals may be documented in an alternate sectionGoals may be documented in an alternate sectionGoals may be documented in an alternate sectionGoals may be documented in an alternate sectionGoals may be documented in an alternate section Source Comments (unrecognize d section and content) In the event this informatio n is protected by the Federal Confidentiality of Alcohol and Drug Abuse Patient Records regulations: The Federal rules restrict any use of the information to criminally investigate or prosecute any alcohol or drug abuse patient.[facility] HospitalIn the event this information is protected by the Federal Confidentiality of Alcohol and Drug Abuse Patient Records regulations: The Federal rules restrict any use of the information to criminally investigate or prosecute any alcohol or drug abuse patient.[facility] HospitalIn the event this information is protected by the Federal Confidentiality of Alcohol and Drug Abuse Patient Records regulations: The Federal rules restrict any use of the information to criminally investigate or prosecute any alcohol or drug abuse patient.[facility] HospitalIn the event this information is protected by the Federal Confidentiality of Alcohol and Drug Abuse Patient Records regulations: The Federal rules restrict any use of the information to criminally investigate or prosecute any alcohol or drug abuse patient.[facility] HospitalIn the event this information is protected by the Federal Confidentiality of Alcohol and Drug Abuse Patient Records regulations: The Federal rules restrict any use of the information to criminally investigate or prosecute any alcohol or drug abuse patient.[facility] HospitalIn the event this information is protected by the Federal Confidentiality of Alcohol and Drug Abuse Patient Records regulations: The Federal rules restrict any use of the information to criminally investigate or prosecute any alcohol or drug abuse patient.[facility] Reason for Visit (unrecogniz ed section and content) Reason Comments Refill Request Reason Comments Medication Problem Reason Comments Yearly Exam Reason Comments Well Woman Reason Comments Surgery/OCP Care Teams (unrecognized sec tion and content) Control Systems Designer Relationship Specialty Start Date End Date Aurelia Lopez PCP - General Pediatrics 03/02/15 Team Status: Active Member Role Status Dates Dr. Aurelia Alvarez MD Family Provider Active Dr. Mike Roy MD Primary Care Provider Activ e Team Status: Inactive Member Role Status Dates Dr. Mike Roy MD Primary Care Provider, Attending Provider, Referring Provider Active Team Status: Inactive Member Role Status Dates Dr. Mike Roy MD Primary Care Provider Activ e Dr. Saurav Hernandez MD Attending Provider, Referring Pr ovider Active Team Status: Inactive Member Role Status Dates Dr. Mike Roy MD Primary Care Provider, Refe rring Provider Active Jenny Ravi DECORATOR LIGHTING FIXTURES, DECORATOR LIGHTING FIXTURES-C Attending Provider Active Team Status: Active Member Role Status Dates Dr. Mike Roy MD Primary Care Provider, Attending Provider, Referring Provider Active Control Systems Designer Relationship Specialty Start Date End Date Aurelia Lopez PCP - General Pediatrics 03/02/15 Team Status: Inactive Member Role Status Dates Dr. Mike Roy MD Primary Care Provider, Atte nding Provider Active Control Systems Designer Relationship Specialty Start Date End Date Aurelia Lopez PCP - General Pediatrics 03/02/15 Control Systems Designer Relationship Specialty Start Date End Date Aurelia Lopez PCP - General Pediatrics 03/02/15 Team Status: Inactive Member Role Status Dates Dr. Mike Roy MD Primary Care Provider, Refe rring Provider Active Dr. Avtar Kong DO Attending Provider Active Team Status: Inactive Member Role Status Dates Dr. Mike Roy MD Primary Care Provider Activ e Dr. Avtar Kong DO Attending Provider, Referring Provider Active Team Status: Active Member Role Status Dates Dr. Mike Roy MD Primary Care Provider Activ e Dr. Avtar Kong DO Attending Provider, Referring Provider Active Team Status: Active Member Role Status Dates Dr. Aurelia Alvarez MD Family Provider Active Dr. Vasquez Roy MD Primary Care Provider Acti ve Team Status: Inactive Member Role Status Dates Dr. Vasquez Roy MD Primary Care Provider, Ref erring Provider Active Dr. Avtar Kong DO Attending Provider Active Team Status: Inactive Member Role Status Dates Dr. Vasquez Roy MD Primary Care Provider, Attending Provider, Referring Provider Active Team Status: Inactive Member Role Status Dates Dr. Vasquez Roy MD Primary Care Provider Acti ve Dr. Avtar Kong DO Attending Provider, Referring Provider Active Control Systems Designer Relationship Specialty Start Date End Date Aurelia Lopez MD PCP - General Pediatrics 03/02/15 Team Status: Active Member Role Status Dates Dr. Vasquez Roy MD Primary Care Provider Acti ve Team Status: Inactive Member Role Status Dates Dr. Vasquez Roy MD Primary Care Provider Acti ve Start: April 03, 2024 End: April 03, 2024 Dr. Vasquez Roy MD Referring Provider Active Start: April 03, 2024 End: April 03, 2024 Dr. Avtar Kong DO Attending Provider Active Start: April 03, 2024 End: April 03, 2024 Team Status: Inactive Member Role Status Dates Dr. Vasquez Roy MD Primary Care Provider Acti ve Start: April 14, 2024 End: April 14, 2024 Dr. Avtar Kong DO Attending Provider Active Start: April 14, 2024 End: April 14, 2024 Dr. Avtar Kong DO Referring Provider Active Start: April 14, 2024 End: April 14, 2024 Team Status: Active Member Role Status Dates Dr. Vasquez Roy MD Primary Care Provider Acti ve Start: April 23, 2024 Dr. Avtar Kong DO Attending Provider Active Start: April 23, 2024 Dr. Avtar Kong DO Referring Provider Active Start: April 23, 2024 Team Status: Inactive Member Role Status Dates Dr. Vasquez Roy MD Primary Care Provider Acti ve Start: April 23, 2024 End: April 23, 2024 Dr. Avtar Kong DO Attending Provider Active Start: April 23, 2024 End: April 23, 2024 Dr. Avtar Kong DO Referring Provider Active Start: April 23, 2024 End: April 23, 2024 Team Status: Inactive Member Role Status Dates Dr. Vasquez Roy MD Primary Care Provider Acti ve Start: May 20, 2024 End: May 20, 2024 Dr. Avtar Kong DO Attending Provider Active Start: May 20, 2024 End: May 20, 2024 Dr. Avtar Kong DO Referring Provider Active Start: May 20, 2024 End: May 20, 2024 Team Status: Inactive Member Role Status Dates Dr. Vasquez Roy MD Primary Care Provider Acti ve Start: June 30, 2024 End: June 30, 2024 Dr. Michell Foster DO Emergency Provider Active Start: June 30, 2024 End: June 30, 2024 Control Systems Designer Relationship Specialty Start Date End Date Vasquez Roy MD Javier Casper [address] [address] PCP - General Family Medicine 08/24/24 Team Status: Active Member Role/Relationship Status Dates Dr. Vasquez Roy MD Primary Care Provider Acti ve Team Status: Inactive Member Role/Relationship Status Dates Dr. Vasquez Roy MD Primary Care Provider Acti ve Start: June 30, 2024 End: June 30, 2024 Dr. Michell Foster DO Attending Provider Active Start: June 30, 2024 End: June 30, 2024 Dr. Michell Foster DO Emergency Provider Active Start: June 30, 2024 End: June 30, 2024 Team Status: Active Member Role/Relationship Status Dates Dr. Vasquez Roy MD Primary Care Provider Acti ve Start: September 29, 2024 Dr. Vasquez Roy MD Attending Provider Active Start: September 29, 2024 Dr. Vasquez Roy MD Referring Provider Active Start: September 29, 2024 Team Status: Inactive Member Role/Relationship Status Dates Dr. Vasquez Roy MD Primary Care Provider Acti ve Start: October 01, 2024 End: October 01, 2024 Dr. Vasquez Roy MD Referring Provider Active Start: October 01, 2024 End: October 01, 2024 VELMA Diaz Attending Provider Active Start: October 01, 2024 End: October 01, 2024 Team Status: Inactive Member Role/Relationship Status Dates Dr. Vasquez Roy MD Primary Care Provider Acti ve Start: September 29, 2024 End: September 29, 2024 Dr. Vasquez Roy MD Attending Provider Active Start: September 29, 2024 End: September 29, 2024 Dr. Vasquez Roy MD Referring Provider Active Start: September 29, 2024 End: September 29, 2024 Team Status: Inactive Member Role/Relationship Status Dates Dr. Vasquez Roy MD Primary Care Provider Acti ve Start: October 08, 2024 End: October 08, 2024 Dr. Vasquez Roy MD Attending Provider Active Start: October 08, 2024 End: October 08, 2024 Dr. Vasquez Roy MD Referring Provider Active Start: October 08, 2024 End: October 08, 2024 Team Status: Active Member Role/Relationship Status Dates Dr. Vasquez Roy MD Primary Care Provider Acti ve Start: October 16, 2024 Dr. Juancarlos Mayorga DPM Attending Provider Active Start: October 16, 2024 Dr. Juancarlos Mayorga DPM Referring Provider Active Start: October 16, 2024 Team Status: Inactive Member Role/Relationship Status Dates Dr. Vasquez Roy MD Primary Care Provider Acti ve Start: October 16, 2024 End: October 16, 2024 Dr. Juancarlos Mayorga DPM Attending Provider Active Start: October 16, 2024 End: October 16, 2024 Dr. Juancarlos Mayorga DPM Referring Provider Active Start: October 16, 2024 End: October 16, 2024 INFORMATION SOURCE (unrecogn ized section and content) DATE CREATED AUTHOR 06/06/2022 [facility] DATE CREATED AUTHOR AUTHOR'S ORGANIZ ATION 08/28/2024 [facility] DATE CREATED AUTHOR AUTHOR'S ORGANIZ ATION 10/30/2024 [facility] FOR RECORDS PERTAINING TO PATIENTS [...] BE BASED ON THE PRIMARY CLINICAL RECORDS. [employer] provides no warranty or guarantee of the accuracy or completeness of information in this document.
[2024-10-30] MEDS: Lactated Ringers 1,000 ML 15 ML IV (14:17)
[2024-10-30] MEDS: Lactated Ringers 500 ML IV (15:04)
[2024-10-30] MEDS: Lidocaine 1% (5 ml sdv) 5 ML Vial 6 ML IV (15:12)
--- NOTE | 2024-10-30 15:37 | PCM.POST.ANE ---
Anesthesia: Postop Eval I Current Vital Signs Temperature: 97.2 F Pulse Rate: 72 Blood Pressure: 102/62 Respiratory Rate: 16 Pulse Ox: 100 Oxygen Delivery Method: Venturi Mask Assessment Airway patent: Yes Spontaneous unlabored respirations: Yes Mental status: Asleep nausea: No Vomiting: No Anesthesia Complication: No Fluid Hydration Crystalloid volume administer (ml): 700 Total IV fluid infused: 700 Progress Note Anesthesia document: Postop Eval 1 completed: Yes
[2024-10-30] MEDS: fentaNYL 100 MCG/2 ML Ampul IV (15:40)
--- NOTE | 2024-10-30 15:50 | OP.PCM_ITS ---
Operative Report (Standard) Operative Information Date of Procedure: 10/30/24 Pre-Operative Diagnosis: 1. Painful retained hardware, left foot Post-Operative Diagnosis: Same as preoperative diagnosis Surgery/Procedure Performed: Procedure #1: Removal of painful retained hardware, left foot iap displays analyst: Yes Glue Wheel Operator: Buddy Thomas PGY1 Tasks completed by first aid nurse: Opening and Closing Additional pastry assistant?: No Type of Anesthesia: General and Local RN Documented Start/Stop Times: Operation Date: 10/30/24 15:15 Case Time Into Pre-Op 10/30/24 13:44 Anesthesia Start 10/30/24 15:04 Into Room 10/30/24 15:04 Out of Pre-Op 10/30/24 15:04 Procedure Start 10/30/24 15:25 Procedure End 10/30/24 15:46 Anesthesia End 10/30/24 15:48 Out of Room 10/30/24 15:48 Into Recovery 10/30/24 15:51 Into Phase II Recovery 10/30/24 16:46 Out of Recovery 10/30/24 16:46 Out of Phase II 10/30/24 17:14 Procedure Start Time: 15:25 Procedure Stop Time: 15:46 Select all DRAINS/GRAFTS/IMPLANTS that apply: None Special Medications: Per anesthesia Estimated Blood Loss: 5 cc Fluids Replaced: Per anesthesia Specimen collected: No Description of surgery: Indications For Operation: Ms. Howard is a 29-year-old female who was admitted to [facility] for left foot surgery for hardware removal to the 2nd and 3rd digit. Patient is well-known to my clinic and just recently had surgical correction due to equinus and hammertoes to the left lower extremity. Patient is approximately 2 weeks postop from the initial procedure. Due to the patient's inability to stop from henrique her digits at the hardware to the 2nd and 3rd digit became loose and had to be reinserted at clinic during her first follow-up. During this week the patient followed up for her second week postoperative appointment and showed extreme loosening to the left third digit implantable hardware which was concerning for avascular necrosis and skin breakdown due to pressure on the dorsal skin of the third digit left foot. With this being a concern we deemed necessary to move forward with urgent hardware removal to the 2nd and 3rd digits of the left foot with all risk benefits discussed with the family and the patient in great detail. Chart review consent signed. Due to turned for the loosening of the hardware and breakdown of skin especially to the third digit we moved forward with procedure above to decrease the constant pain, decrease skin breakdown and infection and help relieve the constant pain to the left foot if the hardware was to become a problem. The nature of the problem, anticipated procedures, postop recovery/convalences and risk/complications include but not limited to infection, wound healing complications, digital amputation, hypertrophic scarring, numbness, tingling, chronic pain, CRPS, over and under correction, recurrence of deformity, DVT and or PE and the need for further surgery have been discussed in great detail with the patient. All questions have been answered to the patient's satisfaction. There are no guarantees given as to the outcome of the procedure. Description of Procedure: Under mild sedation, the patient was brought into the operating room and placed on the operating table in supine position. Once the patient was under general anesthesia with [place] mask airway, the left lower extremity was blocked using approximately 15 cc 0.5% Marcaine plain. Next, a well-padded thigh tourniquet was applied to the left lower extremity. Next, the left lower extremity was prepped and draped in normal aseptic manner. Next, a timeout was then undertaken verifying the correct patient, extremity, visibility of preoperative markings, availability of the equipment. Next, a form to Esmarch was used to exsanguinate the left lower extremity and elevated to 60 degrees for 1-minute prior to inflation of the left thigh tourniquet. Procedure #1: Removal of painful retained hardware, left foot (CPT code: 45305?T1, T2) Next, attention was directed to the dorsal aspect of the 2nd and 3rd digit as well as left lower extremity. All sutures were removed with pickup and #15 blade without incident. Next, full-thickness tissue down to bone and hardware was carried down over the dorsal aspect of the previous incision to the 2nd and 3rd digit left foot. The hardware was identified and loose in the medullary canal that it was originally placed in. Using a mosquito stat, the hardware was twisted and backed out of the 2nd and 3rd digit without incident. The hardware was passed the back table to be discarded. The incisions were flushed with copious normal saline. The deep layer was reapproximated closed with 3-0 Vicryl and deep suture technique. The skin was reapproximated close to the 2nd and 3rd digit of the left foot with 4-0 nylon in simple erupted suture technique. The left lower extremity was cleaned and patted dry. Betadine soaked Adaptic followed by dry sterile dressing and single layer Michael compression bandage and cam boot were donned to left lower extremity. The patient tolerated the procedure and anesthesia well and apparent satisfactory condition and was transported to the PACU for further monitoring prior to discharge home. Vital signs stable and vascular status intact to all digits bilateral. Post Operative Plan: Weightbearing: Patient can be weightbearing as tolerated cam boot to left lower extremity. Full weightbearing right lower extremity. Antibiotics: 2 g Ancef through the IV DVT Prophylaxis: Ambulation Ladd: None Dressing: Betadine soaked Adaptic dry sterile dressing single layer Mcihael compr ession bandage. Cam boot, left lower extremity X-Rays: Post-operative films taken on the operating room. Pain Medication: [id number] pain medication as needed Follow-up: Patient will follow-up at scheduled postoperative appointment in private office. Surgical Findings: Failed implanted device to the 2nd and 3rd digit of the left foot. Removal of painful retained hardware, second digit, third digit left foot. Complications Complications: No Admit VTE Documentation VTE Present on Admission: No VTE Mechan Device Prophylaxis: SCD's VTE Pharm Prophylaxis ordered?: Yes
--- NOTE | 2024-10-30 17:08 | POSTOPAN2_ITS ---
Anesthesia Postop Eval I Sum Postop Eval Completion status Anesthesia document: Postop Eval 1 completed: Yes Anesthesia Postop Eval I Summary Anesthesia Postop Eval I Summary: Anesthesia Postop Eval I: Assessment Summary Airway patent Yes 10/30/24 15:55 GRE INSTRUCTOR.APAT Spontaneous unlabored Yes 10/30/24 15:55 GRE INSTRUCTOR.APAT respirations Mental status Asleep 10/30/24 15:55 GRE INSTRUCTOR.APAT nausea No 10/30/24 15:55 GRE INSTRUCTOR.APAT Vomiting No 10/30/24 15:55 GRE INSTRUCTOR.APAT Anesthesia Postop Eval I: Fluid Summary Crystalloid volume administer 700 10/30/24 15:55 GRE INSTRUCTOR.APAT (ml) Colloids volume administered ( ml) Blood Product volume administered (ml) Total IV fluid infused 700 10/30/24 15:55 GRE INSTRUCTOR.APAT Anesthesia Postop Eval I: Summary Notes Anesthesia Complication No 10/30/24 15:55 GRE INSTRUCTOR.APAT Anesthesia Complication Comment: Post-operative progress note Anesthesia: Postop Eval II Evaluation Mental status: Awake Pain Level: 0 nausea: No Vomiting: No
--- NOTE | 2024-10-30 17:08 | PCM.POSTANE2 ---
Anesthesia Postop Eval I Sum Postop Eval Completion status Anesthesia document: Postop Eval 1 completed: Yes Anesthesia Postop Eval I Summary Anesthesia Postop Eval I Summary: Anesthesia Postop Eval I: Assessment Summary Airway patent Yes 10/30/24 15:55 ANIMAL CRUELTY INVESTIGATION SUPERVISOR.APAT Spontaneous unlabored Yes 10/30/24 15:55 ANIMAL CRUELTY INVESTIGATION SUPERVISOR.APAT respirations Mental status Asleep 10/30/24 15:55 ANIMAL CRUELTY INVESTIGATION SUPERVISOR.APAT nausea No 10/30/24 15:55 ANIMAL CRUELTY INVESTIGATION SUPERVISOR.APAT Vomiting No 10/30/24 15:55 ANIMAL CRUELTY INVESTIGATION SUPERVISOR.APAT Anesthesia Postop Eval I: Fluid Summary Crystalloid volume administer 700 10/30/24 15:55 ANIMAL CRUELTY INVESTIGATION SUPERVISOR.APAT (ml) Colloids volume administered ( ml) Blood Product volume administered (ml) Total IV fluid infused 700 10/30/24 15:55 ANIMAL CRUELTY INVESTIGATION SUPERVISOR.APAT Anesthesia Postop Eval I: Summary Notes Anesthesia Complication No 10/30/24 15:55 ANIMAL CRUELTY INVESTIGATION SUPERVISOR.APAT Anesthesia Complication Comment: Post-operative progress note Anesthesia: Postop Eval II Evaluation Mental status: Awake Pain Level: 0 nausea: No Vomiting: No
== END 2024-10-30 17:14 | disposition home or self-care (01) ==
LOC: SDC 13:36 → AC 13:42
PROVIDERS: PCP Family Medicine; Referring Provider Podiatrist Foot & Ankle Surgery; Visit Provider Podiatrist Foot & Ankle Surgery
PROC: (CPT 20680; principal; 2024-10-30 15:00)
DX: T84.84XA Pain due to internal orthopedic prosthetic devices, implants and grafts, initial encounter (principal); G80.9 Cerebral palsy, unspecified; F41.9 Anxiety disorder, unspecified; J45.901 Unspecified asthma with (acute) exacerbation; K21.9 Gastro-esophageal reflux disease without esophagitis; E55.9 Vitamin D deficiency, unspecified; Z13.1 Encounter for screening for diabetes mellitus; F98.8 Other specified behavioral and emotional disorders with onset usually occurring in childhood and adolescence
CPT/HCPCS: 20680; 01480; J2405

== ENCOUNTER → 2024-11-05 | Outpatient (CLI) | payer MEDICARE, MEDICAID, SELFPAY ==
--- NOTE | 2024-11-05 12:57 | RAD_ITS ---
PROCEDURE: ABD INC DECUB AND/OR ERECT 11/05/2024 REASON FOR EXAM: POSSIBLE BLOCKAGE TECHNIQUE: Procedure Code: RADABDMV Modality: DX Procedure: ABD INC DECUB AND/OR ERECT COMPARISON: None. FINDINGS: There is a nonobstructive bowel gas pattern. There are no abnormal soft tissue calcifications or radiopaque foreign bodies. There is mild levoscoliosis of the lumbar spine. RAD/Abd Inc Decub and/or Erect IMPRESSION: No evidence of bowel obstruction. Reading Location: [id number]
[2024-11-05 15:16] LABS: Hematocrit 47.7 % (37-47); Hemoglobin 15.9 g/dL (12.0-15.0); Immature Granulocytes Count 0.030 X10^3/uL (0.0-0.0); Mean Corp Hgb Conc 33.3 g/dL (32-36); Mean Corpuscular Volume 83.8 fL (81-99); Mean Platelet Vol. 9.8 fl (6.2-12.0); NRBC Flagged by Analyzer 0 % (0-5); Platelet Count 577 K/mm3 (150-450); RBC Distribution Width CV 13.0 % (11.6-14.6); RBC Distribution Width SD 39.9 fl (35.1-43.9); Red Blood Count 5.69 M/mm3 (4.2-5.4); White Blood Count 9.9 K/mm3 (4.4-11.0)
[2024-11-05 15:35] LABS: AST(SGOT) 28 U/L (<=31); Alanine Aminotransfer ALT/SGPT 36 U/L (<=34); Albumin, Serum 4.8 g/dL (3.5-5.0); Alkaline Phosphatase 119 U/L (35-104); Anion Gap 17 (5-15); BUN 16 mg/dL (4-19); BUN/Creat Ratio 19.7 RATIO (10-20); Calcium,Total 10.6 mg/dL (7.6-11.0); Carbon Dioxide 20.5 mmol/L (21.0-32.0); Chloride 104 mmol/L (98-108); Globulin 3.2 g/dL (2.2-4.2); Glucose 119 mg/dL (70-99); Potassium 4.6 mmol/L (3.3-5.1)
== END | disposition home or self-care (01) ==
PROVIDERS: PCP Family Medicine; Referring Provider Family Medicine; Visit Provider Family Medicine
DX: R10.9 Unspecified abdominal pain (principal)
CPT/HCPCS: 36415; 74019; 80053; 85025

== ENCOUNTER 2024-11-23 16:47 | Outpatient (RCR) | payer MEDICARE, MEDICAID, SELFPAY ==
--- NOTE | 2024-11-23 17:56 | HP.PTEVAL_ITS ---
Patient's Visit Information Visit Information Visit Information: ROCHELLE TRINH is a 29 year old F referred to Physical Therapy by Dr. Juancarlos Mayorga DPM with a diagnosis of LEFT ACHILLES TIGHT. Date of Evaluation: 11/23/24 Physical Therapist: Adarsh Beckham, PT, Cert MDT, OCS Visit Plan Frequency: 1 VISIT Plan: PT EVAL ONLY PATIENT WAS INSTRUCTED IN USE OF FWW WITH CAM BOAT AND WBAT PATIENT DID MUCH BETTER WITH FWW DUE TO PATIENT HAS TENDENCY TO CARRY WALKER AND GET OUT OF SEQUENCE AND WOULD PUT PATIENT HIGHER RISK OF FALLS * THUS RECOMMEND FWW* Subjective Subjective: This 29 y/o female presents to physical therapy with left tight Achilles . Patient underwent s/p on 10/16 .Short Achilles tendon, left lower extremity Hammertoes, 2nd, 3rd, 4th and 5th digits, left foot ,then had 2n surgery to remove painful hardware. Patient intailly NWB 3 weeks then PWB THEN 2 weeks ago WBAT with CAM boot only. C/O pain in left foot. Medication over counter. Patient needs assist with shower .Patient lexie home 2 steps with no rails and 1 step with ramp .no falls. C/O paresthesia toes. Condition affects boot. Patient has 24 hr care 7 days and week since surgery. RTD 12/02. Patient is here for 1 visit for walker training. Day care for 12weeks . SOCAIL: lives with mother Pain Right Ankle: Pain Intensity (Out of 10): N/A Pain Intensity Range: N/A Comment: unable to express Objective Objective: POSTURE: MILD FORWARD POSTURE OBSERVATION: Cam boot intact GAIT: ambulate with walker and left CAM boot intact with WBAT with verbal cues for proper seqeunce BALANCE: fair+ with walker MMT: quads/hams 4-/5 ,hip flexion 3+/5 ,right ankle 4/5 ,lrft NT in Cam boot Goals Goal 1:: Patient and mother was instructed with use of FWW with Cam boot left LLE . Goal Time Frame: 1 visist Rehabilitation Potential Physical Therapy Diagnosis: This patient had left achilles surgery and is on CAM boot and here for walker training with CAM boot on Rehabilitation Potential: Fair Anticipated Interventions Patient/Client Instruction: Educate patient on: Condition For the Purpose of:: Other Other: FWW Text: Thank you for the opportunity to evaluate your patient. For Medicare and Medicare HMO plans, please review the plan of care and approve it. It will need to be FAXED BACK to us at [phone] for Medicare purposes. For Medicare only, by signing this I certify the plan of care. Please let me know if there are questions or concerns regarding this plan of car e. Physician Signature: Date:
== END 2024-11-23 19:00 | disposition home or self-care (01) ==
LOC: PT 16:47
PROVIDERS: PCP Family Medicine; Referring Provider Podiatrist Foot & Ankle Surgery; Visit Provider Podiatrist Foot & Ankle Surgery
DX: M67.02 Short Achilles tendon (acquired), left ankle (principal)
CPT/HCPCS: 97162